=== PATIENT | female | born 1955 | race Asian ===

== ENCOUNTER → 2017-11-14 07:43 | Outpatient (CLI) | payer OTHER, SELFPAY ==
--- NOTE | 2017-11-14 08:15 | RAD_ITS ---
STUDY: X-RAY CHEST REASON FOR EXAM: Female, 62 years old. Chest pain TECHNIQUE: PA and lateral views of the chest. COMPARISON: Prior study of 10/14/2016 FINDINGS: There is minimal linear fibrosis or atelectasis of the right costophrenic angle. There is hemidiaphragmatic flattening with increased retrosternal airspace which may be associated with COPD. Normal size heart. Normal mediastinum and daiana. Normal visualized pulmonary arteries. There are calcified plaques of the aortic arch. There is demineralization of the osseous structures. Normal visualized ribs, clavicles, and shoulders. There is no demonstrated abnormality of the visualized soft tissue structures of the upper abdomen. RAD/Chest PA and Lateral IMPRESSION: Findings suggestive of COPD. Calcified plaques of the aortic arch. The bones are osteopenic. There is minimal linear fibrosis or atelectasis of the right costophrenic angle. This represents a new interval finding. Electronically Signed: Paras Ramirez MD at 17:59 EST , Service support ,
[2017-11-14 10:47] LABS: Anion Gap 7 (5-15); BUN 25 mg/dL (7-18); BUN/Creat Ratio 45.3 RATIO (10-20); Calcium,Total 8.3 mg/dL (8.5-10.1); Chloride 109 mmol/L (98-107); Cholesterol 186 mg/dL (200); Creatinine, Serum 0.55 mg/dL (0.55-1.02); EST Glomerular Filtration Rate 118 mL/min (>60); Est Glom Filt Rate - Afr Amer 142 mL/min (>60); Glucose 78 mg/dL (74-106); High Density Lipoprotein 62 mg/dL; Potassium 3.6 mmol/L (3.5-5.1); Sodium Level 143 mmol/L (136-145); T4 Free Direct 1.13 ng/dL (0.76-1.46); Thyroid Stim Hormone (TSH) 0.89 uIU/mL (0.358-3.74); Triglycerides 90 mg/dL; Very Low Density Lipoprotein 18 mg/dL (5-40)
== END ==
PROVIDERS: Family Provider Internal Medicine; PCP Internal Medicine; Visit Provider Internal Medicine
DX: R07.9 Chest pain, unspecified (principal); E03.9 Hypothyroidism, unspecified; I10 Essential (primary) hypertension; E87.6 Hypokalemia
CPT/HCPCS: 36415; 71046; 80048; 80061; 84439; 84443

== ENCOUNTER → 2017-11-22 06:52 | Outpatient (CLI) | payer OTHER, SELFPAY ==
--- NOTE | 2017-11-22 06:53 | CT_ITS ---
STUDY: CT CHEST WITHOUT CONTRAST REASON FOR EXAM: Female, 62 years old. Chest pain. Possible pulmonary scarring. RADIATION DOSAGE (If Supplied By Facility): CTDIvol = ( 9.21 ) mGy, DLP = ( 306.01 ) mGycm TECHNIQUE: Transaxial imaging was performed without the administration of intravenous contrast material. Multiplanar coronal and sagittal images were reformatted. Individualized dose optimization techniques were used for this CT. COMPARISON: Comparison is made with prior chest radiograph dated November 14, 2017. FINDINGS: Focal calcifications are seen in the left lobe of the thyroid. Single calcific density in the medial aspect of the isthmus. There is enlargement of the right lobe of the thyroid. There is evidence of groundglass appearance in both lung bases this may represent changes secondary to interstitial thickening and scarring. Small subpleural blebs are seen. Other differential diagnosis should include early bibasilar infiltrates a follow-up CT scan in 4 months is recommended for further evaluation. There is no demonstrated pleural abnormality. There are calcifications of the coronary arteries. Normal mediastinum. Normal hilar regions. Normal unenhanced pulmonary arteries. There is atherosclerotic calcification of the aortic arch. There is demineralization of the thoracic spine. There is no demonstrated abnormality of the visualized upper abdomen. CT/Chest without Contrast IMPRESSION: Groundglass appearance with subpleural blebs at the lung bases suggestive of bibasilar scarring. Follow-up CT scan in 4 months is recommended for further evaluation. Electronically Signed: Jey Harding MD at 8:47 EST Tel [phone], Service support ,
== END ==
PROVIDERS: Family Provider Internal Medicine; PCP Internal Medicine; Visit Provider Internal Medicine
DX: R07.9 Chest pain, unspecified (principal)
CPT/HCPCS: 71250

== ENCOUNTER → 2018-04-08 20:14 | Outpatient (CLI) | payer MEDICARE, SELFPAY | PROVIDERS: Family Provider Internal Medicine; PCP Internal Medicine; Visit Provider Psychiatry & Neurology Neurology | DX: G47.33 Obstructive sleep apnea (adult) (pediatric) (principal) | CPT/HCPCS: 95811 ==

== ENCOUNTER → 2018-08-15 14:24 | Outpatient (CLI) | payer MEDICARE, SELFPAY | PROVIDERS: Family Provider Internal Medicine; PCP Internal Medicine; Visit Provider Clinical Nurse Specialist Acute Care | DX: G47.33 Obstructive sleep apnea (adult) (pediatric) (principal) | CPT/HCPCS: 98960; G0463 ==

== ENCOUNTER → 2018-08-19 07:55 | Outpatient (CLI) | payer MEDICARE, OTHER, SELFPAY ==
--- NOTE | 2018-08-19 08:00 | CT_ITS ---
STUDY: CT CHEST WITHOUT CONTRAST REASON FOR EXAM: Female, 63 years old. Follow-up lung nodule RADIATION DOSAGE (If Supplied By Facility): CTDIvol = ( 9.01 ) mGy, DLP = ( 290.31 ) mGycm TECHNIQUE: Transaxial imaging was performed without the administration of intravenous contrast material. Multiplanar coronal and sagittal images were reformatted. Individualized dose optimization techniques were used for this CT. COMPARISON: November 22, 2017 CT chest FINDINGS: There is no visualized focal consolidation pleural effusion pulmonary edema pneumothorax are visualized suspicious nodule. There is trace bilateral lower lobe atelectasis. The groundglass opacity seen on prior study has nearly resolved. There is no demonstrated pleural abnormality. There is borderline cardiac enlargement. There is trace calcification of the coronary arteries. There are one or 2 nonspecific subcentimeter lymph nodes. Normal hilar regions. Normal unenhanced pulmonary arteries. There is atherosclerotic calcification of the aortic arch with tortuosity and elongation of the aortic arch and descending thoracic aorta. Normal osseous structures. There is a small hiatal hernia. There is an asymmetric appearance of the thyroid tissue. The left thyroid appears to been removed. There are surgical material demonstrated. Stable since prior study the right thyroid measures 3.8 x 1.6 cm in transverse view. There is a stable focus of low attenuation within the thyroid measuring 1.[address]/Chest without Contrast IMPRESSION: Minimal groundglass opacity in the lung bases compatible with atelectasis. No evidence of pulmonary nodule. Enlarged right thyroid lobe with lobulation and small focal cystic area status post left-sided thyroidectomy recommend follow-up ultrasound when appropriate. Electronically Signed: Birdie Wahl MD at 16:20 EST Tel , Service support ,
--- NOTE | 2018-08-19 08:14 | US_ITS ---
STUDY: THYROID ULTRASOUND REASON FOR EXAM: Female, 63 years old. Thyroid goiter TECHNIQUE: Ultrasound evaluation of the thyroid was performed with real-time and static nina-scale imaging. COMPARISON: None. FINDINGS: RIGHT LOBE: The right lobe of the thyroid gland measures 5.9 x 2.9 x 2.6 cm. There is a heterogeneous echotexture. There are 5 discrete nodules in the mid and lower pole of the RIGHT thyroid measuring 1.6 x 1.7 x 1.4 cm, 1.5 x 1.8 x 1.5 cm, 1.5 x 1 x 0.6 cm, 1.4 x 1.2 x 0.8 cm, and 0.8 x 1.0 x 0.9 cm. LEFT LOBE: There has been a LEFT thyroidectomy. There is a remnant of thyroid tissue measuring 2 x 0.7 x 0.8 centimeters. There are 2 small calcifications measuring 1 and 2 mm. ISTHMUS: The isthmus measures 2 mm . The regional lymph nodes are normal. US/Thyroid IMPRESSION: Status post LEFT thyroidectomy. There are multiple nodules in the RIGHT thyroid suggesting multinodular goiter. Electronically Signed: Bryon Mckeon MD at 7:14 EST , Service support ,
== END ==
PROVIDERS: Family Provider Internal Medicine; PCP Internal Medicine; Referring Provider Internal Medicine; Visit Provider Internal Medicine
DX: E04.9 Nontoxic goiter, unspecified (principal); R93.89 Abnormal findings on diagnostic imaging of other specified body structures; R91.8 Other nonspecific abnormal finding of lung field
CPT/HCPCS: 71250; 76536

== ENCOUNTER → 2018-09-06 11:49 | Outpatient (CLI) | payer MEDICARE, OTHER, SELFPAY ==
--- NOTE | 2018-09-06 | ASPS_PTH ---
PATIENT: SONAL WILKES LOC: [facility] U#:[id number] AGE/SX: 70/F ROOM: RE09/06/[address]: Dr. Sergio Colmenares MD : 1955 BED: DIS: SPEC #: [id number] RECD: 09/06/18 13:29 STATUS: MAGGIE CONCETTA #: [id number] XENA: 09/06/18 00:[address]: Sergio Colmenares DEPT: CYTOLOGY RECD BY: Samir Carpenter Tissues: Thyroid gland, NOS Procedures: Pap Stain (control) Special Stain Group II Cytology Other HEADER OPERATION: Ultrasound-guided fine needle aspiration right thyroid PRE-OP DIAGNOSIS: Multinodular goiter E04.2 TISSUE SUBMITTED: Fine needle aspiration right thyroid (12 slides) DIAGNOSIS CYTOLOGY Fine needle aspiration, right thyroid nodule (smears): Adequate for evaluation. Negative, consistent with colloid nodule. AM:kel 09/09/18 CYTOLOGY STUDY Slides are reviewed. CYTOLOGY GROSS Received are 12 smears labeled with the patient's name and designated per the requisition as right thyroid. Submitted for staining. 09/06/18 TC:5 CPT: 75754
[2018-09-06 08:19] VITALS: BMI 25.8
== END ==
PROVIDERS: Referring Provider Surgery; Visit Provider Surgery
DX: E04.2 Nontoxic multinodular goiter (principal)
CPT/HCPCS: 88161; 88313

== ENCOUNTER → 2018-10-15 11:00 | Outpatient (CLI) | payer MEDICARE, SELFPAY ==
[2018-09-13 09:29] VITALS: BMI 25.8
== END ==
PROVIDERS: PCP Internal Medicine; Referring Provider Internal Medicine; Visit Provider Internal Medicine
DX: T85.638A Leakage of other specified internal prosthetic devices, implants and grafts, initial encounter (principal)

== ENCOUNTER → 2018-10-28 16:02 | Outpatient (CLI) | payer MEDICARE, SELFPAY ==
[2018-10-09 10:07] VITALS: BMI 25.8
--- NOTE | 2018-10-28 16:27 | BI_ITS ---
MAMMOGRAPHY - BILATERAL SCREENING REASON FOR EXAM: Female, 63 years old. Routine annual screening examination. PERTINENT HISTORY: Non-contributory. TECHNIQUE: Digital bilateral breast ko (3D mammographic acquisition) in the CC and MLO projections. 2-D mediolateral oblique (MLO) and craniocaudad (CC) views of both breasts were obtained. CAD: Full Field Digital Mammography with Computer Added Detection was performed. COMPARISON: Comparison is made with prior study dated September 17, 2017. FINDINGS: Breast Composition: The breasts are almost entirely fatty. There are no dominant masses or suspicious calcifications. Stable small benign-appearing bilateral axillary lymph nodes. No other significant abnormalities are identified. There has been no significant change since the prior study. BI/SCREENING MAMM (CAD), BILAT IMPRESSION: Stable bilateral screening mammogram. Yearly follow-up mammogram recommended. (A) ASSESSMENT CATEGORY: BIRADS Category 2: Benign. A letter regarding these results will be sent to the patient by the facility within 30 days. Approximately 10% of breast cancers are not detected by mammography. A normal mammogram should not delay biopsy of a clinically suspicious abnormality. [id number] Electronically Signed: Jey Harding MD at 12:45 EST , Service support ,
== END ==
PROVIDERS: Family Provider Internal Medicine; PCP Internal Medicine; Referring Provider Internal Medicine; Visit Provider Internal Medicine
DX: Z12.31 Encounter for screening mammogram for malignant neoplasm of breast (principal)
CPT/HCPCS: 77063; 77067

== ENCOUNTER → 2018-12-30 11:15 | Outpatient (CLI) | payer MEDICARE, SELFPAY ==
[2018-12-30 10:44] VITALS: BMI 25.8
[2018-12-30 12:50] LABS: Anion Gap 6 (5-15); BUN 14 mg/dL (7-18); BUN/Creat Ratio 25.4 RATIO (10-20); Calcium,Total 8.7 mg/dL (8.5-10.1); Chloride 108 mmol/L (98-107); Creatinine, Serum 0.55 mg/dL (0.55-1.02); EST Glomerular Filtration Rate 117 mL/min (>60); Est Glom Filt Rate - Afr Amer 142 mL/min (>60); Glucose 87 mg/dL (74-106); Sodium Level 143 mmol/L (136-145)
[2018-12-30 14:07] LABS: Bacteria 0 SEEN /hpf (None Seen); Mucous, Urine 0 SEEN /hpf (<or=2+); Red Blood Cells-Urine 0 SEEN /hpf (0-5); Squamous Epithelial Cells - UA 0 SEEN /hpf (5-10); White Blood Cells 0 SEEN /hpf (0-5)
[2018-12-30 14:34] LABS: Color, Urine Yellow (Yellow); Glucose, Dipstick Normal (Normal); Ketone-Dipstick Negative (Negative); Leukocyte Esterase-Dipstick Negative /ul (Negative); Nitrite-Dipstick Negative (Negative); Occult Blood-Urine Negative /ul (Negative); Protein-Dipstick Negative (Negative); Urine Bilirubin Dipstick Negative (Negative); Urine Clarity Clear (Clear); Urine Urobilinogen Normal (Normal); Urine pH 6.5 (5.0 - 8.0)
== END ==
PROVIDERS: Family Provider Internal Medicine; PCP Internal Medicine; Referring Provider Internal Medicine; Visit Provider Internal Medicine
DX: N39.0 Urinary tract infection, site not specified (principal)
CPT/HCPCS: 36415; 80048; 81001; 87086; 87088

== ENCOUNTER → 2019-07-08 11:22 | Outpatient (CLI) | payer MEDICARE, OTHER, SELFPAY ==
[2019-07-08 10:36] VITALS: BMI 25.8
[2019-07-08 14:07] LABS: Absolute Lymphocyte Count 2.03 X10^3/uL (0.83-4.51); Absolute Neutrophil Count 3.7 X10^3/uL (2.0-7.7); Basophil# 0.06 X10^3/uL; Basophil% 0.9 % (0-1); Eosinophil# 0.16 X10^3/uL; Eosinophils% 2.5 % (0-5); Hemoglobin 12.8 g/dL (12.0-15.0); Lymphocyte # 2.03 X10^3/ul (4.0); Mean Corpuscular Hgb 30.6 pg (27.0-32.0); Mean Corpuscular Volume 95.7 fL (81-99); Mean Platelet Vol. 10.5 fl (6.2-12.0); Monocyte# 0.42 X10^3/uL; Monocyte% 6.6 % (0-10); NRBC Flagged by Analyzer 0 % (0-5); Neutrophil # 3.65 X10^3/uL (2.7-7.7); Neutrophil % 57.7 % (47-70); Platelet Count 252 K/mm3 (150-450); RBC Distribution Width CV 12.7 % (11.6-14.6); RBC Distribution Width SD 44.8 fl (35.1-43.9); Red Blood Count 4.18 M/mm3 (4.2-5.4); White Blood Count 6.3 K/mm3 (4.4-11.0)
[2019-07-08 14:40] LABS: ALB/GLOB Ratio 1.1 RATIO (0.9-2.4); AST(SGOT) 24 U/L (15-37); Alanine Aminotransfer ALT/SGPT 35 U/L (13-56); Albumin, Serum 3.8 g/dL (3.2-5.0); Alkaline Phosphatase 65 U/L (45-117); Anion Gap 7 (5-15); BUN 16 mg/dL (7-18); BUN/Creat Ratio 26.8 RATIO (10-20); Calcium,Total 8.7 mg/dL (8.5-10.1); Chloride 107 mmol/L (98-107); Cholesterol 202 mg/dL (200); EST Glomerular Filtration Rate 107 mL/min (>60); Est Glom Filt Rate - Afr Amer 129 mL/min (>60); Globulin 3.6 g/dL (2.2-4.2); Glucose 72 mg/dL (74-106); High Density Lipoprotein 65 mg/dL; Potassium 4.2 mmol/L (3.5-5.1); Protein, Total 7.4 g/dL (6.4-8.2); Sodium Level 143 mmol/L (136-145); Thyroid Stim Hormone (TSH) 0.63 uIU/mL (0.358-3.74); Triglycerides 118 mg/dL; Very Low Density Lipoprotein 24 mg/dL (5-40)
== END ==
PROVIDERS: Family Provider Internal Medicine; PCP Internal Medicine; Visit Provider Internal Medicine
DX: I10 Essential (primary) hypertension (principal); E03.9 Hypothyroidism, unspecified
CPT/HCPCS: 36415; 80053; 80061; 84443; 85025

== ENCOUNTER → 2019-07-10 10:31 | Outpatient (CLI) | payer MEDICARE, OTHER, SELFPAY ==
[2019-07-08 10:36] VITALS: BMI 25.8
--- NOTE | 2019-07-10 10:34 | EKG12_ITS ---
Test Reason : PRE OP Blood Pressure : / mmHG Vent. Rate : 077 BPM Atrial Rate : 077 BPM P-R Int : 120 ms QRS Dur : 070 ms QT Int : 354 ms P-R-T Axes : 045 044 -44 degrees QTc Int : 400 ms Normal sinus rhythm T wave abnormality, consider anterior ischemia Abnormal ECG Confirmed by DUANE MC, ENDER ([id number]), map editor KOLBY GAY ([id number]) on 07/16/2019 9:25:24 A M Referred By: Kranthi Kramer Confirmed By:RAI ZEPEDA MD
== END ==
PROVIDERS: Family Provider Internal Medicine; PCP Internal Medicine; Referring Provider Internal Medicine; Visit Provider Internal Medicine
DX: I10 Essential (primary) hypertension (principal)
CPT/HCPCS: 93005

== ENCOUNTER → 2019-08-01 06:19 | Outpatient (CLI) | payer MEDICARE, OTHER, SELFPAY ==
[2019-07-08 10:36] VITALS: BMI 25.8
[2019-07-24 11:26] VITALS: BMI 25.8
--- NOTE | 2019-08-01 11:45 | STRESSREP ---
Stress Test Report Date: 08-01-19 Procedure: Exercise tolerance test/imaging study Indications: Chest pain; abnormal ECG; atrial fibrillation status post EPS/RFA Consent: Per the patient Procedure: The patient exercised on a Joey protocol for 3 minutes completing Stage I achieving a peak heart rate of 206 bpm (133% predicted maximal heart rate) with a peak blood pressure of 146/72 mmHg and a peak met capacity of approximately 4 MET's. The baseline ECG demonstrated normal sinus rhythm; nonspecific T wave abnormality. The peak exercise ECG demonstrated somatic/motion artifact with nonspecific ST/T wave abnormality. There were occasional PACs and PVCs during exercise; there were brief episodes of an irregular narrow complex tachycardia appearing compatible with PAF during exercise; there was relatively regular narrow complex tachycardia appearing compatible with PSVT during recovery lasting 3 to 4 minutes with subsequent spontaneous resolution to sinus rhythm followed by occasional PACs and PVCs; During the episode appearing compatible PSVT there was associated nonspecific ST/T wave abnormality. The functional capacity was considered decreased. There was no complaint of chest discomfort during exercise or recovery. The examination was discontinued secondary to leg discomfort. Impression: 1. Technically adequate (percent predicted maximal heart rate greater than 85%) exercise tolerance test 2. Peak exercise ECG with somatic/motion artifact with nonspecific ST/T wave abnormality 3. There were occasional PACs and PVCs during exercise; there were brief episodes of an irregular narrow complex tachycardia appearing compatible PAF during exercise; there was relatively regular narrow complex tachycardia appearing compatible with PSVT during recovery lasting 3 to 4 minutes with subsequent spontaneous resolution to sinus rhythm followed by occasional PACs and PVCs; during the episode appearing compatible PSVT there was associated nonspecific ST/T wave abnormality 4. Nuclear images pending Myocardial perfusion imaging study: Technique: The patient was injected with 12.0 mCi of technetium 99m Cardiolite and subsequently rest SPECT Cardiolite nuclear imaging was obtained in the horizontal long, vertical long, and short axis views. The patient exercised on a Joey protocol for 3 minutes completing Stage I achieving a peak heart rate of 206 bpm (133% predicted maximal heart rate) with a peak blood pressure of 146/72 mmHg and a peak met capacity of approximately 4 MET's. The patient was injected with 36.0 mCi of technetium 99m Cardiolite and subsequently stress SPECT Cardiolite nuclear imaging was obtained in the horizontal long, vertical long, and short axis views. A gated Cardiolite study at peak stress was obtained. Interpretation: Rest and stress SPECT Cardiolite nuclear imaging status post realignment, normalization, and attenuation correction, demonstrates the appearance of relative uniform tracer uptake and myocardial perfusion appearing within normal limits. There is end systolic thickening and brightening. The gated Cardiolite study demonstrates myocardial thickening and inward wall motion. The reported LVEF is 87 %. Impression: 1. Rest and stress SPECT Cardiolite nuclear imaging demonstrate relative uniform tracer uptake and myocardial perfusion appearing within normal limits. 2. The gated Cardiolite study reports an LVEF of 87 %. Comment: The patient noted she had not taken her beta-mika prior to her exercise tolerance test. Status post completion of the patient's exercise tolerance test she reported being back to her baseline status with no ongoing symptoms and appeared to be hemodynamically stable. The patient was advised to continue her medical management with her beta-mika and continue outpatient follow-up with her primary care physician for further recommendations. This note was generated with [employer] software. It may contain incorrect words, spelling, and punctuation that were not noted in checking the note before signing.
== END ==
PROVIDERS: Family Provider Internal Medicine; PCP Internal Medicine; Referring Provider Internal Medicine; Visit Provider Internal Medicine
DX: R94.31 Abnormal electrocardiogram [ECG] [EKG] (principal); I10 Essential (primary) hypertension; I50.9 Heart failure, unspecified
CPT/HCPCS: 78452; 93017; A9500; A4216

== ENCOUNTER → 2019-10-22 12:59 | Outpatient (CLI) | payer MEDICARE, OTHER, SELFPAY ==
[2019-10-13 09:42] VITALS: BMI 25.8
--- NOTE | 2019-10-22 13:02 | US_ITS ---
STUDY: THYROID ULTRASOUND REASON FOR EXAM: Female, 64 years old. Nodules -- LT THYROID REMOVED TECHNIQUE: Ultrasound evaluation of the thyroid was performed with real-time and static nina-scale imaging. COMPARISON: Comparison is made with prior examination dated August 19, 2018. FINDINGS: RIGHT LOBE: The right lobe of the thyroid gland is enlarged and measures 5.8 cm x 2.4 cm x 2.0 cm. There is a heterogeneous echotexture. Once again, there are 5 discrete nodules in the mid and lower pole of the right thyroid. The largest measures 1.8 cm x 1.7 cm x 1.5 cm. This is in the lower pole. This is solid and cystic in nature. This is unchanged. LEFT LOBE: The left lobe of the thyroid gland has been surgically removed. ISTHMUS: The isthmus measures 2.2 mm. The regional lymph nodes are normal. US/Thyroid IMPRESSION: Multiple nodules are seen in the right lobe of the thyroid. This is unchanged. The patient is status post left thyroidectomy. Electronically Signed: Jey Harding, at 14:06 EST , Service support ,
--- NOTE | 2019-10-22 13:02 | BI_ITS ---
MAMMOGRAPHY - BILATERAL SCREENING REASON FOR EXAM: Female, 64 years old. Routine annual screening examination. PERTINENT HISTORY: Non-contributory. TECHNIQUE: Digital bilateral breast claudia (3D mammographic acquisition) in the CC and MLO projections. 2-D mediolateral oblique (MLO) and craniocaudad (CC) views of both breasts were obtained. CAD: Full Field Digital Mammography with Computer Added Detection was performed. COMPARISON: Comparison is made with prior study dated October 28, 2018 and September 17, 2017. FINDINGS: Breast Composition: There are scattered areas of fibroglandular density. There are no dominant masses or suspicious calcifications. Stable small bilateral axillary lymph nodes. No other significant abnormalities are identified. There has been no significant change since the prior study. BI/SCREEN MAMM (CAD) W/CLAUDIA BILAT IMPRESSION: Stable bilateral screening mammogram. Yearly follow-up mammogram recommended. (A) ASSESSMENT CATEGORY: BIRADS Category 2: Benign. A letter regarding these results will be sent to the patient by the facility within 30 days. Approximately 10% of breast cancers are not detected by mammography. A normal mammogram should not delay biopsy of a clinically suspicious abnormality. [id number] Electronically Signed: Jey Harding, at 15:15 EST , Service support ,
== END ==
PROVIDERS: Family Provider Internal Medicine; PCP Internal Medicine; Referring Provider Internal Medicine; Visit Provider Internal Medicine
DX: Z12.31 Encounter for screening mammogram for malignant neoplasm of breast (principal); E04.1 Nontoxic single thyroid nodule
CPT/HCPCS: 76536; 77063; 77067

== ENCOUNTER → 2020-06-23 10:47 | Outpatient (CLI) | payer MEDICARE, OTHER, SELFPAY ==
[2020-06-23 10:15] VITALS: BMI 25.8
[2020-06-23 12:43] LABS: Absolute Lymphocyte Count 1.97 X10^3/uL (0.83-4.51); Absolute Neutrophil Count 3.7 X10^3/uL (2.0-7.7); Basophil# 0.04 X10^3/uL; Basophil% 0.6 % (0-1); Eosinophil# 0.16 X10^3/uL; Eosinophils% 2.5 % (0-5); Hematocrit 38.8 % (37-47); Hemoglobin 12.6 g/dL (12.0-15.0); Lymphocyte # 1.97 X10^3/ul (4.0); Lymphocyte % 31.2 % (19-41); Mean Corp Hgb Conc 32.5 g/dL (32-36); Mean Corpuscular Hgb 30.7 pg (27.0-32.0); Mean Corpuscular Volume 94.6 fL (81-99); Mean Platelet Vol. 10.5 fl (6.2-12.0); Monocyte# 0.42 X10^3/uL; Monocyte% 6.7 % (0-10); NRBC Flagged by Analyzer 0 % (0-5); Neutrophil # 3.69 X10^3/uL (2.7-7.7); Neutrophil % 58.5 % (47-70); Platelet Count 251 K/mm3 (150-450); RBC Distribution Width CV 12.7 % (11.6-14.6); RBC Distribution Width SD 43.8 fl (35.1-43.9); White Blood Count 6.3 K/mm3 (4.4-11.0)
[2020-06-23 13:17] LABS: AST(SGOT) 18 U/L (15-37); Alanine Aminotransfer ALT/SGPT 30 U/L (13-56); Albumin, Serum 3.7 g/dL (3.2-5.0); Alkaline Phosphatase 65 U/L (45-117); Anion Gap 4 (5-15); BUN 20 mg/dL (7-18); Chloride 110 mmol/L (98-107); Cholesterol 194 mg/dL (200); Creatinine, Serum 0.61 mg/dL (0.55-1.02); EST Glomerular Filtration Rate 105 mL/min (>60); Est Glom Filt Rate - Afr Amer 127 mL/min (>60); Globulin 3.6 g/dL (2.2-4.2); Glucose 90 mg/dL (74-106); High Density Lipoprotein 65 mg/dL; Potassium 3.6 mmol/L (3.5-5.1); Protein, Total 7.3 g/dL (6.4-8.2); Sodium Level 142 mmol/L (136-145); Triglycerides 160 mg/dL; Very Low Density Lipoprotein 32 mg/dL (5-40)
== END ==
PROVIDERS: PCP Internal Medicine; Visit Provider Internal Medicine
DX: I10 Essential (primary) hypertension (principal)
CPT/HCPCS: 36415; 80053; 80061; 85025

== ENCOUNTER → 2020-08-31 11:00 | Outpatient (CLI) | payer MEDICARE, OTHER, SELFPAY ==
[2020-08-19 10:22] VITALS: BMI 26.4
== END ==
PROVIDERS: PCP Internal Medicine; Referring Provider Nurse Practitioner Acute Care; Visit Provider Nurse Practitioner Acute Care
DX: G47.33 Obstructive sleep apnea (adult) (pediatric) (principal)
CPT/HCPCS: 98960; G0463

== ENCOUNTER → 2020-10-28 15:00 | Outpatient (CLI) | payer MEDICARE, SELFPAY ==
[2020-10-08 10:16] VITALS: BMI 26.0
--- NOTE | 2020-10-28 15:03 | BI_ITS ---
MAMMOGRAPHY - BILATERAL SCREENING REASON FOR EXAM: Female, 65 years old. Routine annual screening examination. PERTINENT HISTORY: Non-contributory. TECHNIQUE: Digital bilateral breast claudia (3D mammographic acquisition) in the CC and MLO projections. 2-D mediolateral oblique (MLO) and craniocaudad (CC) views of both breasts were obtained. CAD: Full Field Digital Mammography with Computer Added Detection was performed. COMPARISON: Comparison is made with prior study dated 10/22/2019 and 10/28/2018. FINDINGS: Breast Composition: There are scattered areas of fibroglandular density. There are no dominant masses or suspicious calcifications. No other significant abnormalities are identified. There has been no significant change since the prior study. BI/SCRN MAMM (CAD)W/CLAUDIA BILAT IMPRESSION: Stable bilateral screening mammogram. Yearly follow-up mammogram recommended. (A) ASSESSMENT CATEGORY: BIRADS Category 1: Negative. A letter regarding these results will be sent to the patient by the facility within 30 days. Approximately 10% of breast cancers are not detected by mammography. A normal mammogram should not delay biopsy of a clinically suspicious abnormality. [id number] Electronically Signed: Jey Harding MD at 8:20 EST , Service support ,
== END ==
PROVIDERS: PCP Internal Medicine; Referring Provider Internal Medicine; Visit Provider Internal Medicine
DX: Z12.31 Encounter for screening mammogram for malignant neoplasm of breast (principal)
CPT/HCPCS: 77063; 77067

== ENCOUNTER → 2020-12-13 20:05 | Outpatient (CLI) | payer MEDICARE, SELFPAY ==
[2020-11-30 10:59] VITALS: BMI 25.8
== END ==
PROVIDERS: PCP Internal Medicine; Referring Provider Internal Medicine Critical Care Medicine; Visit Provider Internal Medicine Critical Care Medicine
DX: G47.33 Obstructive sleep apnea (adult) (pediatric) (principal)
CPT/HCPCS: 95811

== ENCOUNTER → 2021-07-08 10:49 | Outpatient (CLI) | payer MEDICARE, SELFPAY ==
[2021-07-08 12:18] LABS: Absolute Lymphocyte Count 1.85 X10^3/uL (0.83-4.51); Absolute Neutrophil Count 3.5 X10^3/uL (2.0-7.7); Basophil# 0.05 X10^3/uL; Basophil% 0.9 % (0-1); Eosinophil# 0.11 X10^3/uL; Eosinophils% 1.9 % (0-5); Hematocrit 39.7 % (37-47); Hemoglobin 13.2 g/dL (12.0-15.0); Lymphocyte # 1.85 X10^3/ul (0.83-4.51); Lymphocyte % 31.7 % (19-41); Mean Corp Hgb Conc 33.2 g/dL (32-36); Mean Corpuscular Hgb 31.4 pg (27.0-32.0); Mean Corpuscular Volume 94.3 fL (81-99); Monocyte# 0.31 X10^3/uL; Monocyte% 5.3 % (0-10); NRBC Flagged by Analyzer 0 % (0-5); Neutrophil # 3.49 X10^3/uL (2.7-7.7); Neutrophil % 59.9 % (47-70); Platelet Count 261 K/mm3 (150-450); RBC Distribution Width CV 13.1 % (11.6-14.6); RBC Distribution Width SD 44.4 fl (35.1-43.9); Red Blood Count 4.21 M/mm3 (4.2-5.4); White Blood Count 5.8 K/mm3 (4.4-11.0)
[2021-07-08 12:57] LABS: AST(SGOT) 17 U/L (15-37); Alanine Aminotransfer ALT/SGPT 25 U/L (13-56); Albumin, Serum 3.8 g/dL (3.2-5.0); Alkaline Phosphatase 56 U/L (45-117); Anion Gap 5 (5-15); BUN 21 mg/dL (7-18); BUN/Creat Ratio 33.4 RATIO (10-20); Chloride 108 mmol/L (98-107); Cholesterol 211 mg/dL (200); Creatinine, Serum 0.63 mg/dL (0.55-1.02); EST Glomerular Filtration Rate 100 mL/min (>60); Est Glom Filt Rate - Afr Amer 121 mL/min (>60); Globulin 3.9 g/dL (2.2-4.2); Glucose 73 mg/dL (74-106); High Density Lipoprotein 65 mg/dL; Potassium 4.1 mmol/L (3.5-5.1); Protein, Total 7.7 g/dL (6.4-8.2); Sodium Level 141 mmol/L (136-145); Thyroid Stim Hormone (TSH) 0.27 uIU/mL (0.358-3.74); Triglycerides 123 mg/dL; Very Low Density Lipoprotein 25 mg/dL (5-40)
== END ==
PROVIDERS: PCP Internal Medicine; Referring Provider Internal Medicine; Visit Provider Internal Medicine
DX: I10 Essential (primary) hypertension (principal)
CPT/HCPCS: 36415; 80053; 80061; 84443; 85025

== ENCOUNTER 2021-10-14 10:20 | Outpatient (CLI) | payer MEDICARE, SELFPAY ==
[2021-10-14 11:33] LABS: T4 Free Direct 0.99 ng/dL (0.76-1.46); Thyroid Stim Hormone (TSH) 0.36 uIU/mL (0.358-3.74)
== END 2021-10-14 23:59 | disposition short-term general hospital (02) ==
LOC: BIMLAB 10:20
PROVIDERS: PCP Internal Medicine; Referring Provider Internal Medicine; Visit Provider Internal Medicine
DX: R94.6 Abnormal results of thyroid function studies (principal)
CPT/HCPCS: 36415; 84439; 84443

== ENCOUNTER 2021-11-10 20:08 | Outpatient (CLI) | payer MEDICARE, SELFPAY | END 2021-11-10 23:59 | disposition home or self-care (01) | PROVIDERS: PCP Internal Medicine; Referring Provider Nurse Practitioner Acute Care; Visit Provider Nurse Practitioner Acute Care | DX: G47.33 Obstructive sleep apnea (adult) (pediatric) (principal) | CPT/HCPCS: 95811 ==

== ENCOUNTER 2021-11-29 13:11 | Outpatient (CLI) | payer MEDICARE, SELFPAY ==
--- NOTE | 2021-11-29 13:13 | BI_ITS ---
MAMMOGRAPHY - BILATERAL SCREENING REASON FOR EXAM: Female, 66 years old. Routine annual screening examination. PERTINENT HISTORY: Non-contributory. TECHNIQUE: Digital bilateral breast claudia (3D mammographic acquisition) in the CC and MLO projections. 2-D mediolateral oblique (MLO) and craniocaudad (CC) views of both breasts were obtained. CAD: Full Field Digital Mammography with Computer Added Detection was performed. COMPARISON: Comparison is made with prior study dated 10/28/2020 and 04/21/2020. FINDINGS: Breast Composition: There are scattered areas of fibroglandular density. There are no dominant masses or suspicious calcifications. Stable small benign-appearing bilateral No other significant abnormalities are identified. There has been no significant change since the prior study. BI/SCRN MAMM (CAD)W/CLAUDIA BILAT IMPRESSION: Stable bilateral screening mammogram. Yearly follow-up mammogram recommended. (A) ASSESSMENT CATEGORY: BIRADS Category 2: Benign. A letter regarding these results will be sent to the patient by the facility within 30 days. Approximately 10% of breast cancers are not detected by mammography. A normal mammogram should not delay biopsy of a clinically suspicious abnormality. [id number] Electronically Signed: Jey Harding MD at 14:21 EST ,
== END 2021-11-29 23:59 | disposition home or self-care (01) ==
LOC: OPBI 13:12
PROVIDERS: PCP Internal Medicine; Referring Provider Nurse Practitioner Family; Visit Provider Nurse Practitioner Family
DX: Z12.31 Encounter for screening mammogram for malignant neoplasm of breast (principal)
CPT/HCPCS: 77063; 77067

== ENCOUNTER 2022-01-03 09:00 | Outpatient (CLI) | payer MEDICARE, SELFPAY | END 2022-01-03 23:59 | disposition home or self-care (01) | LOC: SL 09:56 | PROVIDERS: PCP Internal Medicine; Referring Provider Nurse Practitioner Acute Care; Visit Provider Nurse Practitioner Acute Care | DX: Z46.89 Encounter for fitting and adjustment of other specified devices (principal) ==

== ENCOUNTER → 2022-05-09 | Outpatient (CLI) | payer MEDICARE, SELFPAY | END | disposition home or self-care (01) | LOC: SL 11:20 | PROVIDERS: PCP Internal Medicine; Visit Provider Nurse Practitioner Acute Care | DX: G47.33 Obstructive sleep apnea (adult) (pediatric) (principal) | CPT/HCPCS: 98960; G0463 ==

== ENCOUNTER → 2022-07-27 | Outpatient (CLI) | payer MEDICARE, SELFPAY ==
[2022-07-27 16:37] LABS: Absolute Lymphocyte Count 2.18 X10^3/uL (0.83-4.51); Basophil# 0.06 X10^3/uL; Basophil% 0.9 % (0-1); Eosinophil# 0.21 X10^3/uL; Hematocrit 40.6 % (37-47); Hemoglobin 13.6 g/dL (12.0-15.0); Lymphocyte # 2.18 X10^3/ul (0.83-4.51); Lymphocyte % 31.1 % (19-41); Mean Corp Hgb Conc 33.5 g/dL (32-36); Mean Corpuscular Volume 92.5 fL (81-99); Mean Platelet Vol. 10.3 fl (6.2-12.0); Monocyte# 0.51 X10^3/uL; Monocyte% 7.3 % (0-10); NRBC Flagged by Analyzer 0 % (0-5); Neutrophil # 4.03 X10^3/uL (2.7-7.7); Neutrophil % 57.4 % (47-70); Platelet Count 271 K/mm3 (150-450); RBC Distribution Width CV 12.2 % (11.6-14.6); RBC Distribution Width SD 41.6 fl (35.1-43.9); Red Blood Count 4.39 M/mm3 (4.2-5.4)
[2022-07-27 16:51] LABS: ALB/GLOB Ratio 1.1 RATIO (0.9-2.4); AST(SGOT) 27 U/L (15-37); Alanine Aminotransfer ALT/SGPT 48 U/L (13-56); Albumin, Serum 3.7 g/dL (3.2-5.0); Alkaline Phosphatase 67 U/L (45-117); Anion Gap 4 (5-15); BUN 19 mg/dL (7-18); BUN/Creat Ratio 17.4 RATIO (10-20); Calcium,Total 8.6 mg/dL (8.5-10.1); Chloride 110 mmol/L (98-107); Cholesterol 214 mg/dL (200); Creatinine, Serum 1.09 mg/dL (0.55-1.02); EST Glomerular Filtration Rate 53 mL/min (>60); Est Glom Filt Rate - Afr Amer 64 mL/min (>60); Globulin 3.4 g/dL (2.2-4.2); Glucose 96 mg/dL (74-106); High Density Lipoprotein 58 mg/dL; Potassium 3.6 mmol/L (3.5-5.1); Protein, Total 7.1 g/dL (6.4-8.2); Sodium Level 142 mmol/L (136-145); Triglycerides 152 mg/dL; Very Low Density Lipoprotein 30 mg/dL (5-40)
== END | disposition home or self-care (01) ==
LOC: BIMLAB 14:38
PROVIDERS: PCP Internal Medicine; Referring Provider Internal Medicine; Visit Provider Internal Medicine
DX: I10 Essential (primary) hypertension (principal)
CPT/HCPCS: 36415; 80053; 80061; 85025

== ENCOUNTER 2022-09-07 13:30 | Outpatient (RCR) | payer MEDICARE, SELFPAY ==
--- NOTE | 2022-08-03 09:00 | HP.PTEVAL ---
Patient's Visit Information SONAL WILKES is a 67 year old F referred to Physical Therapy by Dr. Kranthi Kramer MD with a diagnosis of PAIN IN R HIP. Date of Evaluation: 08/03/22 Physical Therapist: Merlene Dangelo PT, Cert MDT - Visit Plan Frequency: 2-3x /Week Duration: 4-6 Weeks Plan: *CHECK AUTH: RECORD # OF VISITS APPROVED AND EXPIRATION DATE. CHECK CODES APPROVED WITH POC*. POSTURE CORRECTION/STRENGTHENING, INSTRUCTION IN APPROPRIATE BODY MECHANICS AND ACTIVITY MODIFICATIONS. DLS STARTING WITH A NEUTRAL SPINE PROGRESSING ROM TOLERATED. RANULFO LE ROM, STRETCHING AND STRENGTHENING. HEP INSTRUCTION. 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 WORKING 2 DAYS A WEEK. WORK INVOLVES STANDING AND WALKING. Present symptoms: RIGHT LOW BACK, RIGHT HIP AND RIGHT THIGH PAIN TO THE KNEE. RIGHT THIGH NUMBNESS. Present since: COUPLE YEARS. Pain Scale: WORST 8/10, LEAST 3/10. Currently: 3/10. Is it getting better, worse or staying the same: UNCHANGING. Commenced as a result of: NO APPARENT REASON. Symptoms at onset: SAME. Worse: STANDING AND WALKING. Better: SITTING. Disturbed sleep: NO. Previous history/Previous treatment: PAIN MEDICINE. NO BACK OR HIP SURGERY. NO BACK OR HIP INJECTIONS. NO CHIROPRACTIC. NO PHYSICAL THERAPY FOR BACK OR HIP. Coughing/sneezing/straining: NO. Gait: PATIENT REPORTS IT HURTS TO STAND AND WALK ON IT. SHE REPORTS SHE LIMPS. NOT CURRENTLY USING ANY ASSISTIVE DEVICES. Bowel or Bladder Dysfunction: NO. Accidents: NO. Unexplained weight loss: NO. Imaging: STUDY: X-RAY - PELVIS AND RIGHT HIP. REASON FOR EXAM: Female, 67 years old. Right Hip Pain. TECHNIQUE: 3 views of the pelvis and hip. COMPARISON: None. . FINDINGS: There is a non-specific bowel gas pattern. Normal visualized soft tissue. structures. Osteopenia. Mild arthrosis of both sacroiliac joints. Normal bilateral superior and. inferior pubic rami. Mild arthrosis of the symphysis pubis. Normal. bilateral ischial tuberosities. Mild arthrosis of both hips. . RAD/HIP, UNI W/ Pelvis 2-3 Views. IMPRESSION: Osteopenia with mild arthrosis of the sacroiliac joints, symphysis pubis. and both hips. . No acute abnormality, evidence of erosive changes or fusion. . Electronically Signed: Cameron Donovan,. at 12:09 EDT. PMH/Recent major surgery: HEART ABLATION IN THE - Objective Sitting/Standing Posture: POOR. NO RELEVENT LUMBAR LATERAL SHIFT. DECREASED LORDOSIS. Active Correction of posture: NE. Other Observations: THIS PATIENT AMBULATES INDEP'LY INTO PT WITH DECREASED CADANCE LIMPING ON RIGHT LE. NO AD OR LOB. PATIENT IS ABLE TO TRANSFER INDEP'LY FROM SIT TO STAND WITHOUT UE ASSIST. Sensory deficit: DECREASED RIGHT ANTERIOR AND LATERAL R THIGH LIGHT TOUCH SENSATION COMPARED TO LEFT. ROM deficit: MILD RANULFO HS AND GASTROC SOLEUS COMPLEX TIGHTNESS. FULL PAINFREE RANULFO HIP FLEXION. RANULFO HIP ROTATION, ABD AND EXTENSION ROM WFL AND SYMMETRICAL. PATIENT DENIES INCREASED RIGHT BACK AND HIP PAIN WITH RANULFO LE ROM TESTING. Motor deficit: RANULFO LE STRENGTH GROSSLY 5/5 WITH MMT'ING AND PATIENT DENIES INCREASED PAIN WITH MMT'ING. Dural Signs: results unclear. Lumbar mvmt loss: flex - MOD. ext - JOSE. R SG - MOD. L SG - MIN. PATIENT C/O. Core strength: POOR. Palpation: NO ACUTE LUMBAR OR RIGHT HIP TENDERNESS WITH PALPATION. - Balance/Special Test Scores Oswestry Low Back Score: 11 - Goals Goal 1:: DECREASE C/O LOW BACK AND RIGHT LE SX'S Goal Time Frame: 4-6 Weeks Goal 2:: IMPROVE LIFTING, WORK/HOMEMAKING STANDING AND WALKING FUNCTION Goal Time Frame: 4-6 Weeks Goal 3:: INSTRUCT IN PROPHYLAXIS Goal Time Frame: 4-6 Weeks - Anticipated Interventions Patient/Client Instruction: Educate patient on: Condition, Plan of Care, Risk Factors For the Purpose of:: To improve self management Therapeutic Exercise to Include: Strength training, Body mechanics, Postural training, Flexibilty training, Gait and locomotor training, Neuromotor development, In an aquatic setting, Dynamic Lumbar Stabilization For the Purpose of:: To decrease pain, To increase ROM, To improve muscle performance and motor function, To increase tolerance to activity/condition/position, To improve ability of physical actions for home/community/work/leisure, To improve gait and locomotor functions Thermo therapy (hot pack): Yes Ultrasound (thermal/non thermal): Yes For the Purpose of:: To decrease pain, To improve nutrient delivery to tissue Thank you for the opportunity to evaluate your patient. For Medicare and Medicare HMO plans, please review the plan of care and approve it. It will need to be FAXED BACK to us at [phone] for Medicare purposes. For Medicare only, by signing this I certify the plan of care. Please let me know if there are questions or concerns regarding this plan of care. Physician Signature: Date:
--- NOTE | 2022-09-07 13:43 | HP.PTDCSUM_ITS ---
It has been my pleasure to treat SONAL WILKES referred by Dr. Kranthi Kramer MD, with the diagnosis of PAIN IN R HIP for a total of 7 visit(s). Discharge Date: 09/07/22 Please see the following information for a summary of their discharge status. Subjective: PATIENT REPORTS THE WATER IS HELPING AND SHE IS GLAD WE SUGGESTED IT. PATIENT REPORTS SHE IS HAVING LESS PAIN. STATES SHE HAS BEEN TRYING TO DO HER HEP AT LEAST ONCE A DAY TOO. PATIENT REPORTS SHE IS GOING TO LOOK INTO GETTING A [employer] MEMBERSHIP TO CONTINUE THE WATER EX'S ON HER OWN. % Improvement: 80 Objective/Function: PATIENT WAS SEEN TODAY FOR RE-ASSESSMENT OF PROGRESS TOWARD THE SET PT GOALS AND THE NEED FOR FURTHER PHYSICAL THERAPY VS READINESS FOR DISCHARGE. ALL GOALS MET. PATIENT IS INDEP WITH A HEP AND HAS ALSO LEARNED WATER EX'S THAT SHE HAS BENEFITED FROM. SHE AMBULATES INDEP'LY INTO PT TODAY WITH GOOD CADANCE AND WITHOUT A LIMP. RANULFO LE STRENGTH AND ROM WFL. Lumbar mvmt loss today: flex - MIN. ext - MOD. R SG - MOD. L SG - MIN. PATIENT DENIES PAIN WITH LUMBAR ROM TESTING. SHE IS APPROPRIATE FOR AND AGREEABLE TO DISCHARGE. PATIENT PLANS TO USE HER [employer] MEMBERSHIP. Goal 1:: DECREASE C/O LOW BACK AND RIGHT LE SX'S Goal Progress: Goal Met Goal 2:: IMPROVE LIFTING, WORK/HOMEMAKING STANDING AND WALKING FUNCTION Goal Progress: Goal Met Goal 3:: INSTRUCT IN PROPHYLAXIS Goal Progress: Goal Met Plan: D/C TO INDEP EX. If there are questions or concerns regarding this patient's physical therapy, please feel free to call me at [phone]. Thank you for the referral of this patient. Sincerely, Merlene Dangelo, PT, Cert MDT Balance/Gait/Functional tests - Balance/Special Test Scores Oswestry Low Back Score: 5
== END 2022-09-07 13:53 | disposition home or self-care (01) ==
LOC: PT 13:30
PROVIDERS: PCP Internal Medicine; Referring Provider Internal Medicine; Visit Provider Internal Medicine
DX: M25.551 Pain in right hip (principal); M79.651 Pain in right thigh
CPT/HCPCS: 97113; 97162; 97164

== ENCOUNTER → 2022-10-30 | Outpatient (CLI) | payer MEDICARE, SELFPAY ==
[2022-10-30 12:06] LABS: Absolute Lymphocyte Count 1.99 X10^3/uL (0.83-4.51); Absolute Neutrophil Count 3.7 X10^3/uL (2.0-7.7); Basophil# 0.07 X10^3/uL; Basophil% 1.1 % (0-1); Eosinophil# 0.22 X10^3/uL; Eosinophils% 3.5 % (0-5); Hematocrit 41.9 % (37-47); Hemoglobin 13.3 g/dL (12.0-15.0); Lymphocyte # 1.99 X10^3/ul (0.83-4.51); Lymphocyte % 31.4 % (19-41); Mean Corp Hgb Conc 31.7 g/dL (32-36); Mean Corpuscular Volume 94.4 fL (81-99); Mean Platelet Vol. 10.4 fl (6.2-12.0); Monocyte# 0.39 X10^3/uL; Monocyte% 6.2 % (0-10); NRBC Flagged by Analyzer 0 % (0-5); Neutrophil # 3.65 X10^3/uL (2.7-7.7); Neutrophil % 57.5 % (47-70); Platelet Count 269 K/mm3 (150-450); RBC Distribution Width CV 12.7 % (11.6-14.6); RBC Distribution Width SD 43.7 fl (35.1-43.9); Red Blood Count 4.44 M/mm3 (4.2-5.4); White Blood Count 6.3 K/mm3 (4.4-11.0)
[2022-10-31 10:30] LABS: Anion Gap 7 (5-15); BUN 24 mg/dL (7-18); BUN/Creat Ratio 33.4 RATIO (10-20); Chloride 107 mmol/L (98-107); Creatinine, Serum 0.72 mg/dL (0.55-1.02); EST Glomerular Filtration Rate 85 mL/min (>60); Est Glom Filt Rate - Afr Amer 103 mL/min (>60); Glucose 84 mg/dL (74-106); Potassium 4.1 mmol/L (3.5-5.1); Sodium Level 143 mmol/L (136-145)
== END | disposition home or self-care (01) ==
LOC: BIMLAB 10:33
PROVIDERS: PCP Internal Medicine; Visit Provider Internal Medicine
DX: I10 Essential (primary) hypertension (principal)
CPT/HCPCS: 36415; 80048; 85025

== ENCOUNTER → 2022-12-20 | Outpatient (CLI) | payer MEDICARE, SELFPAY ==
--- NOTE | 2022-12-20 09:58 | BI_ITS ---
MAMMOGRAPHY - BILATERAL SCREENING REASON FOR EXAM: Female, 67 years old. Routine annual screening examination. PERTINENT HISTORY: Non-contributory. TECHNIQUE: Digital bilateral breast claudia (3D mammographic acquisition) in the CC and MLO projections. 2-D mediolateral oblique (MLO) and craniocaudad (CC) views of both breasts were obtained. CAD: Full Field Digital Mammography with Computer Added Detection was performed. COMPARISON: Comparison is made with prior study of November 29, 2021 and October 28, 2020. FINDINGS: Breast Composition: There are scattered areas of fibroglandular density. There are no dominant masses or suspicious calcifications. Stable small benign-appearing bilateral axillary lymph nodes. No other significant abnormalities are identified. There has been no significant change since the prior study. BI/SCRN MAMM (CAD)W/CLAUDIA BILAT IMPRESSION: Stable bilateral screening mammogram. Yearly follow-up mammogram recommended. (A) ASSESSMENT CATEGORY: BIRADS Category 2: Benign. A letter regarding these results will be sent to the patient by the facility within 30 days. Approximately 10% of breast cancers are not detected by mammography. A normal mammogram should not delay biopsy of a clinically suspicious abnormality. [id number] Electronically Signed: Jey Harding MD at 11:04 EDT ,
--- NOTE | 2022-12-20 10:26 | BD_ITS ---
STUDY: DUAL ENERGY X-RAY ABSORPTIOMETRY / DXA REASON FOR EXAM: Female, 67 years old. Post menopausal TECHNIQUE: Bone Mineral Density (BMD) measurements of lumbar spine and bilateral hips were obtained. COMPARISON: None. FINDINGS: Lumbar Spine (L1-L4): g/cm2 (0.789) / T-score (-2.3) / Z-score (-0.2) Findings are suggestive of osteopenia with a high fracture risk. Left Femur Total: g/cm2 (0.721) / T-score (-1.8) / Z-score (-0.3) Left Femoral Neck: g/cm2 (0.543) / T-score (-2.8) / Z-score (-1.0) Right Femur Total: g/cm2 (0.774) / T-score (-1.4) / Z-score (0.1) Right Femoral Neck: g/cm2 (0.576) / T-score (-2.5) / Z-score (-0.7) BD/Dexa Bone Density Study IMPRESSION: The patient is considered osteoporotic as outlined below according to World [employer] Organization (WHO) criteria with a high fracture risk. Reference Information: The T-score is the number of standard deviations above or below the standard which is normal for young adults at their peak bone mineral density. The World Health Organization (WHO) interprets the T-scores as follows: Above -1 Normal bone density Between -1 and -2.5 Osteopenia Equal to / or below -2.5 Osteoporosis As a practical clinical guideline, osteopenia may be graded as follows: Mild -1 through -1.5 Moderate -1.6 through -2.0 Severe -2.1 through -2.4 The Z-score is the number of standard deviations above or below age-matched controls. A Z-score of less than -1.5 would be considered abnormal. References: 1. NIH Osteoporosis and Related Bone Diseases www osteo.org 2. International Society for Clinical Densitometry www iscd.org 3. National Osteoporosis Foundation www nof.org Electronically Signed: Jey Harding MD at 14:56 EDT ,
== END | disposition home or self-care (01) ==
LOC: OPBD 09:54
PROVIDERS: PCP Internal Medicine; Visit Provider Internal Medicine
DX: Z78.0 Asymptomatic menopausal state (principal); Z12.31 Encounter for screening mammogram for malignant neoplasm of breast
CPT/HCPCS: 77063; 77067; 77080

== ENCOUNTER → 2023-06-11 | Outpatient (CLI) | payer MEDICARE, SELFPAY ==
[2023-06-11 12:46] LABS: Vitamin D,25 Hydroxy 56.7 ng/mL
[2023-06-11 13:08] LABS: AST(SGOT) 28 U/L (15-37); Alanine Aminotransfer ALT/SGPT 37 U/L (13-56); Albumin, Serum 3.7 g/dL (3.2-5.0); Alkaline Phosphatase 67 U/L (45-117); Anion Gap 7 (5-15); BUN 22 mg/dL (7-18); Chloride 108 mmol/L (98-107); Cholesterol 232 mg/dL (200); Creatinine, Serum 0.67 mg/dL (0.55-1.02); EST Glomerular Filtration Rate 93 mL/min (>60); Est Glom Filt Rate - Afr Amer 112 mL/min (>60); Globulin 3.7 g/dL (2.2-4.2); Glucose 70 mg/dL (74-106); High Density Lipoprotein 59 mg/dL; Potassium 3.9 mmol/L (3.5-5.1); Protein, Total 7.4 g/dL (6.4-8.2); Sodium Level 142 mmol/L (136-145); Triglycerides 113 mg/dL; Very Low Density Lipoprotein 23 mg/dL (5-40)
== END | disposition home or self-care (01) ==
LOC: BIMLAB 10:20
PROVIDERS: PCP Internal Medicine; Referring Provider Internal Medicine; Visit Provider Internal Medicine
DX: M81.0 Age-related osteoporosis without current pathological fracture (principal); I10 Essential (primary) hypertension
CPT/HCPCS: 36415; 80053; 80061; 82306

== ENCOUNTER → 2023-09-03 | Outpatient (CLI) | payer MEDICARE, SELFPAY ==
[2023-09-03 13:09] LABS: Cholesterol 213 mg/dL (200); High Density Lipoprotein 60 mg/dL; Triglycerides 100 mg/dL; Very Low Density Lipoprotein 20 mg/dL (5-40)
== END | disposition home or self-care (01) ==
LOC: BIMLAB 10:31
PROVIDERS: PCP Internal Medicine; Referring Provider Internal Medicine; Visit Provider Internal Medicine
DX: E78.5 Hyperlipidemia, unspecified (principal)
CPT/HCPCS: 36415; 80061

== ENCOUNTER 2023-09-27 13:36 | Outpatient (CLI) | payer MEDICARE, SELFPAY ==
[2023-09-27 13:48] VITALS: BP 137/78; PULSE 74; RESP 16; TEMP 36.2; O2SAT 98; BMI 27.1
[2023-09-27] MEDS: Zoledronic Acid 5 MG 100 ML 300 MG IV (14:00)
[2023-09-27] MEDS: 0.9% NaCl Peripheral Flush Adult/Peds IV (14:00)
--- OUTSIDE RECORDS SUMMARY | 2023-09-27 14:01 | XMS RPT_ITS | CCD ---
Author Name Unknown Address [address] [place] [address] Organization [facility] Care Team Providers Care Lead Sustainability Specialist Name Role Phone MARY MOCK Unavailable Unavailable MARY MOCK Unavailable Unavailable BROOKE GARAY (METAL BUGGY OPERATOR) Unavailable Unavailable ELMER VELAZQUEZ Unavailable Unavailable ELMER VELAZQUEZ Unavailable Unavailable Allergies Allergy Classification Reported Allergen(s) Allergy Type Date of Onset Reaction(s) Facility (1 source) Penicillins; Translations: [PENICILLINS] Propensity to adverse reactions to drug (disorder) 4 [facility] Repository (1 source) sertraline; Translations: [SERTRALINE HCL] Drug Allergy 7 [facility] Repository (1 source) traMADol; Translations: [TRAMADOL] Drug Allergy 7 [facility] Repository (1 source) traZODone; Translations: [TRAZODONE] Drug Allergy 8 [facility] Repository Problems Problem Classification Problem Date Documented Da te Episodic/Chronic External Injury - Fall (1 source) Unspecified fall, initial encounter; Translations: [Unspecified fall, initial encounter] Onset: 05-17-2017 Results Test Name Value Interpretation Reference Range Facil ity Encounters Encounter Date Encounter Type Care Provider Facility Start: 06-19-2017 End: 07-09-2017 Ambulatory ELMER VELAZQUEZ [facility] Start: 05-31-2017 End: 06-06-2017 Ambulatory BROOKE (METAL BUGGY OPERATOR) JARROD [facility] Start: 05-17-2017 End: 05-23-2017 Ambulatory MARY MOCK [facility] Summary Purpose Family History No Family History Records Found Advance Directives No Advanced Directives Records Found Additional Source Comments INFORMATION SOURCE (unrecogn ized section and content) FOR RECORDS PERTAINING TO PATIENTS WHO ARE OR HAVE BEEN ENROLLED IN A CHEMICAL DEPENDENCY/SUBSTANCEABUSE PROGRAM, SOME INFORMATION MAY BE OMITTED. This clinical summary was aggregated from multiple sources. Caution should be exercised in using it in the provision of clinical care. This summary normalizes information from multiple sources, and as a consequence, information in this document may materially change the coding, format and clinical context of patient data. In addition, data may be omitted in some cases. CLINICAL DECISIONS SHOULD BE BASED ON THE PRIMARY CLINICAL RECORDS. [facility] provides no warranty or guarantee of the accuracy or completeness of information in this document.
[2023-09-27 14:26] VITALS: BP 130/76; PULSE 65; RESP 16; TEMP 36.1; O2SAT 97
== END 2023-09-27 13:37 | disposition home or self-care (01) ==
LOC: MEDOUTP 13:37
PROVIDERS: PCP Internal Medicine; Referring Provider Internal Medicine; Visit Provider Internal Medicine
DX: M81.0 Age-related osteoporosis without current pathological fracture (principal)
CPT/HCPCS: 96365; A4216; J3489

== ENCOUNTER → 2023-12-27 | Outpatient (CLI) | payer MEDICARE, SELFPAY ==
--- NOTE | 2023-12-27 09:57 | BI_ITS ---
MAMMOGRAPHY - BILATERAL SCREENING REASON FOR EXAM: Female, 68 years old. Routine annual screening examination. PERTINENT HISTORY: Non-contributory. TECHNIQUE: Digital bilateral breast claudia (3D mammographic acquisition) in the CC and MLO projections. 2-D mediolateral oblique (MLO) and craniocaudad (CC) views of both breasts were obtained. CAD: Full Field Digital Mammography with Computer Added Detection was performed. COMPARISON: Comparison is made with prior study December 20, 2022 and November 29, 2021. FINDINGS: Breast Composition: The breasts are almost entirely fatty. There are no dominant masses or suspicious calcifications. Stable small benign-appearing bilateral axillary lymph nodes. No other significant abnormalities are identified. There has been no significant change since the prior study. BI/SCRN MAMM (CAD)W/CLAUDIA BILAT IMPRESSION: Stable bilateral screening mammogram. Yearly follow-up mammogram recommended. (A) ASSESSMENT CATEGORY: BIRADS Category 2: Benign. A letter regarding these results will be sent to the patient by the facility within 30 days. Approximately 10% of breast cancers are not detected by mammography. A normal mammogram should not delay biopsy of a clinically suspicious abnormality. [id number] Electronically Signed: Jey Harding MD at 12:11 EDT ,
== END | disposition home or self-care (01) ==
LOC: OPBI 09:57
PROVIDERS: PCP Internal Medicine; Referring Provider Internal Medicine; Visit Provider Internal Medicine
DX: Z12.31 Encounter for screening mammogram for malignant neoplasm of breast (principal)
CPT/HCPCS: 77063; 77067

== ENCOUNTER → 2024-02-27 | Outpatient (CLI) | payer MEDICARE, SELFPAY ==
[2024-02-27 10:26] LABS: Bacteria 0 SEEN /hpf (None Seen); Mucous, Urine 0 SEEN /hpf (<or=2+); Red Blood Cells-Urine 0 SEEN /hpf (0-5); Squamous Epithelial Cells - UA 0 SEEN /hpf (5-10); White Blood Cells 0 SEEN /hpf (0-5)
[2024-02-27 12:04] LABS: Color, Urine Yellow (Yellow); Glucose, Dipstick Normal (Normal); Ketone-Dipstick 5 mg/dl (Negative); Leukocyte Esterase-Dipstick Negative /ul (Negative); Nitrite-Dipstick Negative (Negative); Occult Blood-Urine Negative /ul (Negative); Protein-Dipstick Negative (Negative); Specific Gravity, Urine 1.015 (1.002-1.030); Urine Bilirubin Dipstick Negative (Negative); Urine Clarity Clear (Clear); Urine Urobilinogen Normal (Normal); Urine pH 6.5 (5.0 - 8.0)
[2024-02-27 12:41] LABS: Absolute Lymphocyte Count 1.91 X10^3/uL (0.83-4.51); Basophil# 0.05 X10^3/uL; Basophil% 0.8 % (0-1); Eosinophil# 0.13 X10^3/uL; Hematocrit 43.9 % (37-47); Hemoglobin 14.4 g/dL (12.0-15.0); Lymphocyte # 1.91 X10^3/ul (0.83-4.51); Lymphocyte % 29.8 % (19-41); Mean Corp Hgb Conc 32.8 g/dL (32-36); Mean Corpuscular Hgb 30.5 pg (27.0-32.0); Mean Platelet Vol. 10.5 fl (6.2-12.0); Monocyte# 0.31 X10^3/uL; Monocyte% 4.8 % (0-10); NRBC Flagged by Analyzer 0 % (0-5); Neutrophil # 3.98 X10^3/uL (2.7-7.7); Neutrophil % 62.1 % (47-70); Platelet Count 284 K/mm3 (150-450); RBC Distribution Width CV 12.5 % (11.6-14.6); RBC Distribution Width SD 42.8 fl (35.1-43.9); Red Blood Count 4.72 M/mm3 (4.2-5.4); White Blood Count 6.4 K/mm3 (4.4-11.0)
[2024-02-27 12:52] LABS: ALB/GLOB Ratio 1.1 RATIO (0.9-2.4); AST(SGOT) 25 U/L (15-37); Alanine Aminotransfer ALT/SGPT 39 U/L (13-56); Alkaline Phosphatase 44 U/L (45-117); Anion Gap 8 (5-15); BUN 19 mg/dL (7-18); BUN/Creat Ratio 26.4 RATIO (10-20); Calcium,Total 9.2 mg/dL (8.5-10.1); Chloride 105 mmol/L (98-107); Cholesterol 253 mg/dL (200); Creatinine, Serum 0.72 mg/dL (0.55-1.02); EST Glomerular Filtration Rate 85 mL/min (>60); Est Glom Filt Rate - Afr Amer 103 mL/min (>60); Globulin 3.7 g/dL (2.2-4.2); Glucose 95 mg/dL (74-106); High Density Lipoprotein 64 mg/dL; Potassium 3.8 mmol/L (3.5-5.1); Protein, Total 7.7 g/dL (6.4-8.2); Sodium Level 140 mmol/L (136-145); Triglycerides 124 mg/dL; Very Low Density Lipoprotein 25 mg/dL (5-40)
== END | disposition home or self-care (01) ==
LOC: BIMLAB 10:15
PROVIDERS: PCP Internal Medicine; Visit Provider Internal Medicine
DX: I10 Essential (primary) hypertension (principal); N39.0 Urinary tract infection, site not specified
CPT/HCPCS: 36415; 80053; 80061; 81001; 85025

== ENCOUNTER → 2024-04-10 | Outpatient (CLI) | payer MEDICARE, SELFPAY ==
[2024-04-10 13:03] LABS: AST(SGOT) 27 U/L (15-37); Alanine Aminotransfer ALT/SGPT 40 U/L (13-56); Albumin, Serum 3.8 g/dL (3.2-5.0); Alkaline Phosphatase 51 U/L (45-117); Anion Gap 7 (5-15); BUN 18 mg/dL (7-18); BUN/Creat Ratio 27.2 RATIO (10-20); Calcium,Total 8.5 mg/dL (8.5-10.1); Chloride 111 mmol/L (98-107); Cholesterol 153 mg/dL (200); Creatinine, Serum 0.66 mg/dL (0.55-1.02); EST Glomerular Filtration Rate 94 mL/min (>60); Est Glom Filt Rate - Afr Amer 113 mL/min (>60); Globulin 3.7 g/dL (2.2-4.2); Glucose 91 mg/dL (74-106); High Density Lipoprotein 64 mg/dL; Potassium 3.7 mmol/L (3.5-5.1); Protein, Total 7.5 g/dL (6.4-8.2); Sodium Level 142 mmol/L (136-145); Triglycerides 81 mg/dL; Very Low Density Lipoprotein 16 mg/dL (5-40)
== END | disposition home or self-care (01) ==
LOC: BIMLAB 08:51
PROVIDERS: PCP Internal Medicine; Referring Provider Internal Medicine; Visit Provider Internal Medicine
DX: E78.5 Hyperlipidemia, unspecified (principal)
CPT/HCPCS: 36415; 80053; 80061

== ENCOUNTER → 2024-09-29 | Outpatient (CLI) | payer MEDICARE, SELFPAY ==
[2024-09-29 13:12] LABS: ALB/GLOB Ratio 1.1 RATIO (0.9-2.4); AST(SGOT) 23 U/L (15-37); Alanine Aminotransfer ALT/SGPT 45 U/L (13-56); Albumin, Serum 3.7 g/dL (3.2-5.0); Alkaline Phosphatase 58 U/L (45-117); Anion Gap 3 (5-15); BUN 21 mg/dL (7-18); BUN/Creat Ratio 28.5 RATIO (10-20); Calcium,Total 8.8 mg/dL (8.5-10.1); Chloride 112 mmol/L (98-107); Cholesterol 172 mg/dL (200); Creatinine, Serum 0.74 mg/dL (0.55-1.02); EST Glomerular Filtration Rate 83 mL/min (>60); Est Glom Filt Rate - Afr Amer 100 mL/min (>60); Globulin 3.5 g/dL (2.2-4.2); Glucose 77 mg/dL (74-106); High Density Lipoprotein 66 mg/dL; Potassium 3.9 mmol/L (3.5-5.1); Protein, Total 7.2 g/dL (6.4-8.2); Sodium Level 142 mmol/L (136-145); Triglycerides 93 mg/dL; Very Low Density Lipoprotein 19 mg/dL (5-40)
== END | disposition home or self-care (01) ==
LOC: BIMLAB 11:11
PROVIDERS: PCP Internal Medicine; Referring Provider Internal Medicine; Visit Provider Internal Medicine
DX: E78.5 Hyperlipidemia, unspecified (principal)
CPT/HCPCS: 36415; 80053; 80061

== ENCOUNTER → 2024-11-13 | Outpatient (CLI) | payer MEDICARE, SELFPAY ==
--- NOTE | 2024-11-13 16:00 | RAD_ITS ---
PROCEDURE: CERV SPINE 2 OR 3 VIEWS REASON FOR EXAM: Neck pain. TECHNIQUE: 3 views of the cervical spine. COMPARISON: None. FINDINGS: Cervical vertebral bodies are seen to the upper thoracic level on the sagittal view. Cervical vertebral bodies maintain a normal height. There is mild levocurvature of the cervical spine. There is minimal disc space narrowing from C4-C7. No acute fracture or subluxation is identified. Atlantodental interval is intact. Odontoid process is intact. Lateral masses align. Prevertebral soft tissues are unremarkable. RAD/Cerv Spine 2 or 3 Views IMPRESSION: 1. No acute osseous abnormality. 2. Mild degenerative changes. Reading Location: [facility]
== END | disposition home or self-care (01) ==
LOC: MTRAD 15:59
PROVIDERS: PCP Internal Medicine; Referring Provider Physician Assistant; Visit Provider Physician Assistant
DX: M54.2 Cervicalgia (principal)
CPT/HCPCS: 72040

== ENCOUNTER → 2024-12-24 | Outpatient (CLI) | payer MEDICARE, SELFPAY ==
[2024-12-24 13:14] LABS: Anion Gap 12 (5-15); BUN 17 mg/dL (4-19); Calcium,Total 9.5 mg/dL (7.6-11.0); Carbon Dioxide 25.2 mmol/L (21.0-32.0); Chloride 105 mmol/L (98-108); Cholesterol 187 mg/dL (<=200); Creatinine, Serum 0.74 mg/dL (0.70-1.20); EST Glomerular Filtration Rate 87 (>60); Glucose 78 mg/dL (70-99); High Density Lipoprotein 63 mg/dL; Low Density Lipoprotein Calc. 91 mg/dL; Potassium 4.2 mmol/L (3.3-5.1); Sodium Level 142 mmol/L (133-145); Triglycerides 165 mg/dL; Very Low Density Lipoprotein 33 mg/dL (5-40); cholesterol:hdl ratio screen 2.97
== END | disposition home or self-care (01) ==
LOC: BIMLAB 11:02
PROVIDERS: PCP Internal Medicine; Referring Provider Internal Medicine; Visit Provider Internal Medicine
DX: I10 Essential (primary) hypertension (principal); E78.5 Hyperlipidemia, unspecified
CPT/HCPCS: 36415; 80048; 80061

== ENCOUNTER → 2025-01-29 | Outpatient (CLI) | payer MEDICARE, SELFPAY ==
--- NOTE | 2025-01-29 10:12 | BI_ITS ---
EXAM: SCRN MAMM (CAD)W/CLAUDIA BILAT DATE: 01/29/2025 CLINICAL HISTORY: F, Age 69 y/o , BREAST CANCER SCREENING BREAST CANCER RISK ASSESSMENT: Has not been calculated. TECHNIQUE: Bilateral screening digital breast tomosynthesis with 2D and 3D images. Computer aided detection. COMPARISON: Prior exam(s) dated 12/27/2023 and 12/20/2022. FINDINGS: TISSUE DENSITY: The breast tissue is almost entirely fatty. Bilateral Breast Mammographic Findings: There are no suspicious masses, suspicious clustered microcalcifications, architectural distortion or secondary signs of malignancy identified in either breast. Benign-appearing round microcalcifications are seen in both breast. BI/SCRN MAMM (CAD)W/CLAUDIA BILAT IMPRESSION: OVERALL FINAL ASSESSMENT: BIRADS 2 BENIGN FINDING RECOMMENDATION: Routine annual follow-up in 1 Year A letter with findings and recommendations will be mailed to the patient. Reading Location: [id number]
== END | disposition home or self-care (01) ==
PROVIDERS: PCP Internal Medicine; Referring Provider Internal Medicine; Visit Provider Internal Medicine
DX: Z12.31 Encounter for screening mammogram for malignant neoplasm of breast (principal)
CPT/HCPCS: 77063; 77067

== ENCOUNTER 2025-03-09 12:30 | Outpatient (RCR) | payer MEDICARE, SELFPAY ==
--- NOTE | 2025-01-05 10:45 | HP.PTEVAL ---
Patient's Visit Information Visit Information Visit Information: SONAL WILKES is a 69 year old F referred to Physical Therapy by Dr. Kranthi Kramer MD with a diagnosis of vertigo. Date of Evaluation: 01/05/25 Physical Therapist: Geoff Perez, ADIELT, OCS, CSCS Visit Plan Frequency: 2x /Week Duration: 4-6 Weeks Plan: 2x/week for 3-6 weeks for... 1. STM, MH and manual therapy for PROM cervical and teach home stretches/strengthening of neck and posture to I. 2. progress Adaptation ex as HEP, [place] ex. IE HEP: VOR 60 sec 6x/day seated. Care with balance and effects of stress and fatigue on dizzyness and need to manage. Subjective Subjective: Started getting dizzy about a month correlating with neck stiffness. Dizzy is described as having to sit when she wakes in am and gets up, has to hold tran. Unsteady until she sits. No spinning. Holding on she is OK. This was no problem. No problem Sitting is always OK. m lying down or rolling. Doctor gave her meds which she is not sure if it helps. Neck hurts also and is 8/10 intermittently and worse and not sure why. X ray was OK. No arm symptoms Sleep is OK but worse lately due to stress from being sick and pnumonia and in hopsital. Retired. Spends day cleaning house and taking care of house. Can do this . Has TM and she walks in the am. Basic ADLS are all I. Steps at home and has to be careful with knee OA. Pain neck: Pain Intensity (Out of 10): 6 Pain Intensity Range: 0 and 8 Objective Objective: Walks slowly but I back to PT, flat affect and seemingly stressed. Transfers I. steps with railing reciprocally. cervical aROM 45 ext adn 45 B rotations feeling stiff and sore. Tender to palpation throughout pericervical soft tissue. - c/s compression. UE AROM WFL and reflexes bi and tri 2/3, sensation WNL to gross light touch in UE. - B hallpike matt - roll test. Oculomotor: no nystagmus with gaze or head shake No positions exceot up from HD make her dizzy - skew eye deviation(hard time following these instructions.) - ocular tilt. - had thrust. normal purusuit and saccades without symptoms. VOR gives slight symptoms 30 sec H 3/10 for a few seconds. Balance/Special Test Scores Functional Gait Assessment Score: 23 % Disability: 23.3400 CATSIB Score (Max score 120 seconds): 105 Dizziness Score: 50 Goals Goal 1:: abolish dizzy feeling in am Goal Time Frame: 4-6 Weeks Goal 2:: FGA 26/30 Goal Time Frame: 4-6 Weeks Goal 3:: Neck pain 50% better and 3/10 at worst and manageable Goal Time Frame: 4-6 Weeks Goal 4:: DHI score 20 or better Goal Time Frame: 4-6 Weeks Goal 5:: I appropriate management of condition Goal Time Frame: 4-6 Weeks Rehabilitation Potential Physical Therapy Diagnosis: imbalance, neck pain and dizzy feeling. Rehabilitation Potential: Fair Anticipated Interventions Patient/Client Instruction: Educate patient on: Condition and Plan of Care For the Purpose of:: To decrease pain, To increase ROM, To improve muscle performance and motor function, To increase tolerance to activity/condition/position, To improve ability of physical actions for home/community/work/leisure and To improve gait and locomotor functions Therapeutic Exercise to Include: Strength training, Flexibilty training, Passive ROM and Active ROM Comment: adaptation progression. For the Purpose of:: To decrease pain, To increase ROM, To improve nutrient delivery to tissue, To improve muscle performance and motor function and To increase tolerance to activity/condition/position Manual Therapy Techniques to Include: Mobilization, Passive ROM and Soft tissue mobilization For the Purpose of:: To decrease pain, To increase ROM, To improve nutrient delivery to tissue, To increase tolerance to activity/condition/position and To improve ability of physical actions for home/community/work/leisure Thermo therapy (hot pack): Yes For the Purpose of:: To increase ROM and To improve nutrient delivery to tissue Text: Thank you for the opportunity to evaluate your patient. For Medicare and Medicare HMO plans, please review the plan of care and approve it. It will need to be FAXED BACK to us at [phone] for Medicare purposes. For Medicare only, by signing this I certify the plan of care. Please let me know if there are questions or concerns regarding this plan of care. Physician Signature: Date:
--- NOTE | 2025-02-18 11:24 | HP.PTREVAL ---
Re-Evaluation Intro: Dr. Kranthi Kramer MD, It has been my pleasure to treat SONAL WILKES over the last 10 visits for vertigo. Please see the progress note below for an update on the physical therapy plan of care! Subjective Subjective: Dizzyness is gone, none in a while. Neck still hurts if she moves funny. Balance is Ok too. neck pain continues when she lies on L side. During day normally it is pretty good. HEP : good for neck, stopped dizzy. To doctor in end of March. Dizzyneess 100%, neck 50% Objective Objective/Function: L rot 55 with pain and R is 65 without pain, extension is 50 without pain. FGA much b shawn and no dizzyneess with position changes today. Dizzyneess much better and abolished, balance back to normal, Neck improving but still weeak and limited in L rotation. Limited visits have effected this and is appropriate to finish original POC over the next 2-3 week as her is doing better now. Same goals adding full L rotation without pain to turn head in car without wincing. fair prognosis. Plan Plan Plan: 2x/week x 5 more visits. Please do L rotation mobs, PROM and upper cervical mobs Please do upper hald postural cervical strngth and progress to home band exercises (I started this today) Balance/Gait/Functional tests Balance/Special Test Scores Functional Gait Assessment Score: 29 % Disability: 3.3400 CATSIB Score (Max score 120 seconds): 105 Dizziness Score: 10 Goals Goals Goal 1:: abolish dizzy feeling in am Goal Time Frame: 4-6 Weeks Goal Progress: Goal Met Goal 2:: FGA / Goal Time Frame: 4-6 Weeks Goal Progress: Goal Met Goal 3:: Neck pain 50% better and 3/10 at worst and manageable Goal Time Frame: 4-6 Weeks Goal Progress: Goal Met Goal 4:: DHI score 20 or better Goal Time Frame: 4-6 Weeks Goal Progress: Goal Met Goal 5:: I appropriate management of condition Goal Time Frame: 4-6 Weeks Goal Progress: needs strength Goal 6:: rotate head L without pain to turn head in car without wincing. Goal Time Frame: 2-4 Weeks Goal Progress: NEW GOAL Anticipated Interventions Anticipated Interventions Patient/Client Instruction: Educate patient on: Condition and Plan of Care For the Purpose of:: To decrease pain, To increase ROM, To improve muscle performance and motor function, To increase tolerance to activity/condition/position, To improve ability of physical actions for home/community/work/leisure and To improve gait and locomotor functions Therapeutic Exercise to Include: Strength training, Flexibilty training, Passive ROM and Active ROM Comment: adaptation progression. For the Purpose of:: To decrease pain, To increase ROM, To improve nutrient delivery to tissue, To improve muscle performance and motor function and To increase tolerance to activity/condition/position Manual Therapy Techniques to Include: Mobilization, Passive ROM and Soft tissue mobilization For the Purpose of:: To decrease pain, To increase ROM, To improve nutrient delivery to tissue, To increase tolerance to activity/condition/position and To improve ability of physical actions for home/community/work/leisure Thermo therapy (hot pack): Yes For the Purpose of:: To increase ROM and To improve nutrient delivery to tissue Re-Evaluation Ending Re-evaluation ending: Please do not hesitate to contact me at [phone] by phone or if you have questions or concerns regarding this new plan of care! Sincerely, Geoff Perez, DPT, OCS, CSCS
--- NOTE | 2025-03-09 13:10 | HP.PTDCSUM ---
Discharge Summary D/C summary: It has been my pleasure to treat SONAL WILKES referred by Dr. Kranthi Kramer MD, with the diagnosis of vertigo for a total of 15 visit(s). Discharge Date: 03/09/25 Please see the following information for a summary of their discharge status. Subjective Subjective: L rotation still feels limited but not painful. Turning better in the car. Pain is not bad , up to 3/10 with rotating L only. Sleep is OK. No spinning lately. Activities are pretty normal. To Dr. Kramer next month. Pain neck: Pain Intensity (Out of 10): 3 Overall Improvement % Improvement: 90 Objective Objective/Function: 65 R rotation, 62 L rotation, 65 ext, n pain. No wincing. - c/s comrpession. No spinning or pain today. Goals Goal 1:: abolish dizzy feeling in am Goal Progress: Goal Met Goal 2:: FGA Goal Progress: Goal Met Goal 3:: Neck pain 50% better and 3/10 at worst and manageable Goal Progress: Goal Met Goal 4:: DHI score 20 or better Goal Progress: Goal Met Goal 5:: I appropriate management of condition Goal Progress: Goal Met Goal 6:: rotate head L without pain to turn head in car without wincing. Goal Progress: Goal Met Plan Plan: d/c to HEP D/C Information d/c sentence: If there are questions or concerns regarding this patient's physical therapy, please feel free to call me at [phone]. Thank you for the referral of this patient. Sincerely, Geoff Perez, DPT, OCS, CSCS Balance/Gait/Functional tests Balance/Special Test Scores Functional Gait Assessment Score: 29 % Disability: 3.3400 CATSIB Score (Max score 120 seconds): 105 Dizziness Score: 0 Improvement % Improvement: 90
== END 2025-03-09 14:11 | disposition home or self-care (01) ==
LOC: PT 12:30
PROVIDERS: PCP Internal Medicine; Referring Provider Internal Medicine; Visit Provider Internal Medicine
DX: R42 Dizziness and giddiness (principal)
CPT/HCPCS: 97110; 97140; 97163; 97530

== ENCOUNTER → 2025-06-04 | Outpatient (CLI) | payer MEDICARE, SELFPAY ==
--- NOTE | 2025-06-04 15:53 | RAD_ITS ---
PROCEDURE: SHOULDER MIN 2 VIEWS 06/04/2025 REASON FOR EXAM: LEFT SHOULDER PAIN TECHNIQUE: Procedure Code: RADSH Modality: DX Procedure: SHOULDER MIN 2 VIEWS Laterality: Left COMPARISON: None FINDINGS: Mild acromioclavicular and glenohumeral joint space narrowing. No acute fracture or dislocation. Adjacent ribs and lung are unremarkable. RAD/Shoulder min 2 Views IMPRESSION: Mild degenerative change without acute bony abnormality. Reading [facility]
[2025-06-04 16:58] LABS: AST(SGOT) 30 U/L (<=31); Alanine Aminotransfer ALT/SGPT 36 U/L (<=34); Albumin, Serum 4.2 g/dL (3.4-4.8); Alkaline Phosphatase 54 U/L (35-104); Anion Gap 12 (5-15); BUN 19 mg/dL (4-19); BUN/Creat Ratio 22.8 RATIO (10-20); Calcium,Total 9.4 mg/dL (7.6-11.0); Carbon Dioxide 24.5 mmol/L (21.0-32.0); Chloride 106 mmol/L (98-108); Globulin 2.8 g/dL (2.2-4.2); Glucose 84 mg/dL (70-99); Potassium 4.1 mmol/L (3.3-5.1)
[2025-06-04 17:09] LABS: Hematocrit 40.1 % (37-47); Hemoglobin 13.2 g/dL (12.0-15.0); Immature Granulocytes Count 0.020 X10^3/uL (0.0-0.0); Mean Corp Hgb Conc 32.9 g/dL (32-36); Mean Corpuscular Volume 92.8 fL (81-99); Mean Platelet Vol. 10.6 fl (6.2-12.0); NRBC Flagged by Analyzer 0 % (0-5); Platelet Count 241 K/mm3 (150-450); RBC Distribution Width CV 12.7 % (11.6-14.6); RBC Distribution Width SD 43.6 fl (35.1-43.9); Red Blood Count 4.32 M/mm3 (4.2-5.4); White Blood Count 6.9 K/mm3 (4.4-11.0)
--- OUTSIDE RECORDS SUMMARY | 2025-06-04 21:30 | XMS RPT_ITS | CCD ---
Author Organization [facility] Care Team Providers Care Director Of Digital Technology Name Role Phone MARY MOCK Unavailable Unavailable MARY MOCK Unavailable Unavailable BROOKE GOLDSTEIN (REGULATORY ATTORNEY) Unavailable Unavailable GANTA, ELMER Unavailable Unavailable GANTA, ELMER Unavailable Unavailable Dr. Kranthi Kramer Primary Care Provider [phone] Dr. Kranthi Kramer Referring Provider [phone] Seth MASH FILTER OPERATOR, MASH FILTER OPERATOR-C Mariela Attending Provider Dr. Kranthi Kramer Attending Provider [phone] Dr. Kranthi Kramer Primary Care Provider [phone] Dr. Kranthi Kramer Referring Provider [phone] Dr. Aly House Attending Provider Dr. Kranthi Kramer Attending Provider [phone] Seth MASH FILTER OPERATOR, MASH FILTER OPERATOR-C Mariela Attending Provider [phone] Dr. Kranthi Kramer Primary Care Provider [phone]) Dr. Kranthi Kramer Referring Provider [phone] Dr. Aly House Attending Provider Dr. Kranthi Kramer Attending Provider [phone] Dr. Luis Benitez Attending Provider [phone] Kranthi Kramer Primary Care Provider [phone] Dr. Kranthi Kramer Referring Provider [phone] Dr. Aly House Attending Provider Dr. Kranthi Kramer Attending Provider [phone] Dr. Luis Benitez Attending Provider [phone] Dr. Kranthi Kramer Primary Care Provider [phone] Williams, Dr. Crisostomo Attending Provider [phone] Williams, Dr. Crisostomo Referring Provider [phone] Dr. Luis Benitez Attending Provider [phone] Dr. Abran Bearden Attending Provider [phone] Williams, Dr. Crisostomo Primary Care Provider [phone] 0) Williams, Dr. Crisostomo Attending Provider [phone] Williams, Dr. Crisostomo Referring Provider [phone] Williams, Dr. Crisostomo Primary Care Provider [phone] 0) Williams, Dr. Crisostomo Attending Provider [phone])2 Williams, Dr. Crisostomo Referring Provider [phone] Seth MASH FILTER OPERATOR, MASH FILTER OPERATOR-C Mariela Attending Provider Dr. Kranthi Kramer Primary Care Provider [phone] [phone]) Dr. Kranthi Kramer Attending Provider [phone] Williams, Dr. Crisostomo Referring Provider [phone] Dr. Kranthi Kramer MD Primary Care Provider [facility], Dr. Crisostomo Attending Provider [phone] [phone]) [facility], Dr. Crisostomo Referring Provider [phone] 0) Robe Nichols Attending Provider [phone] Robe Nichols Referring Provider [phone] Williams [facility], Dr. Crisostomo Primary Care Provider [facility], Dr. Crisostomo Referring Provider [phone] 0) [facility], Dr. Crisostomo Attending Provider [phone] [facility], Dr. Crisostomo Primary Care Provider [facility], Dr. Crisostomo Referring Provider [phone] Oleghe, Efewongbe Referring Unavailable Oleghe, Efewongbe Primary Care Unavailable Robe Nichols Attending Unavailable Oleghe, Efewongbe Attending Unavailable Oleghe, Efewongbe Primary Care Unavailable Oleghe, Efewongbe Referring Unavailable Oleghe, Efewongbe Primary Care Unavailable Wayt PA, Robe Referring Unavailable Wayjayce PARobe Attending Unavailable Oleghe, Efewongbe Attending Unavailable Oleghe, Efewongbe Referring Unavailable Oleghe, Efewongbe Primary Care Unavailable Oleghe, Efewongbe Attending Unavailable Oleghe, Efewongbe Primary Care Unavailable Oleghe, Efewongbe Referring Unavailable Oleghe, Efewongbe Attending Unavailable Oleghe, Efewongbe Primary Care Unavailable Oleghe, Efewongbe Referring Unavailable Oleghe, Efewongbe Attending Unavailable Oleghe, Efewongbe Primary Care Unavailable Oleghe, Efewongbe Referring Unavailable Oleghe, Efewongbe Primary Care Unavailable Oleghe, Efewongbe Referring Unavailable Mariela Ann NP Attending Unavailable Oleghe, Efewongbe Attending Unavailable Oleghe, Efewongbe Primary Care Unavailable Oleghe, Efewongbe Referring Unavailable Oleghe, Efewongbe Referring Unavailable Oleghe, Efewongbe Attending Unavailable Oleghe, Efewongbe Primary Care Unavailable Oleghe, Efewongbe Attending Unavailable Oleghe, Efewongbe Referring Unavailable Oleghe, Efewongbe Primary Care Unavailable Oleghe, Efewongbe Attending Unavailable Oleghe, Efewongbe Primary Care Unavailable Oleghe, Efewongbe Referring Unavailable Oleghe, Efewongbe Attending Unavailable Oleghe, Efewongbe Referring Unavailable Oleghe, Efewongbe Primary Care Unavailable [facility], Dr. Crisostomo Primary Care Provider [facility], Dr. Crisostomo Attending Provider [phone] Dr. Kranthi Kramer MD Referring Provider Allergies Allergy Classification Reported Allergen(s) Allergy Type Date of Onset Reaction(s) Facility (18 sources) Penicillins; Translations: [PENICILLINS] Propensity to adverse reactions to drug (disorder) 4 [facility] Repository (1 source) sertraline; Translations: [SERTRALINE HCL] Drug Allergy 7 [facility] Repository (1 source) traMADol; Translations: [TRAMADOL] Drug Allergy 7 [facility] Repository (1 source) traZODone; Translations: [TRAZODONE] Drug Allergy 8 [facility] Repository (16 sources) Acetaminophen Drug Allergy 2 [facility] (17 sources) HYDROcodone; Translations: [hydrocodone bitartrate] Drug Allergy 2 [facility] (16 sources) rOPINIRole Drug Allergy 2 [facility] (1 source) Acetaminophen Drug Allergy 5 [facility] Repository (1 source) rOPINIRole Drug Allergy 5 [facility] Repository Medications Current Medications Medication Drug Class(es) Dates Sig (Normalized) Sig (Original) Arm Brace (Elbow Compression Sleeve) misc (11 sources) Start: 11-23-2022 Arm Brace (Elbow Compression Sleeve) misc Active 0 .Route 1 November 23, 2022 1:00am As directed Start: 11-23-2022 Arm Brace (Elb ow Compression Sleeve) misc Active 0 .Route November 23, 2022 12:00am As directed Start: 11-23-2022 Arm Brace (Elb ow Compression Sleeve) misc Active 0 .Route November 23, 2022 1:00am As directed atorvastatin 10 mg oral tablet (20 sources) HMG-CoA Reductase Inhibitor Start: 12-24-2024 take 1 tablet by mouth once daily Atorvastatin 10 mg tablet Active 10 mg PO DAILY December 24, 2024 10:09pm Start: 09-29-2024 End: 12-24-2024 take 10 mg by mouth once daily Atorvastatin 20 mg tabl et Discontinued 10 mg PO DAILY September 29, 2024 12:04pm December 24, 2024 10:10pm Start: 09-29-2024 End: 09-29-2024 take 5 mg by mouth once daily Atorvastatin 10 mg table t Discontinued 5 mg PO DAILY September 29, 2024 11:43am September 29, 2024 12:05pm Start: 08-18-2024 End: 09-29-2024 take 1 tablet by mouth once daily Atorvastatin 10 mg tablet Discontinued 10 mg PO DAILY August 18, 2024 5:52pm September 29, 2024 11:43am Start: 08-18-2024 End: 08-18-2024 take 2 tablets by mouth once daily Atorvastatin 10 mg tablet Discontinued 20 mg PO DAILY August 18, 2024 5:52pm August 18, 2024 5:53pm Start: 02-28-2024 End: 08-18-2024 take 1 tablet by mouth once daily Atorvastatin 20 mg tablet Discontinued 20 mg PO DAILY June 19, 2024 8:31am August 18, 2024 5:52pm cetirizine hydrochloride 10 mg oral tablet (20 sources) Histamine-1 Receptor Antagonist Start: 06-23-2020 End: 02-15-2021 Cetirizine (24hour Allergy) 10 mg tablet Active 5 mg PO DAILY as needed for allergy symptoms 28 12February 15, 2021 11:42am Mervat.Stocking,Thigh,R eg,Med (10 sources) Start: 09-07-2020 Mervat.Stocki ng,Thi gh,Reg,Med Active 0 .ROUTE .MEDSUPPLY September 07, 2020 9:40am As directed Start: 09-07-2020 Mervat.Stocki ng,Thigh,Reg,Med Active 0 .ROUTE .MEDSUPPLY September 07, 2020 12:00am As directed Start: 09-07-2020 Mervat.Stocki ng,Thigh,Reg,Med Active 0 .ROUTE .MEDSUPPLY September 07, 2020 1:00am As directed Mervat.Stocking,Thigh,Reg,M ed misc (6 sources) Start: 09-07-2020 Mervat.Stocking,Thigh,Reg,M ed misc Active 0 .ROUTE .MEDSUPPLY 2 September 07, 2020 1:00am Varicose veins of bilateral lower extremities with pain As directed Start: 09-07-2020 Mervat.Stocki ng,Thigh,Reg,Med misc Active 0 .ROUTE .MEDSUPPLY 2 September 07, 2020 1:00am As directed furosemide 20 mg oral tablet (2 sources) Loop Diuretic Start: 04-02-2025 take 1 tablet by mouth every other day as needed for edema Furosemide (Lasix) 20 mg tablet Active 20 mg PO every other day as needed for edema 10 0 April 02, 2025 12:00am glusana (16 sources) Start: 10-13-2019 glusana Active PO October 13, 2019 10:40am Start: 10-13-2019 End: 01-31-2023 glusana Discontinued PO 0 Ja nuary 2019 1:00am January 31, 2023 9:48am Start: 10-13-2019 End: 01-31-2023 glusana Discontinued PO Dionicio belkis 2019 12:00am January 31, 2023 8:48am Start: 10-13-2019 End: 01-31-2023 glusana Discontinued PO Dionicio belkis 2019 1:00am January 31, 2023 9:48am Start: 10-13-2019 glusana Active PO October 13, 2019 12:00am Start: 10-13-2019 glusana Active PO October 13, 2019 1:00am Handicap Placard (20 sources) Start: 12-09-[address] Active 0 .ROUTE .MEDSUPPLY 1 0 December 09, 2024 5:50pm Other reduced mobility As directed, length of time 3 years Start: 12-09-[address] Active 0 .ROUTE .MEDSUPPLY 1 December 09, 2024 5:50pm As directed, length of time 3 years Start: 01-25-2022 End: 12-09-2024 Handicap Placard Discontinue d 0 .ROUTE .MEDSUPPLY 1 0 January 25, 2022 12:00am December 09, 2024 5:50pm Other reduced mobility As directed, length of time 3 years Start: 01-25-2022 End: 12-09-2024 Handicap Placard Discontinue d 0 .ROUTE .MEDSUPPLY 1 January 25, 2022 12:00am December 09, 2024 5:50pm As directed, length of time 3 years Start: 01-25-[address] Active 0 .ROUTE .MEDSUPPLY January 24, 2022 11:00pm As directed, length of time 3 years Start: 01-25-[address] Active 0 .ROUTE .MEDSUPPLY January 25, 2022 12:00am As directed, length of time 3 years hydrocortisone 25 mg/ml topical cream (2 sources) Corticosteroid Start: 04-02-2025 End: 06-04-2025 Hydrocortisone 2.5 % cream Active 1 NMA TOPICAL TWICE A DAY as needed for itching 453.6 June 04, 2025 2:49pm meclizine hydrochloride 25 mg oral tablet (6 sources) Antiemetic Start: 12-24-2024 take 1 tablet by mouth twice daily as needed for dizziness Meclizine 25 mg tablet Active 25 mg PO TWICE A DAY as needed for dizziness 30 December 24, 2024 12:00am 24 hr metoprolol succinate 50 mg extended release oral tablet (20 sources) beta-Adrenergic Valorie Start: 12-25-2017 End: 04-08-2025 take 1 tablet by mouth once daily Metoprolol Succinate 50 mg tablet extended release 24 hr Active 50 mg PO daily 90 April 08, 2025 8:12am Start: 01-26-2014 End: 12-25-2017 take 1 tablet by mouth once daily Metoprolol Tartrate 50 MG tablet Discontinued 50 mg PO DAILY January 26, 2014 12:00am December 25, 2017 2:01pm Mm-Qw-Jdua-Fa-Ca Carb-Vit K (Women's Multivitamin) 18 mg-400 mcg- 500 mg-50 mcg tablet (6 sources) Start: 11-13-2024 Pj-Fg-Fqyb-Fa- Ca Carb-Vit K (Women's Multivitamin) 18 mg-400 mcg- 500 mg-50 mcg tablet Active {tbl} PO November 13, 2024 1:00am 100 ml zoledronic acid 0.05 mg/ml injection (8 sources) Bisphosphonate Start: 09-10-2023 Zoledronic Btma-Fbfvtbfs-Rfhyd 5 mg/100 mL piggyback Active 1 NMA .Route .yearly 100 1 September 10, 2023 1:00am 5 mg Yearly Completed/Discontinued Medications Medication Drug Class(es) Dates Sig (Normalized) Sig (Original) antioxidant (16 sources) Start: 11-13-2017 End: 07-24-2019 antioxidant Discontinued PO November 13, 2017 11:13am July 24, 2019 11:24am Start: 11-13-2017 End: 07-24-2019 antioxidant Discontinued PO 0 November 13, 2017 1:00am July 24, 2019 11:24am Start: 11-13-2017 End: 07-24-2019 antioxidant Discontinued PO November 13, 2017 12:00am July 24, 2019 10:24am Start: 11-13-2017 End: 07-24-2019 antioxidant Discontinued PO November 13, 2017 1:00am July 24, 2019 11:24am ascorbic acid 500 mg oral capsule (16 sources) Vitamin C Start: 10-13-2019 End: 11-13-2024 take 1 capsule by mouth once daily Ascorbic Acid (Vitamin C) 500 mg capsule Discontinued 500 mg PO DAILY October 13, 2019 1:00am November 13, 2024 3:46pm Start: 10-13-2019 Ascorbic Acid (Vitamin C) Active MG PO October 13, 2019 12:00am aspirin 81 mg delayed release oral tablet (20 sources) Platelet Aggregation Inhibitor, Nonsteroidal Anti-inflammatory Drug Start: 10-13-2019 End: 01-31-2023 take 1 tablet by mouth once daily Aspirin 81 mg tablet,delayed release (DR/EC) Discontinued 81 mg PO DAILY October 13, 2019 1:00am January 31, 2023 10:07am Start: 01-26-2014 End: 07-24-2019 take 1 tablet by mouth once daily Aspirin 81 MG tablet,chewable Discontinued 81 mg PO DAILY@0800 January 26, 2014 12:00am July 24, 2019 11:24am baclofen 10 mg oral tablet (20 sources) gamma-Aminobutyric Acid-ergic Agonist Start: 01-07-2021 End: 01-25-2022 take 1 tablet by mouth at bedtime as needed for pain Baclofen 10 mg tablet Discontinued 10 mg PO AT BEDTIME as needed for muscle pain 60 July 08, 2021 11:21am January 25, 2022 9:12am benzonatate 100 mg oral capsule (16 sources) Non-narcotic Antitussive Start: 02-15-2021 End: 04-08-2021 take 1 capsule by mouth twice daily as needed for cough Benzonatate (Tessalon Perles) 100 mg capsule Discontinued 100 mg PO TWICE A DAY as needed for cough 14 February 15, 2021 12:00am April 08, 2021 11:01am Ca Carb-D3-Mag Rt-Hzi-Ovir-Zn (Caltrate + D3 Plus Minerals) 300 mg-800 unit -25 mg-0.5 mg tablet (12 sources) Start: 11-26-2017 End: 07-24-2019 take 1 tablet by mouth twice daily Ca Carb-D3-Mag Pc-Crh-Crgm-Zn (Caltrate + D3 Plus Minerals) 300 mg-800 unit -25 mg-0.5 mg tablet Discontinued 1 TABLET PO TWICE A DAY November 26, 2017 9:02am July 24, 2019 10:24am Start: 11-26-2017 End: 07-24-2019 take 1 tablet by mouth twice daily Ca Carb-D3-Mag Iw-Kje-Cmcw-Zn (Caltrate + D3 Plus Minerals) 300 mg-800 unit -25 mg-0.5 mg tablet Discontinued 1 TABLET PO TWICE A DAY November 26, 2017 10:02am July 24, 2019 11:24am Start: 11-13-2017 End: 11-26-2017 take 1 tablet by mouth once Ca Carb-D3-Mag Ox-Log Yard Derrick Operator-Ashu -Zn (Caltrate + D3 Plus Minerals) 300 mg-800 unit -25 mg-0.5 mg tablet Discontinued 1 TABLET PO ONCE November 13, 2017 11:14am November 26, 2017 10:02am Start: 11-13-2017 End: 11-26-2017 take 1 tablet by mouth once Ca Carb-D3-Mag Ox-Log Yard Derrick Operator-Ashu -Zn (Caltrate + D3 Plus Minerals) 300 mg-800 unit -25 mg-0.5 mg tablet Discontinued 1 TABLET PO ONCE November 13, 2017 12:00am November 26, 2017 9:02am Start: 11-13-2017 End: 11-26-2017 take 1 tablet by mouth once Ca Carb-D3-Mag Ox-Log Yard Derrick Operator-Ashu -Zn (Caltrate + D3 Plus Minerals) 300 mg-800 unit -25 mg-0.5 mg tablet Discontinued 1 TABLET PO ONCE November 13, 2017 1:00am November 26, 2017 10:02am Ca Carb-D3-Mag Hh-Lmt-Ouex-Zn (Caltrate-D3 Plus Minerals) 300 mg-800 unit -25 mg-0.5 mg tablet (20 sources) Start: 11-26-2017 End: 07-24-2019 take 1 tablet by mouth twice daily Ca Carb-D3-Mag Ew-Kii-Wxek-Zn (Caltrate-D3 Plus Minerals) 300 mg-800 unit -25 mg-0.5 mg tablet Discontinued 1 {tbl} PO TWICE A DAY November 26, 2017 10:02am July 24, 2019 11:24am Start: 11-26-2017 End: 07-24-2019 take 1 tablet by mouth twice daily Ca Carb-D3-Mag Gn-Yiw-Ejhy-Zn (Caltrate-D3 Plus Minerals) 300 mg-800 unit -25 mg-0.5 mg tablet Discontinued 1 TABLET PO TWICE A DAY November 26, 2017 9:02am July 24, 2019 10:24am Start: 11-26-2017 End: 07-24-2019 take 1 tablet by mouth twice daily Ca Carb-D3-Mag Tl-Tfq-Buiy-Zn (Caltrate-D3 Plus Minerals) 300 mg-800 unit -25 mg-0.5 mg tablet Discontinued 1 TABLET PO TWICE A DAY November 26, 2017 10:02am July 24, 2019 11:24am Start: 11-13-2017 End: 11-26-2017 take 1 tablet by mouth once Ca Carb-D3-Mag Ox-Log Yard Derrick Operator-Ashu -Zn (Caltrate-D3 Plus Minerals) 300 mg-800 unit -25 mg-0.5 mg tablet Discontinued 1 {tbl} PO ONCE November 13, 2017 1:00am November 26, 2017 10:02am Start: 11-13-2017 End: 11-26-2017 take 1 tablet by mouth once Ca Carb-D3-Mag Ox-Log Yard Derrick Operator-Ashu -Zn (Caltrate-D3 Plus Minerals) 300 mg-800 unit -25 mg-0.5 mg tablet Discontinued 1 TABLET PO ONCE November 13, 2017 12:00am November 26, 2017 9:02am Start: 11-13-2017 End: 11-26-2017 take 1 tablet by mouth once Ca Carb-D3-Mag Ox-Log Yard Derrick Operator-Ashu -Zn (Caltrate-D3 Plus Minerals) 300 mg-800 unit -25 mg-0.5 mg tablet Discontinued 1 TABLET PO ONCE November 13, 2017 1:00am November 26, 2017 10:02am cholecalciferol 0.05 mg oral tablet (16 sources) Vitamin D Start: 10-13-2019 End: 11-13-2024 take 1 tablet by mouth once daily Cholecalciferol (Vitamin D3) 2,000 unit tablet Discontinued 2000 U PO DAILY October 13, 2019 1:00am November 13, 2024 3:47pm ciprofloxacin 250 mg oral tablet (16 sources) Quinolone Antimicrobial Start: 12-30-2018 End: 07-08-2019 take 1 tablet by mouth every twelve hours Ciprofloxacin Hcl 250 mg tablet Discontinued 250 mg PO Q12H 14 0 December 30, 2018 12:00am July 08, 2019 10:28am core minerals (16 sources) Start: 11-13-2017 End: 07-24-2019 core minerals Discontinued PO November 13, 2017 11:13am July 24, 2019 11:24am Start: 11-13-2017 End: 07-24-2019 core minerals Discontinued P O 0 November 13, 2017 1:00am July 24, 2019 11:24am Start: 11-13-2017 End: 07-24-2019 core minerals Discontinued P O November 13, 2017 12:00am July 24, 2019 10:24am Start: 11-13-2017 End: 07-24-2019 core minerals Discontinued P O November 13, 2017 1:00am July 24, 2019 11:24am cyclobenzaprine hydrochloride 10 mg oral tablet (16 sources) Muscle Relaxant Start: 12-30-2018 End: 07-08-2019 take 1 tablet by mouth three times daily as needed for muscle spasms Cyclobenzaprine 10 mg tablet Discontinued 10 mg PO THREE TIMES A DAY as needed for muscle spasm 30 0 December 30, 2018 12:00am July 08, 2019 10:29am 1 ml denosumab 60 mg/ml prefilled syringe (10 sources) RANK Ligand Inhibitor Start: 01-08-2023 End: 07-24-2023 Denosumab (Prolia) 60 mg/mL syringe Discontinued 60 mg SC every 6 months 1 0 January 08, 2023 12:00am July 24, 2023 9:04am doxycycline monohydrate 100 mg oral capsule (16 sources) Tetracycline-class Drug Start: 07-24-2019 End: 07-31-2019 take 1 capsule by mouth twice daily Doxycycline Monohydrate 100 mg capsule Discontinued 100 mg PO TWICE A DAY 14 7 0 July 24, 2019 12:00am July 30, 2019 12:00am July 31, 2019 12:08am erythromycin 500 mg oral tablet (16 sources) Macrolide, Macrolide Antimicrobial Start: 11-13-2017 End: 08-06-2018 take 1 tablet by mouth every twelve hours Erythromycin 500 mg tablet Discontinued 500 mg PO Q12H 10 0 November 13, 2017 1:00am August 06, 2018 3:02pm Fluad Quad [id number](65yr up)(PF) 60 mcg (15 mcg x 4)/0.5mL IM syringe (flu vac (1 source) Start: 07-08-2021 End: 07-08-2021 Fluad Quad (65yr up)(PF) 60 mcg (15 mcg x 4)/0.5mL IM syringe (flu vac Discontinued 60 MCG IM ONCE 0.5 July 08, 2021 10:00am July 08, 2021 11:21am fluticasone propionate 0.05 mg/actuat metered dose nasal spray (16 sources) Corticosteroid Start: 02-15-2021 End: 01-31-2023 Fluticasone Propionate 50 mcg/actuation spray,suspension Discontinued 1 NMA INTRANASAL TWICE A DAY 14 12February 15, 2021 12:00am January 31, 2023 9:48am allergies administer into each nostril Start: 02-15-2021 End: 01-31-2023 take 1 spray(s) nasal route twice daily Fluticasone Propionate Discontinued 1 SPRAY INTRANASAL TWICE A DAY February 15, 2021 12:00am January 31, 2023 9:48am administer into each nostril ibuprofen 800 mg oral tablet (16 sources) Nonsteroidal Anti-inflammatory Drug Start: 10-14-2016 End: 07-24-2019 take 1 tablet by mouth three times daily as needed for fever Ibuprofen 800 MG tablet Discontinued 800 mg PO 3 TIMES DAILY NEEDED as needed for Fever 20 0 October 14, 2016 9:29am July 24, 2019 11:24am Lactobacillus Combo No.11 (Probiotic) 15 billion cell capsule, sprinkle (6 sources) Start: 02-27-2024 End: 05-29-2024 Lactobacillus Combo No.11 (Probiotic) 15 billion cell capsule, sprinkle Discontinued 1 NMA PO DAILY February 27, 2024 12:00am May 29, 2024 3:25pm do not crush/chew/cut; swallow whole OR may open and sprinkle in cold drink/food meloxicam 7.5 mg oral tablet (20 sources) Nonsteroidal Anti-inflammatory Drug Start: 11-13-2024 End: 06-04-2025 take 1 tablet by mouth twice daily Meloxicam 7.5 mg tablet Discontinued 7.5 mg PO TWICE A DAY 20 0 April 02, 2025 3:11pm June 04, 2025 2:08pm Start: 09-07-2020 End: 01-25-2022 take 1 tablet by mouth once daily as needed Meloxicam 15 mg tablet Discontinued 15 mg PO DAILY as needed October 08, 2020 11:22am January 25, 2022 9:11am omeprazole 40 mg delayed release oral capsule (20 sources) Proton Pump Inhibitor Start: 07-08-2021 End: 02-27-2024 take 1 capsule by mouth once daily Omeprazole 40 mg capsule,delayed release(DR/EC) Discontinued 40 mg PO DAILY 90 3 November 01, 2023 1:45pm February 27, 2024 10:07am Start: 10-13-2019 End: 07-08-2021 take 10 mg by mouth once daily Omeprazole Magnesium (P rilosec) 10 mg susp,delayed release for recon Discontinued 10 mg PO DAILY October 13, 2019 1:00am July 08, 2021 10:31am Start: 05-22-2018 End: 07-08-2019 take 1 capsule by mouth once daily Omeprazole 40 mg capsule,delayed release(DR/EC) Discontinued 40 mg PO DAILY 90 3 May 22, 2018 1:11pm July 08, 2019 10:28am Start: 10-10-2017 End: 05-22-2018 take 2 capsules by mouth once daily Omeprazole 20 MG capsule Discontinued 40 mg PO DAILY 60 11 October 10, 2017 12:20pm May 22, 2018 1:00pm Start: 10-10-2017 End: 05-22-2018 take 40 mg by mouth once daily Omeprazole Discontinued 40 MG PO DAILY 60 October 10, 2017 12:20pm May 22, 2018 1:00pm Start: 05-08-2017 End: 10-10-2017 take 1 capsule by mouth once daily Omeprazole 20 MG capsule Discontinued 20 mg PO DAILY May 08, 2017 12:00am October 10, 2017 12:20pm oxygen-air delivery systems device (10 sources) Start: 11-13-2017 End: 07-08-2019 oxygen-air delivery systems device Discontinued 0 .ROUTE .MEDSUPPLY 1 November 13, 2017 11:13am July 08, 2019 10:28am As directed Start: 11-13-2017 End: 07-08-2019 oxygen-air delivery systems device Discontinued 0 .ROUTE .MEDSUPPLY 1 November 13, 2017 12:00am July 08, 2019 9:28am As directed Start: 11-13-2017 End: 07-08-2019 oxygen-air delivery systems device Discontinued 0 .ROUTE .MEDSUPPLY 1 November 13, 2017 1:00am July 08, 2019 10:28am As directed Oxygen-Air Delivery Systems device (6 sources) Start: 11-13-2017 End: 07-08-2019 Oxygen-Air Delivery Systems device Discontinued 0 .ROUTE .MEDSUPPLY 1 0 November 13, 2017 1:00am July 08, 2019 10:28am As directed Start: 11-13-2017 End: 07-08-2019 Oxygen-Air Delivery Systems device Discontinued 0 .ROUTE .MEDSUPPLY 1 November 13, 2017 1:00am July 08, 2019 10:28am As directed pantoprazole 40 mg delayed release oral tablet (20 sources) Proton Pump Inhibitor Start: 02-27-2024 End: 02-13-2025 take 1 tablet by mouth once daily Pantoprazole 40 mg tablet,delayed release (DR/EC) Discontinued 40 mg PO DAILY August 18, 2024 5:52pm February 13, 2025 8:56pm Start: 07-08-2019 End: 07-24-2019 take 1 tablet by mouth once daily Pantoprazole 40 mg tablet,delayed release (DR/EC) Discontinued 40 mg PO DAILY July 08, 2019 12:00am July 24, 2019 11:24am predniSONE 20 mg oral tablet (16 sources) Start: 10-10-2018 End: 12-30-2018 take 1 tablet by mouth twice daily Prednisone 20 mg tablet Discontinued 20 mg PO TWICE A DAY October 10, 2018 1:00am December 30, 2018 10:42am rOPINIRole 0.25 mg oral tablet (16 sources) Nonergot Dopamine Agonist Start: 08-06-2018 End: 07-08-2019 take 1 tablet by mouth twice daily Ropinirole 0.25 mg tablet Discontinued 0.25 mg PO TWICE A DAY August 06, 2018 1:00am July 08, 2019 10:27am tiZANidine 2 mg oral tablet (20 sources) Central alpha-2 Adrenergic Agonist Start: 11-13-2024 End: 12-24-2024 take 1 tablet by mouth three times daily as needed Tizanidine 2 mg tablet Discontinued 2 mg PO THREE TIMES A DAY as needed for muscle spasticity 30 0 November 13, 2024 1:00am December 24, 2024 10:18am Start: 10-10-2018 End: 12-30-2018 take 1 tablet by mouth twice daily as needed Tizanidine 2 mg tablet Discontinued 2 mg PO TWICE A DAY as needed October 10, 2018 1:00am December 30, 2018 10:42am Problems Active Problems Problem Classification Problem Date Documented Da te Episodic/Chronic Abdominal pain (16 sources) Right flank pain; Translations: [Unspecified abdominal pain] 12-30-2018 Episodic Allergic reactions (2 sources) Inflammatory dermatosis; Translations: [Dermatitis, unspecified] 04-02-2025 Episodic Conditions associated with dizziness or vertigo (17 sources) Vertigo; Translations: [Dizziness and giddiness] Onset: 5 Episodic Conditions associated with dizziness or vertigo (6 sources) Conditions associated with dizziness or vertigo Disorders of lipid metabolism (17 sources) Hyperlipidemia; Translations: [Hyperlipidemia, unspecified] Onset: 5 06-11-2023 Chronic Esophageal disorders (20 sources) Gastroesophageal reflux disease; Translations: [Gastro-esophageal reflux disease without esophagitis] Onset: 5 Chronic Essential hypertension (20 sources) Hypertensive disorder; Translations: [Essential (primary) hypertension] Onset: 5 Chronic External Injury - Fall (1 source) Unspecified fall, initial encounter; Translations: [Unspecified fall, initial encounter] Onset: Immunizations and screening for infectious disease (19 sources) Needs influenza immunization; Translations: [Encounter for immunization] Episodic Nonspecific chest pain (16 sources) Chest pain; Translations: [Chest pain, unspecified] 11-13-2017 Episodic Osteoarthritis (16 sources) Osteoarthritis; Translations: [Unspecified osteoarthritis, unspecified site] 11-13-2017 Chronic Osteoporosis (16 sources) Osteoporosis; Translations: [Age-related osteoporosis without current pathological fracture] 12-25-2022 Chronic Other connective tissue disease (14 sources) Thigh pain; Translations: [Pain in right thigh] 07-27-2022 Episodic Other connective tissue disease (3 sources) Pain in right thigh; Translations: [Pain in limb] Episodic Other connective tissue disease (2 sources) Pain in buttock; Translations: [Myalgia, other site] 04-02-2025 Episodic Other gastrointestinal disorders (16 sources) Irritable bowel syndrome; Translations: [Irritable bowel syndrome without diarrhea] 10-14-2021 Chronic Other gastrointestinal disorders (2 sources) Irritable bowel syndrome without diarrhea; Translations: [Irritable bowel syndrome] Chronic Other hereditary and degenerative nervous system conditions (16 sources) Restless legs; Translations: [Restless legs syndrome] 08-06-2018 Chronic Other lower respiratory disease (16 sources) Imaging of lung abnormal ; Translations: [Other nonspecific abnormal finding of lung field] 08-06-2018 Episodic Other non-traumatic joint disorders (14 sources) Hip pain; Translations: [Pain in right hip] 07-27-2022 Episodic Other non-traumatic joint disorders (5 sources) Pain in right hip; Translations: [Pain in joint, pelvic region and thigh] Episodic Other non-traumatic joint disorders (11 sources) Pain in elbow; Translations: [Pain in right elbow] 11-23-2022 Episodic Other non-traumatic joint disorders (2 sources) Pain in right elbow; Translations: [Pain in joint, upper arm] 11-23-2022 Episodic Other non-traumatic joint disorders (1 source) Pain in left shoulder; Translations: [Left shoulder pain] 06-04-2025 Episodic Other screening for suspected conditions (not mental disorders or infectious disease) (20 sources) Patient encounter status; Translations: [Encounter for screening for malignant neoplasm of colon] Onset: Episodic Comment on above: Last Colonoscopy in 2022. Repeat in 7 years. Other upper respiratory infections (10 sources) Upper respiratory infection; Translations: [Acute upper respiratory infection, unspecified] 09-10-2023 Episodic Otitis media and related conditions (16 sources) Otitis media; Translations: [Otitis media, unspecified, unspecified ear] 11-13-2017 Episodic Residual codes; unclassified (17 sources) Obstructive sleep apnea syndrome; Translations: [Obstructive sleep apnea (adult) (pediatric)] 11-13-2017 Chronic Residual codes; unclassified (10 sources) Obstructive sleep apnea (adult) (pediatric); Translations: [Obstructive sleep apnea (adult)(pediatric)] Chronic Residual codes; unclassified (13 sources) Bilateral lower limb edema; Translations: [Localized edema] 06-11-2023 Episodic Residual codes; unclassified (3 sources) Localized edema; Translations: [Edema] 06-11-2023 Episodic Residual codes; unclassified (6 sources) Chill; Translations: [Chills (without fever)] 02-27-2024 Episodic Spondylosis; intervertebral disc disorders; other back problems (20 sources) Sciatica; Translations: [Sciatica, unspecified side] Onset: 11-13-2017 Episodic Thyroid disorders (20 sources) Goiter; Translations: [Nontoxic goiter, unspecified] 08-06-2018 Chronic Urinary tract infections (16 sources) Urinary tract infectious disease; Translations: [Urinary tract infection, site not specified] 12-30-2018 Episodic Varicose veins of lower extremity (16 sources) Varicose veins of lower extremity; Translations: [Varicose veins of bilateral lower extremities with pain] 10-08-2020 Episodic Viral infection (16 sources) Postherpetic neuralgia; Translations: [Other postherpetic nervous system involvement] 07-08-2021 Episodic Past or Other Problems Problem Classification Problem Date Documented Date Episodic/Chronic Other nervous system disorders (1 source) Tremor, unspecified; Translations: [Tremor, unspecified] Onset: 12-24-2024 Episodic Unclassified (15 sources) history left thyroidectomy 04-19-2022 Unclassified (15 sources) removal of bone fragments in right elbow. 04-19-2022 Results Test Name Value Interpretation Reference Range Facility Internal Medicine Office Vis geovanna 04-02-2025 Internal Medicine Office Visit [facility] [place] [address] OFFICE VISIT Date of Service: 04/02/25 MR#: [id number] Acct: [id number] Name: SONAL CONROY Rep #: [id number] : 1955 Provider: Dr. Kranthi nelson MD Age/Sex: 70/F Location: [facility] Status: Signed Intake Vital Signs 12/24/24 10:21 03/18/25 17:50 04/02/25 14:32 Height 5 ft 3 in 5 ft 3 in 5 ft 3 in Weight: 167 lb BMI 29.5 BP 122/82 H Blood Pressure Location Lt brachial Position Sitting Respiration 18 Pulse 62 Pulse Source Monitor Temp 97.3 F L Temp Source Temporal Pulse Oximetry (%) 97 Oxygen Delivery Method room air Intake Visit Reasons: 3 M FU Chief Complaint: Follow-up chronic conditions. Oral Communication Instructor Required: No Accompanied by: Is patient in pain?: Yes (R lumbar) Pain scale (1-10): 8 Allergies ropinirole Allergy (Intermediate, Verified 04/02/25 14:15) rash acetaminophen (From Vicodin) Allergy (Verified 04/02/25 14:15) Other hydrocodone bitartrate (From Vicodin) Allergy (Verified 04/02/25 14:15) Other Penicillins Allergy (Verified 04/02/25 14:15) Rash Medications ???Medication ???Instructions ???Recorded ???Confirmed ???Type mervat.stocking,thigh,reg,med #2 ea 09/07/20 04/02/25 Rx cetirizine 10 mg tablet (24Hour 5 mg (1/2 x 10 mg) PO DAILY PRN 04/02/25 Rx Allergy) allergy symptoms #30 tabs arm brace (Elbow Compression #1 ea 11/23/22 04/02/25 Rx Sleeve) zoledronic acid 5 mg/100 mL in 1 ea .Route .yearly #100 mL 04/02/25 Rx mannitol 5 %-water intravenous piggybck metoprolol succinate 50 mg 50 mg PO QDAY #90 tabs 10/13/24 Rx tablet,extended release 24 hr cuvxiurn-dvj-vjwe 18 mg-FA 400 tab PO 11/13/24 04/02/25 History mcg-calcium 500 mg-vit K 50 mcg tablet (Women's Multivitamin) Handicap Placard #1 ea 12/09/24 04/02/25 Rx atorvastatin 10 mg tablet 10 mg PO DAILY #90 tabs 12/24/24 0 04/02/25 Rx meclizine 25 mg tablet 25 mg PO BID PRN dizziness #30 tab s 12/24/24 04/02/25 Rx pantoprazole 40 mg tablet,delayed 40 mg PO DAILY #90 tabs 02/13/25 04/02/25 Rx release furosemide 20 mg tablet (Lasix) 20 mg PO Q OTHER DAY PRN edema #10 04/02/25 04/02/25 Rx tabs hydrocortisone 2.5 % topical cream 1 applic topical BID PRN itching 04/02/25 04/02/25 Rx #30 grams meloxicam 7.5 mg tablet 7.5 mg PO BID #20 tabs 04/02/25 Rx Have you fallen in the past year?: No PFSH Medical History (Updated 04/02/25 @ 19:[address] Kranthi Kramer MD) Right buttock pain Dermatitis Vertigo Chills URI (upper respiratory infection) Hyperlipidemia Bilateral lower extremity edema Osteoporosis Right elbow pain Health care maintenance Right thigh pain Right hip pain Abnormal thyroid function test Flu vaccine need Post herpetic neuralgia Colon cancer screening Thyroid disease Knee pain Chest pain Nontoxic multinodular goiter History of goiter History of left heart catheterization Osteoarthritis GERD (gastroesophageal reflux disease) Hypothyroidism SABINA (obstructive sleep apnea) Hypertension Dyskinesia of esophagus Chronic back pain Sciatica Surgical History history left thyroidectomy History of tubal ligation removal of bone fragments in right elbow. History of esophagogastroduodenoscopy (EGD) History of colonoscopy Family History Mother Hypertension Father CVA (cerebral vascular accident) Son Hypertension SABINA (obstructive sleep apnea) Social History Smoking Status: Never smoker alcohol intake: never substance use type: does not use what type of physical activity do you participate in: yoga frequency: daily HPI HPI Chief Complaint: Follow-up chronic conditions. Details: SONAL CONROY, is a 70-year-old female presenting with leg swelling and pruritus. Seen a few weeks ago for lower extremity swelling, the leg swelling has been persistent, and the patient reports significant itching associated with the use of compression stockings. The patient has tried wearing compression stockings, which resulted in increased itching so discontinued use. Only wore the compression for 2 days. Swelling persists. The patient also reports right buttock pain that began approximately one week ago. thinks it is from prolonged sitting on a hard surface which she does a lot. No numbness or tingling down extremities. Pain is in her lower back/buttock area and worse in certain positions. No change in bowel or bladder habit. Other chronic medical conditions are stable. Attestation: Documentation on this patient encounte (more content not included)... Normal [facility] Internal Medicine Office Vis geovanna 03-18-2025 Internal Medicine Office Visit [facility] [place], [place] [address] OFFICE VISIT Date of Service: 03/18/25 MR#: [id number] Acct: [id number] Name: SONAL CONROY Rep #: [id number] : 1955 Provider: Dr. Kranthi nelson MD Age/Sex: 70/F Location: [facility] Status: Signed Intake Vital Signs 12/24/24 10:21 03/18/25 17:50 Height 5 ft 3 in 5 ft 3 in Weight: 171 lb 6 oz BMI 30.3 BP 124/62 H Blood Pressure Location Lt brachial Position Sitting Respiration 16 Pulse 73 Pulse Source Monitor Temp 97.4 F L Temp Source Temporal Pulse Oximetry (%) 92 Oxygen Delivery Method room air Intake Visit Reasons: SWELLING IN BOTH FEET Chief Complaint: Bilateral lower extremity swelling Oral Communication Instructor Required: No Accompanied by: Self Is patient in pain?: No Allergies ropinirole Allergy (Intermediate, Verified 03/18/25 17:45) rash acetaminophen (From Vicodin) Allergy (Verified 03/18/25 17:45) Other hydrocodone bitartrate (From Vicodin) Allergy (Verified 03/18/25 17:45) Other Penicillins Allergy (Verified 03/18/25 17:45) Rash Medications ???Medication ???Instructions ???Recorded ???Confirmed ???Type mervat.stocking,thigh,reg,med #2 ea 09/07/20 03/18/25 Rx cetirizine 10 mg tablet (24Hour 5 mg (1/2 x 10 mg) PO DAILY PRN 03/18/25 Rx Allergy) allergy symptoms #30 tabs arm brace (Elbow Compression #1 ea 11/23/22 03/18/25 Rx Sleeve) zoledronic acid 5 mg/100 mL in 1 ea .Route .yearly #100 mL 03/18/25 Rx mannitol 5 %-water intravenous piggybck metoprolol succinate 50 mg 50 mg PO QDAY #90 tabs 10/13/24 Rx tablet,extended release 24 hr meloxicam 7.5 mg tablet 7.5 mg PO BID #20 tabs 11/13/24 Rx yotvrmow-xgh-xjuc 18 mg-FA 400 tab PO 11/13/24 03/18/25 History mcg-calcium 500 mg-vit K 50 mcg tablet (Women's Multivitamin) Handicap Placard #1 ea 12/09/24 03/18/25 Rx atorvastatin 10 mg tablet 10 mg PO DAILY #90 tabs 12/24/24 0 03/18/25 Rx meclizine 25 mg tablet 25 mg PO BID PRN dizziness #30 tab s 12/24/24 03/18/25 Rx pantoprazole 40 mg tablet,delayed 40 mg PO DAILY #90 tabs 02/13/25 03/18/25 Rx release Have you fallen in the past year?: No PFSH Medical History Vertigo Chills URI (upper respiratory infection) Hyperlipidemia Bilateral lower extremity edema Osteoporosis Right elbow pain Health care maintenance Right thigh pain Right hip pain Abnormal thyroid function test Flu vaccine need Post herpetic neuralgia Colon cancer screening Thyroid disease Knee pain Chest pain Nontoxic multinodular goiter History of goiter History of left heart catheterization Osteoarthritis GERD (gastroesophageal reflux disease) Hypothyroidism SABINA (obstructive sleep apnea) Hypertension Dyskinesia of esophagus Chronic back pain Sciatica Surgical History history left thyroidectomy History of tubal ligation removal of bone fragments in right elbow. History of esophagogastroduodenoscopy (EGD) History of colonoscopy Family History Mother Hypertension Father CVA (cerebral vascular accident) Son Hypertension SABINA (obstructive sleep apnea) Social History Smoking Status: Never smoker alcohol intake: never substance use type: does not use what type of physical activity do you participate in: yoga frequency: daily HPI HPI Chief Complaint: Bilateral lower extremity swelling Details: SONAL CONROY is a 70-year-old female presenting with swelling of the feet. The swelling has been present for approximately one week and is associated with prolonged sitting and walking. The patient denies any shortness of breath and reports that the swelling is less pronounced in the morning but returns with activity. The patient has attempted interventions such as ice application. She reports that the swelling extends up to the knees and is not accompanied by redness or pain, ruling out gout. She has not started any new medications recently and reports no significant changes in her health status. Attestation: Documentation on this patient encounter was supported using ambient scribe technology/ voice AI technology. The patient consented to recording for the purpose of documenting the encounter. Provider reviewed content of the generated note prior to signature. ROS Const Constitutional: No body ache, excessive sweating, fatigue, fever(s), frequent falls, headache(s), snoring, weakness, weight change, sleep problems or change in appetite Eyes Eyes: No blurry vision, change in vision, vision loss, dry eyes, eye pain or Light sen (more content not included)... Normal [facility] PT D/C Summary (1)on 025 PT D/C Summary (1) [facility] Physical [facility] [address] [place] [address] / REHABILITATION SERVICES DISCHARGE SUMMARY MR#: [id number] Acct: [id number] Name: SONAL CONROY Rep #: [id number] : 1955 70 From: Geoff Perez DPT, OCS, CSCS Referring Dr.: Dr. Kranthi Kramer MD Status: REG RCR Insurance: [employer]URANCE Discharge Summary D/C summary: It has been my pleasure to treat SONAL CONROY referred by Dr. Kranthi Kramer MD, with the diagnosis of vertigo for a total of 15 visit(s). Discharge Date: 03/09/25 Please see the following information for a summary of their discharge status. Subjective Subjective: L rotation still feels limited but not painful. Turning better in the car. Pain is not bad , up to 3/10 with rotating L only. Sleep is OK. No spinning lately. Activities are pretty normal. To Dr. Kramer next month. Pain neck: Pain Intensity (Out of 10): 3 Overall Improvement % Improvement: 90 Objective Objective/Function: 65 R rotation, 62 L rotation, 65 ext, n pain. No wincing. - c/s comrpession. No spinning or pain today. Goals Goal 1:: abolish dizzy feeling in am Goal Progress: Goal Met Goal 2:: FGA Goal Progress: Goal Met Goal 3:: Neck pain 50% better and 3/10 at worst and manageable Goal Progress: Goal Met Goal 4:: DHI score 20 or better Goal Progress: Goal Met Goal 5:: I appropriate management of condition Goal Progress: Goal Met Goal 6:: rotate head L without pain to turn head in car without wincing. Goal Progress: Goal Met Plan Plan: d/c to HEP D/C Information d/c sentence: If there are questions or concerns regarding this patient's physical therapy, please feel free to call me at [phone]. Thank you for the referral of this patient. Sincerely, Geoff Perez, DPT, OCS, CSCS Balance/Gait/Functional tests Balance/Special Test Scores Functional Gait Assessment Score: 29 % Disability: 3.3400 CATSIB Score (Max score 120 seconds): 105 Dizziness Score: 0 Improvement % Improvement: 90 03/09/25 1310 CC: Dr. Kranthi Kramer MD EBG Signed Normal [facility] Re-Evaluation - PT (1)on Re-Evaluation - PT (1) [facility] Physical Therapy [address] [place] [address] / REEVALUATION / MEDICARE RECERTIFICATION PHYSICAL THERAPY MR#: [id number] Acct: [id number] Name: SONAL CONROY Rep #: [id number] : 1955 69 From: Geoff Perez DPT, OCS, CSCS Referring Dr.: Dr. Kranthi Kramer MD Status:REG RC R Insurance: [employer] INSURANCE Re-Evaluation Intro: Dr. Kranthi Kramer MD, It has been my pleasure to treat SONAL CONROY over the last 10 visits for vertigo. Please see the progress note below for an update on the physical therapy plan of care! Subjective Subjective: Dizzyness is gone, none in a while. Neck still hurts if she moves funny. Balance is Ok too. neck pain continues when she lies on L side. During day normally it is pretty good. HEP : good for neck, stopped dizzy. To doctor in end of March. Dizzyneess 100%, neck 50% Objective Objective/Function: L rot 55 with pain and R is 65 without pain, extension is 50 without pain. FGA much b shawn and no dizzyneess with position changes today. Dizzyneess much better and abolished, balance back to normal, Neck improving but still weeak and limited in L rotation. Limited visits have effected this and is appropriate to finish original POC over the next 2-3 week as her is doing better now. Same goals adding full L rotation without pain to turn head in car without wincing. fair prognosis. Plan Plan Plan: 2x/week x 5 more visits. Please do L rotation mobs, PROM and upper cervical mobs Please do upper hald postural cervical strngth and progress to home band exercises (I started this today) Balance/Gait/Functional tests Balance/Special Test Scores Functional Gait Assessment Score: 29 % Disability: 3.3400 CATSIB Score (Max score 120 seconds): 105 Dizziness Score: 10 Goals Goals Goal 1:: abolish dizzy feeling in am Goal Time Frame: 4-6 Weeks Goal Progress: Goal Met Goal 2:: FGA Goal Time Frame: 4-6 Weeks Goal Progress: Goal Met Goal 3:: Neck pain 50% better and 3/10 at worst and manageable Goal Time Frame: 4-6 Weeks Goal Progress: Goal Met Goal 4:: DHI score 20 or better Goal Time Frame: 4-6 Weeks Goal Progress: Goal Met Goal 5:: I appropriate management of condition Goal Time Frame: 4-6 Weeks Goal Progress: needs strength Goal 6:: rotate head L without pain to turn head in car without wincing. Goal Time Frame: 2-4 Weeks Goal Progress: NEW GOAL Anticipated Interventions Anticipated Interventions Patient/Client Instruction: Educate patient on: Condition and Plan of Care For the Purpose of:: To decrease pain, To increase ROM, To improve muscle performance and motor function, To increase tolerance to activity/condition/position, To improve ability of physical actions for home/community/work/leisure and To improve gait and locomotor functions Therapeutic Exercise to Include: Strength training, Flexibilty training, Passive ROM and Active ROM Comment: adaptation progression. For the Purpose of:: To decrease pain, To increase ROM, To improve nutrient delivery to tissue, To improve muscle performance and motor function and To increase tolerance to activity/condit ion/position Manual Therapy Techniques to Include: Mobilization, Passive ROM and Soft tissue mobilization For the Purpose of:: To decrease pain, To increase ROM, To improve nutrient delivery to tissue, To increase tolerance to activity/condition/position and To improve ability of physical actions for home/community/work/leisure Thermo therapy (hot pack): Yes For the Purpose of:: To increase ROM and To improve nutrient delivery to tissue Re-Evaluation Ending Re-evaluation ending: Please do not hesitate to contact me at [phone] by phone or if you have questions or concerns regarding this new plan of care! Sincerely, ADIEL GardnerT, OCS, CSCS 02/18/25 1124 CC: Dr. Kranthi Kramer MD EBKorina Signed For Medicare only, by signing this I certify the plan of care. Physicians Signature Date Normal [facility] Breast imaging reportOrdered By: Jenn Madrigal on 02-02-2025 Study report [facility] Imaging Services [address] [place] [address] SCRN MAMM (CAD)W/CLAUDIA BILAT MR#: [id number] Acct: [id number] Name: SONAL CONROY Rep #: [id number] : 1955 F 69 From: Riki Madrigal DO PCP: Dr. Kranthi Kramer MD Status: R EG CLI Study:SCRN MAMM (CAD)W/CLAUDIA BILAT Date of Exa m: 01/29/25 Exam# [id number] Ordering Dr: Maritza Kramer MD EXAM: SCRN MAMM (CAD)W/CLAUDIA BILAT DATE: 01/29/2025 CLINICAL HISTORY: F, Age 69 y/o , BREAST CANCER SCREENING BREAST CANCER RISK ASSESSMENT: Has not been calculated. TECHNIQUE: Bilateral screening digital breast tomosynthesis with 2D and 3D images. Computeraided detection. COMPARISON: Prior exam(s) dated 12/27/2023 and 12/20/2022. FINDINGS: TISSUE DENSITY: The breast tissue is almost entirely fatty. Bilateral Breast Mammographic Findings: There are no suspicious masses, suspicious clustered microcalcifications, architectural distortion or secondary signs of malignancy identified in either breast. Benign-appearing round microcalcifications are seen in both breast. BI/SCRN MAMM (CAD)W/CLAUDIA BILAT IMPRESSION: OVERALL FINAL ASSESSMENT: BIRADS 2 BENIGN FINDING RECOMMENDATION: Routine annual follow-up in 1 Year A letter with findings and recommendations will be mailed to the patient. Reading Location: [id number] CC: Dr. Kranthi Kramer MD ~ Wood Mechanist: Signed [facility] SCRN MAMM (CAD)W/CLAUDIA BILATo n 01-29-2025 SCRN MAMM (CAD)W/CLAUDIA BILAT [facility] Imaging Services [address] [place], [place] [address] SCRN MAMM (CAD)W/CLAUDIA BILAT MR#: [id number] Acct: [id number] Name: SONAL CONROY Rep #: [id number] : 1955 F 69 From: Jenn Beaulieu PCP: Dr. Kranthi Kramer MD Status: REG CLI Study: SCRN MAMM (CAD)W/CLAUDIA BILAT Date of Exam: 10/25 Exam# [id number] Ordering Dr: Kranthi Kramer MD EXAM: SCRN MAMM (CAD)W/CLAUDIA BILAT DATE: 01/29/2025 CLINICAL HISTORY: F, Age 69 y/o , BREAST CANCER SCREENING BREAST CANCER RISK ASSESSMENT: Has not been calculated. TECHNIQUE: Bilateral screening digital breast tomosynthesis with 2D and 3D images. Computer aided detection. COMPARISON: Prior exam(s) dated 12/27/2023 and 12/20/2022. FINDINGS: TISSUE DENSITY: The breast tissue is almost entirely fatty. Bilateral Breast Mammographic Findings: There are no suspicious masses, suspicious clustered microcalcifications, architectural distortion or secondary signs of malignancy identified in either breast. Benign-appearing round microcalcifications are seen in both breast. BI/SCRN MAMM (CAD)W/CLAUDIA BILAT IMPRESSION: OVERALL FINAL ASSESSMENT: BIRADS 2 BENIGN FINDING RECOMMENDATION: Routine annual follow-up in 1 Year A letter with findings and recommendations will be mailed to the patient. Reading Location: [id number] CC: Dr. Kranthi Kramer MD Wood Mechanist: Signed Normal [facility] Inital Evaluation (1) - PTon 01-05-2025 Inital Evaluation (1) - PT [facility] Physical Therapy [facility] [address] [place] [address]. [address] [place] [address] / REHABILITATION SERVICES INITIAL EVALUATION MR#: [id number] Acct: [id number] Name: SONAL CONROY Rep #: [id number] : 1955 69 From: Geoff Perez DPT, OCS, CSCS Referring Dr.: Dr. Kranthi Kramer MD Status: REG RCR Insurance: [employer] INSURANCE Patient's Visit Information Visit Information Visit Information: SONAL CORNOY is a 69 year old F referred to Physical Therapy by Dr. Kranthi Kramer MD with a diagnosis of vertigo. Date of Evaluation: 01/05/25 Physical Therapist: Geoff Perez, DPT, OCS, CSCS Visit Plan Frequency: 2x /Week Duration: 4-6 Weeks Plan: 2x/week for 3-6 weeks for... 1. STM, MH and manual therapy for PROM cervical and teach home stretches/strengthening of neck and posture to I. 2. progress Adaptation ex as HEP, [place] ex. IE HEP: VOR 60 sec 6x/day seated. Care with balance and effects of stress and fatigue on dizzyness and need to manage. Subjective Subjective: Started getting dizzy about a month correlating with neck stiffness. Dizzy is described as having to sit when she wakes in am and gets up, has to hold tran. Unsteady until she sits. No spinning. Holding on she is OK. This was no problem. No problem Sitting is always OK. m lying down or rolling. Doctor gave her meds which she is not sure if it helps. Neck hurts also and is 8/10 intermittently and worse and not sure why. X ray was OK. No arm symptoms Sleep is OK but worse lately due to stress from being sick and [place]num[place] and in hopsital. Retired. Spends day cleaning house and taking care of house. Can do this . Has TM and she walks in the am. Basic ADLS are all I. Steps at home and has to be careful with knee OA. Pain neck: Pain Intensity (Out of 10): 6 Pain Intensity Range: 0 and 8 Objective Objective: Walks slowly but I back to PT, flat affect and seemingly stressed. Transfers I. steps with railing reciprocally. cervical aROM 45 ext adn 45 B rotations feeling stiff and sore. Tender to palpation throughout pericervical soft tissue. - c/s compression. UE AROM WFL and reflexes bi and tri 2/3, sensation WNL to gross light touch in UE. - B hallpike matt - roll test. Oculomotor: no nystagmus with gaze or head shake No positions exceot up from HD make her dizzy - skew eye deviation(hard time following these instructions.) - ocular tilt. - had thrust. normal purusuit and saccades without symptoms. VOR gives slight symptoms 30 sec H 3/10 for a few seconds. Balance/Special Test Scores Functional Gait Assessment Score: 23 % Disability: 23.3400 CATSIB Score (Max score 120 seconds): 105 Dizziness Score: 50 Goals Goal 1:: abolish dizzy feeling in am Goal Time Frame: 4-6 Weeks Goal 2:: FGA 2630 Goal Time Frame: 4-6 Weeks Goal 3:: Neck pain 50% better and 3/10 at worst and manageable Goal Time Frame: 4-6 Weeks Goal 4:: DHI score 20 or better Goal Time Frame: 4-6 Weeks Goal 5:: I appropriate management of condition Goal Time Frame: 4-6 Weeks Rehabilitation Potential Physical Therapy Diagnosis: imbalance, neck pain and dizzy feeling. Rehabilitation Potential: Fair Anticipated Interventions Patient/Client Instruction: Educate patient on: Condition and Plan of Care For the Purpose of:: To decrease pain, To increase ROM, To improve muscle performance and motor function, To increase tolerance to activity/condition/position, To improve ability of physical actions for home/community/work/leisure and To improve gait and locomotor functions Therapeutic Exercise to Include: Strength training, Flexibilty training, Passive ROM and Active ROM Comment: adaptation progression. For the Purpose of:: To decrease pain, To increase ROM, To improve nutrient delivery to tissue, To improve muscle performance and motor function and To increase tolerance to a ctivity/condition/position Manual Therapy Techniques to Include: Mobilization, Passive ROM and Soft tissue mobilization For the Purpose of:: To decrease pain, To increase ROM, To improve nutrient delivery to tissue, To increase tolerance to activity/condition/position and To improve ability of physical actions for home/community/work/leisure Thermo therapy (hot pack): Yes For the Purpose of:: To increase ROM and To improve nutrient delivery to tissue Text: Thank you for the opportunity to evaluate your patient. For Medicare and Medicare HMO plans, please review the plan of care and approve it. It will need to be FAXED BACK to us at [phone] for Medicare purposes. For Medicare only, by signing this I certify the plan of care. Please let me know if there are questions or concerns regarding this plan of care. Physician Signature: (more content not included)... Normal [facility] Anion gap in Serum or Plasma Ordered By: Kranthi Kramer on 12-24-2024 Anion gap [Moles/Vol] 12 mmol/L 5-15 [facility] BUN/creatinine ratioOrdered By: Kranthi Kramer on 12-24-2024 Urea nitrogen/Creatinine [Mass ratio] 23.0 mg/mg High - [facility] Basic Metabolic Profile (BMP )on 12-24-2024 BUN/CRE 23.0 RATIO High 07-20 [facility] Comment on above: Performed By: #### L 500.4100, L500.4050 #### [facility] [address] [place], [address] Calcium [Mass/Vol] 9.5 mg/dL Normal 7.6-11.0 [facility] Comment on above: Performed By: #### L 500.4100, L500.4050 #### [facility] [address] [place], [address] Chloride [Moles/Vol] 105 mmol/L Normal 98-108 [facility] Comment on above: Performed By: #### L 500.4100, L500.4050 #### [facility] [address] [place], [address] CO2 [Moles/Vol] 25.2 mmol/L Normal 21.0-32.0 [facility] Comment on above: Performed By: #### L 500.4100, L500.4050 #### [facility] [address] [place], [address] Creatinine [Mass/Vol] 0.74 mg/dL Normal 0.70-1.20 [facility] Comment on above: Performed By: #### L 500.4100, L500.4050 #### [facility] [address] [place], [address] GAP 12 Normal 5-15 [facility] Comment on above: Performed By: #### L 500.4100, L500.4050 #### [facility] [address] [place], [address] GFR/1.73 sq M.predicted among non-blacks MDRD (S/P/Bld) [Vol rate/Area] 87 mL/min/{1.73_m2} Normal >60 [facility] Comment on above: Result Comment: mL/m in/1.73m2 CKD-EPI Creatinine Equation (2020) Performed By: #### L 500.4100, L500.4050 #### [facility] [address] [place], [address] Glucose [Mass/Vol] 78 mg/dL Normal 70-99 [facility] Comment on above: Performed By: #### L 500.4100, L500.4050 #### [facility] [address] [place], [address] Potassium [Moles/Vol] 4.2 mmol/L Normal 3.3-5.1 [facility] Comment on above: Performed By: #### L 500.4100, L500.4050 #### [facility] [address] [place], [address] Sodium [Moles/Vol] 142 mmol/L Normal 133-145 [facility] Comment on above: Performed By: #### L 500.4100, L500.4050 #### [facility] [address] [place], [address] Urea nitrogen [Mass/Vol] 17 mg/dL Normal 4-19 [facility] Comment on above: Performed By: #### L 500.4100, L500.4050 #### [facility] [address] [place], [address] Calculated very low density lipoprotein (VLDL) cholesterol measurementOrdered By: Kranthi Kramer on 12-24-2024 Calculated very low density lipoprotein (VLDL) cholesterol measurement 33 mg/dL 5-40 [facility] VLDL Cholesterol 33 mg/dL 5-40 [facility] Carbon dioxide, total [Moles /volume] in Central venous bloodOrdered By: Kranthi Kramer on 12-24-2024 CO2 [Moles/Vol] 25.2 mmol/L 21.0-32.0 [facility] Chloride assayOrdered By: Juvencio Kramer on 12-24-2024 Chloride [Moles/Vol] 105 mmol/L 98-108 [facility] GFR/1.73 sq M.predicted jemma g non-blacks MDRD (S/P/Bld) [Vol rate/Area]Ordered By: Kranthi Kramer on 12-24-2024 Estimated GFR (MDRD) Non-Af Amer 87 >60 [facility] Comment on above: mL/min/1.73m2 CKD-EP I Creatinine Equation (2020) Glomerular filtration rate ( GFR) estimation/1.73 sq m using serum, plasma, or whole bOrdered By: Kranthi Kramer on 12-24-2024 GFR/1.73 sq M.predicted among non-blacks MDRD (S/P/Bld) [Vol rate/Area] 87 mL/min/{1.73_m2} >60 [facility] Comment on above: mL/min/1.73m2 CKD-EP I Creatinine Equation (2020) Internal Medicine Office Vis itopauline 12-24-2024 Internal Medicine Office Visit [facility] [place] [address] [place] [address] OFFICE VISIT Date of Service: 12/24/24 MR#: [id number] Acct: [id number] Name: SONAL CONROY Rep #: [id number] : 1955 Provider: Dr. Kranthi nelson MD Age/Sex: 69/F Location: [facility] Status: Signed Intake Vital Signs 11/13/24 14:48 12/24/24 10:21 Height 5 ft 3 in 5 ft 3 in Weight: 166 lb BMI 29.4 BP 122/82 H Blood Pressure Location Lt brachial Position Sitting Respiration 16 Pulse 71 Pulse Source Monitor Temp 97.5 F L Temp Source Temporal Pulse Oximetry (%) 95 Oxygen Delivery Method room air Intake Visit Reasons: Dizziness (cardiology) Chief Complaint: Dizziness Oral Communication Instructor Required: No Is patient in pain?: No Allergies ropinirole Allergy (Intermediate, Verified 12/24/24 10:10) rash acetaminophen (From Vicodin) Allergy (Verified 12/24/24 10:10) Other hydrocodone bitartrate (From Vicodin) Allergy (Verified 12/24/24 10:10) Other Penicillins Allergy (Verified 12/24/24 10:10) Rash Medications ???Medication ???Instructions ???Recorded ???Confirmed ???Type mervat.stocking,thigh,reg,med #2 ea 09/07/20 12/24/24 Rx cetirizine 10 mg tablet (24Hour 5 mg (1/2 x 10 mg) PO DAILY PRN 12/24/24 Rx Allergy) allergy symptoms #30 tabs arm brace (Elbow Compression #1 ea 11/23/22 12/24/24 Rx Sleeve) zoledronic acid 5 mg/100 mL in 1 ea .Route .yearly #100 mL 12/24/24 Rx mannitol 5 %-water intravenous piggybck pantoprazole 40 mg tablet,delayed 40 mg PO DAILY #90 tabs 08/18/24 12/24/24 Rx release atorvastatin 20 mg tablet 10 mg (1/2 x 20 mg) PO DAILY #90 1 12/24/24 Rx tabs metoprolol succinate 50 mg 50 mg PO QDAY #90 tabs 10/13/24 Rx tablet,extended release 24 hr meloxicam 7.5 mg tablet 7.5 mg PO BID #20 tabs 11/13/24 Rx hspbntmo-vsa-ylng 18 mg-FA 400 tab PO 11/13/24 12/24/24 History mcg-calcium 500 mg-vit K 50 mcg tablet (Women's Multivitamin) Handicap Placard #1 ea 12/09/24 12/24/24 Rx meclizine 25 mg tablet 25 mg PO BID PRN dizziness #30 tab s 12/24/24 12/24/24 Rx Have you fallen in the past year?: No PFSH Medical History (Updated 12/24/24 @ 10:[address] Kranthi Kramer MD) Vertigo Chills URI (upper respiratory infection) Hyperlipidemia Bilateral lower extremity edema Osteoporosis Right elbow pain Health care maintenance Right thigh pain Right hip pain Abnormal thyroid function test Flu vaccine need Post herpetic neuralgia Colon cancer screening Thyroid disease Knee pain Chest pain Nontoxic multinodular goiter History of goiter History of left heart catheterization Osteoarthritis GERD (gastroesophageal reflux disease) Hypothyroidism SABINA (obstructive sleep apnea) Hypertension Dyskinesia of esophagus Chronic back pain Sciatica Surgical History history left thyroidectomy History of tubal ligation removal of bone fragments in right elbow. History of esophagogastroduodenoscopy (EGD) History of colonoscopy Family History Mother Hypertension Father CVA (cerebral vascular accident) Son Hypertension SABINA (obstructive sleep apnea) Social History Smoking Status: Never smoker alcohol intake: never substance use type: does not use what type of physical activity do you participate in: yoga frequency: daily HPI HPI Chief Complaint: Dizziness Details: SONAL CONROY, is a 69 F who presents to the office today with some concerns. Over the last 2 weeks, she states that she has felt unsteady. This typically happens with changing position and on laying down and she states that when she is having a shower, it feels like the room is spinning. Symptoms are slowly improving but still present. No blurring of her vision, headache or otherwise feeling of unwell. History of hyperlipidemia on atorvastatin. She states that she has been taking half of her current tablet and questions if this is sufficient. Stable lipid profile at last check improved from where it had been a few months prior. She is not sure of when she started taking half tablet. Other chronic medical conditions are stable. ROS Const Constitutional: No body ache, chills, excessive sweating, fatigue, fever(s), frequent falls, headache(s), snoring, weakness, sleep problems or change in appetite Eyes Eyes: No blurry vision, change in vision, bulging eyes, floaters, visual disturbances, eye pain or Light sensitivity ENT ENT: Positive for dizziness/vertigo; No abnormal hearing, ear or mastoid pain, tinnitus, balance problems, nosebleed/epistaxis, nasal c (more content not included)... Normal [facility] LDL calc ser/plasOrdered By: Kranthi Kramer on 12-24-2024 Cholesterol in LDL [Mass/Vol] 91 mg/dL [facility] Comment on above: Dyghfflodr=189-827 m g/dL & Higher Qwpo=486 mg/dL or greater LDL Cholesterol, Calculated 91 mg/dL [facility] Comment on above: Enlsuufsgz=857-912 m g/dL & Higher Wymh=768 mg/dL or greater Laboratory - Chemistry and C hemistry - challengeOrdered By: Kranthi Kramer on 12-24-2024 Glucose [Mass/Vol] 90 mg/dL 70-110 [facility] Lipid Profileon 12-24-2024 CHOL:HDL 2.97 Normal [facility] Comment on above: Performed By: #### L 500.4100, L500.4050 #### [facility] [address] [place], [place], [id number] (140) Cholesterol [Mass/Vol] 187 mg/dL Normal <=200 [facility] Comment on above: Result Comment: Chol esterol level, Desirable <200 mg/dL Borderline high cholesterol 200-239 mg/dL High cholesterol >=240 mg/dL Recommendations of the NCEP Adult Treatment Panel for the following risk-cutoff thresholds for the [place] Citizen [place] population. Performed By: #### L 500.4100, L500.4050 #### [facility] [address] [place], [place], [id number] Cholesterol in HDL [Mass/Vol] 63 mg/dL Normal [facility] Comment on above: Result Comment: Melanie onal Cholesterol Education Program (NCEP) guidelines: <40 mg/dL: Low HDL-cholesterol (major risk factor for CHD) >= 60 mg/dL: High HDL-cholesterol (negative risk factor for CHD) HDL-cholesterol is affected by a number of factors, e.g. smoking, exercise, hormones, sex and age. Performed By: #### L 500.4100, L500.4050 #### [facility] [address] [place], [address] Cholesterol in LDL [Mass/Vol] 91 mg/dL Normal [facility] Comment on above: Result Comment: Bord sqwrhg=409-315 mg/dL Higher Mdfi=901 mg/dL or greater Performed By: #### L 500.4100, L500.4050 #### [facility] [address] [place], [address] Cholesterol in VLDL [Mass/Vol] 33 mg/dL Normal 5-40 [facility] Comment on above: Performed By: #### L 500.4100, L500.4050 #### [facility] [address] [place], [address] Triglyceride [Mass/Vol] 165 mg/dL Normal [facility] Comment on above: Result Comment: The drugs N-Acetylcysteine and Metamizole may falsely depress this assay. Normal range: <150 mg/dL Borderline High: 150-199 mg/dL High: 200-499 mg/dL Very High: >500 mg/dL Performed By: #### L 500.4100, L500.4050 #### [facility] [address] [place], [address] Potassium (Unsp spec) [Mass/ Vol]Ordered By: Kranthi Kramer on 12-24-2024 Potassium [Moles/Vol] 4.2 mmol/L 3.3-5.1 [facility] Potassium measurement (mass/ volume)Ordered By: Kranthi Kramer on 12-24-2024 Potassium (Unsp spec) [Mass/Vol] 4.2 mmol/L 3.3-5.1 [facility] Screening total cholesterol/ high density lipoprotein (HDL) cholesterol ratioOrdered By: Kranthi Kramer on 12-24-2024 Cholesterol.total/C holesterol in HDL [Mass ratio] 2.97 {ratio} [facility] Serum creatinine measurement (mass/volume)Ordered By: Kranthi Kramer on 12-24-2024 Creatinine [Mass/Vol] 0.74 mg/dL 0.70-1.20 [facility] Serum glucose measurement (m ass/volume)Ordered By: Kranthi Kramer on 12-24-2024 Glucose [Mass/Vol] 78 mg/dL 70-99 [facility] Serum or plasma calcium vipul urement (mass/volume)Ordered By: Kranthi Kramer on 12-24-2024 Calcium [Mass/Vol] 9.5 mg/dL 7.6-11.0 [facility] Serum or plasma cholesterol in HDL measurement (mass/volume)Ordered By: Kranthi Kramer on 12-24-2024 Cholesterol in HDL [Mass/Vol] 63 mg/dL >40 [facility] Comment on above: National Cholesterol Education Program (NCEP) guidelines:<40 mg/dL: Low HDL-cholesterol (major risk factor for CHD)>= 60 mg/dL: High HDL-cholesterol (negative risk factor for CHD)HDL-cholesterol is affected by a number of factors, e.g. smoking, exercise, hormones, sex and age. Serum or plasma cholesterol measurement (mass/volume)Ordered By: Kranthi Kramer on 12-24-2024 Cholesterol [Mass/Vol] 187 mg/dL <201 [facility] Comment on above: Cholesterol level, D esirable <200 mg/dLBorderline high cholesterol 200-239 mg/dLHigh cholesterol >=240 mg/dLRecommendations of the NCEP Adult Treatment Panel for the following risk-cutoff thresholds for the [place] population. Serum or plasma urea nitroge n measurement (mass/volume)Ordered By: Kranthi Kramer on 12-24-2024 Urea nitrogen [Mass/Vol] 17 mg/dL 4-19 [facility] Sodium levelOrdered By: Clare Kramer on 12-24-2024 Sodium [Moles/Vol] 142 mmol/L 133-145 [facility] Triglycerides measurementOrd ered By: Kranthi Kramer on 12-24-2024 Triglyceride [Mass/Vol] 165 mg/dL <199 [facility] Comment on above: The drugs N-Acetylcy steine and Metamizole may falsely depress this assay. Normal range: <150 mg/dLBorderline High: 150-199 mg/dLHigh: 200-499 mg/dLVery High: >500 mg/dL Cerv Spine 2 or 3 Viewson Cerv Spine 2 or 3 Views [facility] Services [address] [place] [address] Cerv Spine 2 or 3 Views MR#: [id number] Acct: [id number] Name: SONAL CONROY Rep #: [id number] : 1955 F 69 From: Armani Montenegro DO PCP: Dr. Kranthi Kramer MD Status: REG CLI Study: Cerv Spine 2 or 3 Views Date of Exam: 11/13/24 Exam# [id number] Ordering Dr: Robe Kevin PROCEDURE: CERV SPINE 2 OR 3 VIEWS REASON FOR EXAM: Neck pain. TECHNIQUE: 3 views of the cervical spine. COMPARISON: None. FINDINGS: Cervical vertebral bodies are seen to the upper thoracic level on the sagittal view. Cervical vertebral bodies maintain a normal height. There is mild levocurvature of the cervical spine. There is minimal disc space narrowing from C4-C7. No acute fracture or subluxation is identified. Atlantodental interval is intact. Odontoid process is intact. Lateral masses align. Prevertebral soft tissues are unremarkable. RAD/Cerv Spine 2 or 3 Views IMPRESSION: 1. No acute osseous abnormality. 2. Mild degenerative changes. Reading Location: [facility] CC: Dr. Kranthi Kramer MD; IRMA Shi Wood Mechanist: Signed Normal [facility] Internal Medicine Office Vis geovanna 11-13-2024 Internal Medicine Office Visit [facility] [address] [place] [address] [place] [address] OFFICE VISIT Date of Service: 11/13/24 MR#: [id number] Acct: [id number] Name: SONAL CONROY Rep #: [id number] : 1955 Provider: IRMA Shi Age/Sex: 69/F Location: [facility] Status: Signed Intake Vital Signs 09/29/24 10:44 11/13/24 14:48 Height 5 ft 3 in 5 ft 3 in Weight: 163 lb 165 lb BMI 28.8 29.2 BP 110/64 122/78 H Blood Pressure Location Lt brachial Lt brachial Position Sitting Sitting Respiration 14 18 Pulse 52 L 70 Pulse Source Monitor Monitor Temp 97.1 F L 97.8 F Temp Source Temporal Temporal Pulse Oximetry (%) 95 97 Oxygen Delivery Method room air room air Intake Visit Reasons: ACUTE - PAIN IN NECK/PINCHED NERVE? Chief Complaint: ACUTE - PAIN IN NECK/PINCHED NERVE? Is patient in pain?: Yes (8 pain in neck with limited ROM) Allergies ropinirole Allergy (Intermediate, Verified 11/13/24 14:45) rash acetaminophen (From Vicodin) Allergy (Verified 11/13/24 14:45) Other hydrocodone bitartrate (From Vicodin) Allergy (Verified 11/13/24 14:45) Other Penicillins Allergy (Verified 11/13/24 14:45) Rash Medications ???Medication ???Instructions ???Recorded ???Confirmed ???Type mervat.stocking,thigh,reg,med #2 ea 09/07/20 11/13/24 Rx cetirizine 10 mg tablet (24Hour 5 mg (1/2 x 10 mg) PO DAILY PRN 11/13/24 Rx Allergy) allergy symptoms #30 tabs Handicap Placard #1 ea 01/25/22 11/13/24 Rx arm brace (Elbow Compression #1 ea 11/23/22 11/13/24 Rx Sleeve) zoledronic acid 5 mg/100 mL in 1 ea .Route .yearly #100 mL 11/13/24 Rx mannitol 5 %-water intravenous piggybck pantoprazole 40 mg tablet,delayed 40 mg PO DAILY #90 tabs 08/18/24 11/13/24 Rx release atorvastatin 20 mg tablet 10 mg (1/2 x 20 mg) PO DAILY #90 1 11/13/24 Rx tabs metoprolol succinate 50 mg 50 mg PO QDAY #90 tabs 10/13/24 Rx tablet,extended release 24 hr meloxicam 7.5 mg tablet 7.5 mg PO BID #20 tabs 11/13/24 Rx gzfoasum-hyt-hoya 18 mg-FA 400 tab PO 11/13/24 11/13/24 History mcg-calcium 500 mg-vit K 50 mcg tablet (Women's Multivitamin) tizanidine 2 mg tablet 2 mg PO TID PRN muscle spasticity 11/13/24 11/13/24 Rx #30 tabs Have you fallen in the past year?: No Nurse's Note: pt reports that she was stretching/cracking her neck a couple of months ago and noticed significant pain of 8 on 0-10 scale PFSH Medical History Chills URI (upper respiratory infection) Hyperlipidemia Bilateral lower extremity edema Osteoporosis Right elbow pain Health care maintenance Right thigh pain Right hip pain Abnormal thyroid function test Flu vaccine need Post herpetic neuralgia Colon cancer screening Thyroid disease Knee pain Chest pain Nontoxic multinodular goiter History of goiter History of left heart catheterization Osteoarthritis GERD (gastroesophageal reflux disease) Hypothyroidism SABIAN (obstructive sleep apnea) Hypertension Dyskinesia of esophagus Chronic back pain Sciatica Surgical History history left thyroidectomy History of tubal ligation removal of bone fragments in right elbow. History of esophagogastroduodenoscopy (EGD) History of colonoscopy Family History Mother Hypertension Father CVA (cerebral vascular accident) Son Hypertension SABINA (obstructive sleep apnea) Social History Smoking Status: Never smoker alcohol intake: never substance use type: does not use what type of physical activity do you participate in: yoga frequency: daily HPI HPI Chief Complaint: ACUTE - PAIN IN NECK/PINCHED NERVE? Details: SONAL CONROY, is a 69 F who presents to the office today for neck pains / problems. She states that the pains started about 2 months ago (not sure exactly). She states that there was no acute injury / trauma or inciting incident that caused this. Pains started gradually. Pains are described as being on being both sides and the back of the neck. She states that the pains are constant pains that are aggravated with movements. There is no radiation into the upper extremities and she denies any numbness or tingling. No swelling. She has taken Tylenol which she states does help improve the pains for about 4-6 hours. She has been trying to stretch the neck. She has tried ice and heat as well as Salonpas patch. She denies any previous injuries or problems with her neck. ROS Const Constitutional: No body ache, chills, excessive sweating, fatigue, fever(s), frequent falls, headache(s), snoring, weight change, sleep problem (more content not included)... Normal [facility] Albumin to globulin ratioOrd ered By: Kranthi Kramer on 09-29-2024 Albumin/Globulin [Mass ratio] 1.1 {ratio} 0.9-2.4 [facility] Bilirubin, totalOrdered By: Kranthi Kramer on 09-29-2024 Bilirubin [Mass/Vol] 0.70 mg/dL 0.20-1.00 [facility] Comment on above: For patients on eltr ombopag therapy, use of Dimension [place] TBIL is not recommended. Blood urea nitrogen (BUN)/cr eatinine ratioOrdered By: Kranthi Kramer on 09-29-2024 Urea nitrogen/Creatinine [Mass ratio] 28.5 mg/mg High 10-20 [facility] Carbon dioxide measurementOr dered By: Kranthi Kramer on 09-29-2024 CO2 [Moles/Vol] 27.0 mmol/L 21.0-32.0 [facility] Chloride measurementOrdered By: Kranthi Kramer on 09-29-2024 Chloride [Moles/Vol] 112 mmol/L High 98-107 [facility] Comprehensive Metabolic Prof ilon 09-29-2024 Albumin [Mass/Vol] 3.7 g/dL Normal 3.2-5.0 [facility] Comment on above: Performed By: #### L 500.4100, L500.4050 #### [facility] [address] [place], [address] Albumin/Globulin [Mass ratio] 1.1 {ratio} Normal 0.9-2.4 [facility] Comment on above: Performed By: #### L 500.4100, L500.4050 #### [facility] [address] [place], [address] ALK P 58 U/L Normal 45-117 [facility] Comment on above: Performed By: #### L 500.4100, L500.4050 #### [facility] [address] [place], [address] ALT [Catalytic activity/Vol] 45 U/L Normal 13-56 [facility] Comment on above: Performed By: #### L 500.4100, L500.4050 #### [facility] [address] [place], [address] AST [Catalytic activity/Vol] 23 U/L Normal 15-37 [facility] Comment on above: Performed By: #### L 500.4100, L500.4050 #### [facility] [address] [place], [address] Bilirubin [Mass/Vol] 0.70 mg/dL Normal 0.20-1.00 [facility] Comment on above: Result Comment: For patients on eltrombopag therapy, use of Dimension [place] TBIL is not recommended. Performed By: #### L 500.4100, L500.4050 #### [facility] [address] [place], [address] BUN/CRE 28.5 RATIO High 10-20 [facility] Comment on above: Performed By: #### L 500.4100, L500.4050 #### [facility] [address] [place], [address] CA,Total 8.8 mg/dL Normal 8.5-10.1 [facility] Comment on above: Performed By: #### L 500.4100, L500.4050 #### [facility] [address] [place], [address] Chloride [Moles/Vol] 112 mmol/L High 98-107 [facility] Comment on above: Performed By: #### L 500.4100, L500.4050 #### [facility] [address] [place], [address] CO2 [Moles/Vol] 27.0 mmol/L Normal 21.0-32.0 [facility] Comment on above: Performed By: #### L 500.4100, L500.4050 #### [facility] [address] [place], [address] Creatinine [Mass/Vol] 0.74 mg/dL Normal 0.55-1.02 [facility] Comment on above: Result Comment: The validity of the calculated GFR GFRAA in patients over 70 years has not been determined. Clinical correlation is essential. Performed By: #### L 500.4100, L500.4050 #### [facility] [address] [place], [address] EST GFR - AA 100 mL/min Normal >60 [facility] Comment on above: Result Comment: Afri can Citizen Of [place] GFR Calc Performed By: #### L 500.4100, L500.4050 #### [facility] [address] [place], [address] GAP 3 Low 5-15 [facility] Comment on above: Performed By: #### L 500.4100, L500.4050 #### [facility] [address] [place], [address] GFR/1.73 sq M.predicted among non-blacks MDRD (S/P/Bld) [Vol rate/Area] 83 mL/min/{1.73_m2} Normal >60 [facility] Comment on above: Result Comment: Non- GFR Calc Performed By: #### L 500.4100, L500.4050 #### [facility] [address] [place], [address] Globulin (S) [Mass/Vol] 3.5 g/dL Normal 2.2-4.2 [facility] Comment on above: Performed By: #### L 500.4100, L500.4050 #### [facility] [address] [place], [address] Glucose [Mass/Vol] 77 mg/dL Normal 74-106 [facility] Comment on above: Performed By: #### L 500.4100, L500.4050 #### [facility] [address] [place], [address] Potassium [Moles/Vol] 3.9 mmol/L Normal 3.5-5.1 [facility] Comment on above: Performed By: #### L 500.4100, L500.4050 #### [facility] [address] [place], [address] Sodium [Moles/Vol] 142 mmol/L Normal 136-145 [facility] Comment on above: Performed By: #### L 500.4100, L500.4050 #### [facility] [address] [place], [address] T PROT 7.2 g/dL Normal 6.4-8.2 [facility] Comment on above: Performed By: #### L 500.4100, L500.4050 #### [facility] [address] [place], [address] Urea nitrogen [Mass/Vol] 21 mg/dL High 7-18 [facility] Comment on above: Performed By: #### L 500.4100, L500.4050 #### [facility] [address] [place], [address] Estimated glomerular filtrat ion rate (GFR) AmericanOrdered By: Kranthi Kramer on 09-29-2024 Estimated GFR (MDRD) Amer 100 mL/min >60 [facility] Comment on above: GFR Calc Glomerular filtration rate ( GFR) estimationOrdered By: Kranthi Kramer on 09-29-2024 Estimated GFR (MDRD) Non-Af Amer 83 mL/min >60 [facility] Comment on above: Non- GFR Calc Glucose measurementOrdered B y: Kranthi Kramer on 09-29-2024 Glucose [Mass/Vol] 77 mg/dL 74-106 [facility] High density lipoprotein (HD L) measurementOrdered By: Kranthi Kramer on 09-29-2024 Cholesterol in HDL [Mass/Vol] 66 mg/dL >40 [facility] Comment on above: The drugs N-Acetylcy steine and Metamizole may falsely depress this assay. Reference Range HDL <40 mg/dL Low HDL Cholesterol HDL >or= 60 mg/dL High HDL Cholesterol Internal Medicine Office Vis iton 09-29-2024 Internal Medicine Office Visit [facility] [address] [place] [id number] OFFICE VISIT Date of Service: 09/29/24 MR#: [id number] Acct: [id number] Name: SONAL CONROY Rep #: [id number] : 1955 Provider: Dr. Kranthi nelson MD Age/Sex: 69/F Location: [facility] Status: Signed Intake Vital Signs 05/29/24 15:25 07/08/24 07:44 09/29/24 10:44 Height 5 ft 3 in 5 ft 3 in 5 ft 3 in Weight: 163 lb BMI 28.8 BP 110/64 Blood Pressure Location Lt brachial Position Sitting Respiration 14 Pulse 52 L Pulse Source Monitor Temp 97.1 F L Temp Source Temporal Pulse Oximetry (%) 95 Oxygen Delivery Method room air Intake Visit Reasons: 4 M FU Chief Complaint: Follow-up chronic conditions Oral Communication Instructor Required: No Is patient in pain?: No Allergies ropinirole Allergy (Intermediate, Verified 09/29/24 10:36) rash acetaminophen (From Vicodin) Allergy (Verified 09/29/24 10:36) Other hydrocodone bitartrate (From Vicodin) Allergy (Verified 09/29/24 10:36) Other Penicillins Allergy (Verified 09/29/24 10:36) Rash Medications ???Medication ???Instructions ???Recorded ???Confirmed ???Type ascorbic acid (vitamin C) 500 mg 500 mg PO DAILY 10/13/19 09/29/24 History capsule cholecalciferol (vitamin D3) 50 2,000 unit PO DAILY 10/13/19 09/29/24 History mcg (2,000 unit) tablet mervat.stocking,thigh,reg,med #2 ea 09/07/20 09/29/24 Rx cetirizine 10 mg tablet (24Hour 5 mg (1/2 x 10 mg) PO DAILY PRN 02/15/21 09/29/24 Rx Allergy) allergy symptoms #30 tabs Handicap Placard #1 ea 01/25/22 09/29/24 Rx arm brace (Elbow Compression #1 ea 11/23/22 09/29/24 Rx Sleeve) zoledronic acid 5 mg/100 mL in 1 ea .Route .yearly #100 mL 09/10/23 09/29/24 Rx mannitol 5 %-water intravenous piggybck metoprolol succinate 50 mg 50 mg PO QDAY #90 tabs 11/01/23 09/29/24 Rx tablet,extended release 24 hr pantoprazole 40 mg tablet,delayed 40 mg PO DAILY #90 tabs 08/18/24 09/29/24 Rx release atorvastatin 20 mg tablet 10 mg (1/2 x 20 mg) PO DAILY #90 09/29/24 Rx tabs Have you fallen in the past year?: No PFSH Medical History Chills URI (upper respiratory infection) Hyperlipidemia Bilateral lower extremity edema Osteoporosis Right elbow pain Health care maintenance Right thigh pain Right hip pain Abnormal thyroid function test Flu vaccine need Post herpetic neuralgia Colon cancer screening Thyroid disease Knee pain Chest pain Nontoxic multinodular goiter History of goiter History of left heart catheterization Osteoarthritis GERD (gastroesophageal reflux disease) Hypothyroidism SABINA (obstructive sleep apnea) Hypertension Dyskinesia of esophagus Chronic back pain Sciatica Surgical History history left thyroidectomy History of tubal ligation removal of bone fragments in right elbow. History of esophagogastroduodenoscopy (EGD) History of colonoscopy Family History Mother Hypertension Father CVA (cerebral vascular accident) Son Hypertension SABINA (obstructive sleep apnea) Social History Smoking Status: Never smoker alcohol intake: never substance use type: does not use what type of physical activity do you participate in: yoga frequency: daily HPI HPI Chief Complaint: Follow-up chronic conditions Details: SONAL CONROY, is a 69 F who presents to the office today for follow-up of her chronic conditions. No acute concerns at this time. History of hyperlipidemia currently on atorvastatin. She states that over the last 2 months, she has been taking half of current prescription which per patient is a 20 mg pill. She did this due to leg cramps which have improved on current regimen. Tries to stay active. History of hypertension, blood pressure today at 110/64. Heart rate is low but she is asymptomatic. No syncopal and near syncopal episodes. Other chronic medical conditions are stable. ROS Const Constitutional: No body ache, chills, excessive sweating, fatigue, fever(s), frequent falls, headache(s), snoring, weakness, sleep problems or change in appetite Eyes Eyes: No blurry vision, change in vision, floaters, visual disturbances, eye pain or Light sensitivity ENT ENT: No abnormal hearing, ear or mastoid pain, tinnitus, balance problems, nosebleed/epistaxis, nasal congestion, headache(s), neck pain or sore throat Resp Respiratory: No cough, excessive phlegm production, pain on inspiration, shortness of breath, snoring or wheezing Cardio Cardiology: No chest pain at rest, chest pain with exertion, excessive sweating, shortness o (more content not included)... Normal [facility] - Chemistry and C hemistry - challengeOrdered By: Kranthi Kramer on 09-29-2024 AST [Catalytic activity/Vol] 23 U/L 15- [facility] Lipid Profileon 09-29-2024 Cholesterol [Mass/Vol] 172 mg/dL Normal 200 [facility] Comment on above: Result Comment: <200 mg/dL Desirable 200-240 mg/dL Borderline >240 mg/dL High Risk Performed By: #### L 500.4100, L500.4050 #### [facility] [address] [place], [address] Cholesterol in HDL [Mass/Vol] 66 mg/dL Normal [facility] Comment on above: Result Comment: The drugs N-Acetylcysteine and Metamizole may falsely depress this assay. Reference Range HDL <40 mg/dL Low HDL Cholesterol HDL >or= 60 mg/dL High HDL Cholesterol Performed By: #### L 500.4100, L500.4050 #### [facility] [address] [place], [address] Cholesterol in LDL [Mass/Vol] 87 mg/dL Normal 0-130 [facility] Comment on above: Performed By: #### L 500.4100, L500.4050 #### [facility] [address] [place], [address] Cholesterol in VLDL [Mass/Vol] 19 mg/dL Normal 5-40 [facility] Comment on above: Performed By: #### L 500.4100, L500.4050 #### [facility] [address] [place], [address] Triglyceride [Mass/Vol] 93 mg/dL Normal [facility] Comment on above: Result Comment: The drugs N-Acetylcysteine and Metamizole may falsely depress this assay. Serum Triglycerides Reference Interval Normal <150 mg/dL Borderline high 150 - 199 mg/dL High 200 - 499 mg/dL Very High > or = 500 mg/dL Performed By: #### L 500.4100, L500.4050 #### [facility] [address] [place], [address] Low density lipoprotein (LDL ) cholesterol measurementOrdered By: Kranthi Kramer on 09-29-2024 Cholesterol in LDL [Mass/Vol] 87 mg/dL 0-130 [facility] Potassium measurementOrdered By: Kranthi Kramer on 09-29-2024 Potassium [Moles/Vol] 3.9 mmol/L 3.5-5.1 [facility] Serum anion gap measurementO rdered By: Kranthi Kramer on 09-29-2024 Anion gap [Moles/Vol] 3 mmol/L Low 5-15 [facility] Serum globulin measurementOr dered By: Kranthi Kramer on 09-29-2024 Globulin (S) [Mass/Vol] 3.5 g/dL 2.2-4.2 [facility] Serum or plasma alanine aiken otransferase (ALT) measurementOrdered By: Kranthi Kramer on 09-29-2024 ALT [Catalytic activity/Vol] 45 U/L 13-56 [facility] Serum or plasma albumin vipul urement (mass/volume)Ordered By: Kranthi Kramer on 09-29-2024 Albumin [Mass/Vol] 3.7 g/dL 3.2-5.0 [facility] Serum or plasma alkaline rebecca sphatase measurementOrdered By: Kranthi Kramer on 09-29-2024 ALP [Catalytic activity/Vol] 58 U/L 45-117 [facility] Serum or plasma calcium vipul urement (mass/volume)Ordered By: Kranthi Kramer on 09-29-2024 Calcium [Mass/Vol] 8.8 mg/dL 8.5-10.1 [facility] Serum or plasma cholesterol measurement (mass/volume)Ordered By: Kranthi Kramer on 09-29-2024 Cholesterol [Mass/Vol] 172 mg/dL <200 [facility] Comment on above: <200 mg/dL Desirable 200-240 mg/dL Borderline >240 mg/dL High Risk Serum or plasma creatinine m easurement (mass/volume)Ordered By: Kranthi Kramer on 09-29-2024 Creatinine [Mass/Vol] 0.74 mg/dL 0.55-1.02 [facility] Comment on above: The validity of the calculated GFR & GFRAA in patients over 70 years has not been determined. Clinical correlation is essential. Serum or plasma urea nitroge n measurement (mass/volume)Ordered By: Kranthi Kramer on 09-29-2024 Urea nitrogen [Mass/Vol] 21 mg/dL High 7-18 [facility] Sodium levelOrdered By: Clare Kramer on 09-29-2024 Sodium [Moles/Vol] 142 mmol/L 136-145 [facility] Total proteinOrdered By: Stephane Kramer on 09-29-2024 Protein [Mass/Vol] 7.2 g/dL 6.4-8.2 [facility] Triglycerides measurementOrd ered By: Kranthi Kramer on 09-29-2024 Triglyceride [Mass/Vol] 93 mg/dL <199 [facility] Comment on above: The drugs N-Acetylcy steine and Metamizole may falsely depress this assay.Serum Triglycerides Reference Interval Normal <150 mg/dL Borderline high 150 - 199 mg/dL High 200 - 499 mg/dL Very High > or = 500 mg/dL Very low density lipoprotein (VLDL) cholesterol measurementOrdered By: Kranthi Hectorromain on 09-29-2024 VLDL Cholesterol 19 mg/dL 5-40 [facility] Pulmonary Visit Reporton Pulmonary Visit Report [facility] of [address] [place] [address] OFFICE VISIT Date of Service: 07/08/24 MR#: [id number] Acct: [id number] Name: CHUNGSONAL Rep #: [id number] : 1955 Provider: PAT Ann Age/Sex: 69/F Location: [facility] Status: Signed Assessment and Plan Assessment and Plan (1) SABINA (obstructive sleep apnea): Status: Chronic Plan: She is using and benefiting from Pap therapy. No indication for titration study at this time. Contact the office for any new or worsening symptoms in the meantime. Follow-up in 1 year. Plan Details Follow Up: 1 Year ([facility]) HPI 1 Y FU Chief Complaint: Routine follow-up HPI Comments Details: This patient presents to the office today for follow-up of her obstructive sleep apnea. She is ambulatory, currently on room air. She has not recently been seen in the ED or urgent care for any respiratory illness. She has not required any antibiotics or prednisone for any breathing problems. She denies any difficulty with shortness of breath. She denies any cough, sputum production or hemoptysis. She has not had any wheezing, chest tightness, chest pain or palpitations. She denies any fever, chills or body aches. She wakes up feeling rested and refreshed. She is no longer having morning headaches. She is not having difficulty with mask leaks or dry mouth. She is not having excessive nocturia. Compliance report for the past 30 days shows 100% compliance with an average use of 6 hours and 53 minutes per night. Current setting is auto BiPAP 5 to 25 cm of water with pressures being averaged at 10.1-12.6/6 0.1 to 8.6 cm of water. Residual AHI of 2.4 events per hour. Leaks do not appear to be problematic. Intake Vital Signs 07/24/23 08:04 02/27/24 09:50 05/29/24 15:25 07/08/24 07:44 Height 5 ft 3 in 5 ft 3 in 5 ft 3 in 5 ft 3 in Weight: 164 lb BMI 29.0 BP 134/76 H Blood Pressure Location Rt brachial Position Sitting Respiration 18 Pulse 59 L Pulse Source Monitor Temp 97.6 F L Temperature Source Temporal Artery Pulse Oximetry (%) 96 Oxygen Delivery Method room air Intake Visit Reasons: 1 Y FU Oral Communication Instructor Required: No DME Vendor: cpap- [employer] Accompanied by: Self Is patient in pain?: No Allergies ropinirole Allergy (Intermediate, Verified 07/08/24 10:55) rash acetaminophen (From Vicodin) Allergy (Verified 07/08/24 10:55) Other hydrocodone bitartrate (From Vicodin) Allergy (Verified 07/08/24 10:55) Other Penicillins Allergy (Verified 07/08/24 10:55) Rash Medications ???Medication ???Instructions ???Recorded ???Confirmed ???Type ascorbic acid (vitamin C) 500 mg 500 mg PO DAILY 10/13/19 07/08/24 History capsule cholecalciferol (vitamin D3) 50 2,000 unit PO DAILY 10/13/19 07/08/24 History mcg (2,000 unit) tablet mervat.stocking,thigh,reg,med #2 ea 09/07/20 07/08/24 Rx cetirizine 10 mg tablet (24Hour 5 mg (1/2 x 10 mg) PO DAILY PRN 02/15/21 07/08/24 Rx Allergy) allergy symptoms #30 tabs Handicap Placard #1 ea 01/25/22 07/08/24 Rx arm brace (Elbow Compression #1 ea 11/23/22 07/08/24 Rx Sleeve) zoledronic acid 5 mg/100 mL in 1 ea .Route .yearly #100 mL 09/10/23 07/08/24 Rx mannitol 5 %-water intravenous piggybck metoprolol succinate 50 mg 50 mg PO QDAY #90 tabs 11/01/23 07/08/24 Rx tablet,extended release 24 hr pantoprazole 40 mg tablet,delayed 40 mg PO DAILY #120 tabs 02/27/24 07/08/24 Rx release atorvastatin 20 mg tablet 20 mg PO DAILY #90 tabs 06/19/24 07/08/24 Rx Have you fallen in the past year?: No PFSH Medical History Chills URI (upper respiratory infection) Hyperlipidemia Bilateral lower extremity edema Osteoporosis Right elbow pain Health care maintenance Right thigh pain Right hip pain Abnormal thyroid function test Flu vaccine need Post herpetic neuralgia Colon cancer screening Thyroid disease Knee pain Chest pain Nontoxic multinodular goiter History of goiter History of left heart catheterization Osteoarthritis GERD (gastroesophageal reflux disease) Hypothyroidism SABINA (obstructive sleep apnea) Hypertension Dyskinesia of esophagus Chronic back pain Sciatica Surgical History history left thyroidectomy History of tubal ligation removal of bone fragments in right elbow. History of esophagogastroduodenoscopy (EGD) History of colonoscopy Family History Mother Hypertension Father CVA (cerebral vascular accident) Son Hypertension SABINA (obstructive sleep apnea) Social History Luciain (more content not included)... Normal [facility] Internal Medicine Office Vis iton 05-29-2024 Internal Medicine Office Visit [facility] [address] [place] [address] [place] [address] OFFICE VISIT Date of Service: 05/29/24 MR#: [id number] Acct: [id number] Name: SONAL CONROY Rep #: [id number] : 1955 Provider: Dr. Kranthi nelson MD Age/Sex: 69/F Location: [facility] Status: Signed Intake Vital Signs 02/27/24 09:50 05/29/24 15:25 Height 5 ft 3 in 5 ft 3 in Weight: 165 lb BMI 29.2 BP 126/72 H Blood Pressure Location Lt brachial Position Sitting Respiration 17 Pulse 80 Pulse Source Monitor Temp 98.6 F Temp Source Temporal Pulse Oximetry (%) 97 Oxygen Delivery Method room air Intake Visit Reasons: 3 m fu Chief Complaint: 3 m fu Is patient in pain?: No Allergies ropinirole Allergy (Intermediate, Verified 05/29/24 15:24) rash acetaminophen (From Vicodin) Allergy (Verified 05/29/24 15:24) Other hydrocodone bitartrate (From Vicodin) Allergy (Verified 05/29/24 15:24) Other Penicillins Allergy (Verified 05/29/24 15:24) Rash Medications ???Medication ???Instructions ???Recorded ???Confirmed ???Type ascorbic acid (vitamin C) 500 mg 500 mg PO DAILY 10/13/19 05/29/24 History capsule cholecalciferol (vitamin D3) 50 2,000 unit PO DAILY 10/13/19 05/29/24 History mcg (2,000 unit) tablet mervat.stocking,thigh,reg,med #2 ea 09/07/20 05/29/24 Rx cetirizine 10 mg tablet (24Hour 5 mg (1/2 x 10 mg) PO DAILY PRN 02/15/21 05/29/24 Rx Allergy) allergy symptoms #30 tabs Handicap Placard #1 ea 01/25/22 05/29/24 Rx arm brace (Elbow Compression #1 ea 11/23/22 05/29/24 Rx Sleeve) zoledronic acid 5 mg/100 mL in 1 ea .Route .yearly #100 mL 09/10/23 05/29/24 Rx mannitol 5 %-water intravenous piggybck metoprolol succinate 50 mg 50 mg PO QDAY #90 tabs 11/01/23 05/29/24 Rx tablet,extended release 24 hr pantoprazole 40 mg tablet,delayed 40 mg PO DAILY #120 tabs 02/27/24 05/29/24 Rx release atorvastatin 20 mg tablet 20 mg PO DAILY #60 tabs 02/28/24 05/29/24 Rx Have you fallen in the past year?: No PFSH Medical History Chills URI (upper respiratory infection) Hyperlipidemia Bilateral lower extremity edema Osteoporosis Right elbow pain Health care maintenance Right thigh pain Right hip pain Abnormal thyroid function test Flu vaccine need Post herpetic neuralgia Colon cancer screening Thyroid disease Knee pain Chest pain Nontoxic multinodular goiter History of goiter History of left heart catheterization Osteoarthritis GERD (gastroesophageal reflux disease) Hypothyroidism SABINA (obstructive sleep apnea) Hypertension Dyskinesia of esophagus Chronic back pain Sciatica Surgical History history left thyroidectomy History of tubal ligation removal of bone fragments in right elbow. History of esophagogastroduodenoscopy (EGD) History of colonoscopy Family History Mother Hypertension Father CVA (cerebral vascular accident) Son Hypertension SABINA (obstructive sleep apnea) Social History Smoking Status: Never smoker alcohol intake: never substance use type: does not use what type of physical activity do you participate in: yoga frequency: daily HPI HPI Chief Complaint: 3 m fu Details: SONAL CONROY, is a 69 F who presents to the office today for follow-up of her chronic medical conditions. No acute concerns at this time. Started on atorvastatin due to worsening cholesterol. Has tolerated medication well. No muscle pain or weakness. LDL with very good response. Stable liver function at recent check. History of hypertension, blood pressure today is at 126/72 also down from her last visit. No chest pain, palpitation or shortness of breath reported. Other chronic medical conditions are stable. ROS Const Constitutional: No body ache, chills, excessive sweating, fatigue, fever(s), frequent falls, headache(s), snoring, weight change, sleep problems, abnormal sleep pattern or change in appetite Eyes Eyes: No blurry vision, change in vision, eye pain or Light sensitivity ENT ENT: No abnormal hearing, ear or mastoid pain, tinnitus, nasal congestion, headache(s), neck pain or sore throat Resp Respiratory: No cough, shortness of breath, snoring or wheezing Cardio Cardiology: No chest pain at rest, chest pain with exertion, excessive sweating, shortness of breath, dyspnea on exertion, lightheadedness, orthopnea or palpitations Gastro GI: No abdominal pain, change in bowel habits, constipation, cramping, diarrhea, nausea/dyspepsia or vomiting Genitourinary-Female: No burning urination, painful urination, urinary incontinence, urinary frequency (more content not included)... Normal [facility] Basophil percentageOrdered B y: Kranthi Kramer on 09-03-2023 Cholesterol [Mass/Vol] 213 mg/dL <200 [facility] Comment on above: <200 mg/dL Desirable 200-240 mg/dL Borderline >240 mg/dL High Risk Triglyceride [Mass/Vol] 100 mg/dL <199 [facility] Comment on above: The drugs N-Acetylcy steine and Metamizole may falsely depress this assay.Serum Triglycerides Reference Interval Normal <150 mg/dL Borderline high 150 - 199 mg/dL High 200 - 499 mg/dL Very High > or = 500 mg/dL Serum or plasma cholesterol in HDL measurement (mass/volume)Ordered By: Kranthi Kramer on 09-03-2023 Cholesterol in HDL [Mass/Vol] 60 mg/dL >40 [facility] Comment on above: The drugs N-Acetylcy steine and Metamizole may falsely depress this assay. Reference Range HDL <40 mg/dL Low HDL Cholesterol HDL >or= 60 mg/dL High HDL Cholesterol Serum or plasma cholesterol in VLDL measurement (mass/volume)Ordered By: Kranthi Kramer on 09-03-2023 Cholesterol in VLDL [Mass/Vol] 20 mg/dL 5-40 [facility] Serum or plasma low density lipoprotein (LDL) cholesterol measurement (mass/volume)Ordered By: Kranthi Kramer on 09-03-2023 Cholesterol in LDL [Mass/Vol] 133 mg/dL 0-130 [facility] Basophil percentageOrdered B y: Kranthi Kramer on 06-11-2023 Bilirubin [Mass/Vol] 0.60 mg/dL 0.20-1.00 [facility] Comment on above: For patients on eltr ombopag therapy, use of Dimension [place] TBIL is not recommended. Chloride [Moles/Vol] 108 mmol/L 98-107 [facility] Cholesterol [Mass/Vol] 232 mg/dL <200 [facility] Comment on above: <200 mg/dL Desirable 200-240 mg/dL Borderline >240 mg/dL High Risk Glucose [Mass/Vol] 70 mg/dL 74-106 [facility] Potassium [Moles/Vol] 3.9 mmol/L 3.5-5.1 [facility] Protein [Mass/Vol] 7.4 g/dL 6.4-8.2 [facility] Sodium [Moles/Vol] 142 mmol/L 136-145 [facility] Triglyceride [Mass/Vol] 113 mg/dL <199 [facility] Comment on above: The drugs N-Acetylcy steine and Metamizole may falsely depress this assay.Serum Triglycerides Reference Interval Normal <150 mg/dL Borderline high 150 - 199 mg/dL High 200 - 499 mg/dL Very High > or = 500 mg/dL Laboratory - Chemistry and C hemistry - challengeOrdered By: Kranthi Kramer on 06-11-2023 ALP [Catalytic activity/Vol] 67 U/L 45-117 [facility] ALT [Catalytic activity/Vol] 37 U/L 13-56 [facility] CO2 [Moles/Vol] 27.0 mmol/L 21.0-32.0 [facility] Globulin (S) [Mass/Vol] 3.7 g/dL 2.2-4.2 [facility] Urea nitrogen/Creatinine [Mass ratio] 33.0 mg/mg 10-20 [facility] No Panel InformationOrdered By: Kranthi Kramer on 06-11-2023 Estimated GFR (MDRD) Amer 112 mL/min >60 [facility] Comment on above: GFR Calc Estimated GFR (MDRD) Non-Af Amer 93 mL/min >60 [facility] Comment on above: Non- GFR Calc Vitamin D 25-Hydroxy 56.7 ng/mL [facility] Comment on above: Vitamin D 25(OH) Sta tus Range Deficiency <20 ng/mL (50nmol/L) Insufficiency 20 - 30 ng/mL (50 - 75 nmol/L) Sufficiency 30 - 100 ng/mL (75 - 250 nmol/L) Toxicity >100 ng/mL (>250 nmol/L) Serum or plasma albumin vipul urement (mass/volume)Ordered By: Kranthi Kramer on 06-11-2023 Albumin [Mass/Vol] 3.7 g/dL 3.2-5.0 [facility] Serum or plasma albumin/glob ulin mass ratioOrdered By: Kranthi Kramer on 06-11-2023 Albumin/Globulin [Mass ratio] 1.0 {ratio} 0.9-2.4 [facility] Serum or plasma calcium vipul urement (mass/volume)Ordered By: Kranthi Kramer on 06-11-2023 Calcium [Mass/Vol] 9.0 mg/dL 8.5-10.1 [facility] Serum or plasma cholesterol in HDL measurement (mass/volume)Ordered By: Kranthi Kramer on 06-11-2023 Cholesterol in HDL [Mass/Vol] 59 mg/dL >40 [facility] Comment on above: The drugs N-Acetylcy steine and Metamizole may falsely depress this assay. Reference Range HDL <40 mg/dL Low HDL Cholesterol HDL >or= 60 mg/dL High HDL Cholesterol Serum or plasma cholesterol in VLDL measurement (mass/volume)Ordered By: Kranthi Kramer on 06-11-2023 Cholesterol in VLDL [Mass/Vol] 23 mg/dL 5-40 [facility] Serum or plasma creatinine m easurement (mass/volume)Ordered By: Kranthi Kramer on 06-11-2023 Creatinine [Mass/Vol] 0.67 mg/dL 0.55-1.02 [facility] Comment on above: The validity of the calculated GFR & GFRAA in patients over 70 years has not been determined. Clinical correlation is essential. Serum or plasma low density lipoprotein (LDL) cholesterol measurement (mass/volume)Ordered By: Kranthi Kramer on 06-11-2023 Cholesterol in LDL [Mass/Vol] 150 mg/dL 0-130 [facility] Serum or plasma urea nitroge n measurement (mass/volume)Ordered By: Kranthi Kramer on 06-11-2023 Urea nitrogen [Mass/Vol] 22 mg/dL 7-18 [facility] Thin prep Papanicolaou smear with manual screeningOrdered By: Kranthi Kramer on 06-11-2023 Thin prep Papanicolaou smear with manual screening 28 U/L 15-37 [facility] Thin prep Papanicolaou smear with manual screening 7 5-15 [facility] Absolute lymphocyte countOrd ered By: Dr. Kramer on 10-30-2022 Lymphocytes Auto (Unsp spec) [#/Vol] 1.99 10*3/uL 0.83-4.51 [facility] Basophil percentageOrdered B y: Dr. Kramer on 10-30-2022 Basophils/100 WBC (Bld) 1.1 % 0-1 [facility] Chloride [Moles/Vol] 107 mmol/L 98-107 [facility] Eosinophils/100 WBC (Bld) 3.5 % 0-5 [facility] Glucose [Mass/Vol] 84 mg/dL 74-106 [facility] Neutrophils (Bld) [#/Vol] 3.7 10*3/uL 2.0-7.7 [facility] Neutrophils/100 WBC (Bld) 57.5 % 47-70 [facility] Potassium [Moles/Vol] 4.1 mmol/L 3.5-5.1 [facility] Sodium [Moles/Vol] 143 mmol/L 136-145 [facility] WBC (Bld) [#/Vol] 6.3 10*3/uL 4.4-11.0 [facility] Blood erythrocytes count (nu mber/volume)Ordered By: Dr. Kramer on 10-30-2022 RBC (Bld) [#/Vol] 4.44 10*6/uL 4.2-5.4 [facility] Blood hemoglobin measurement (mass/volume)Ordered By: Dr. Kramer on 10-30-2022 Hemoglobin (Bld) [Mass/Vol] 13.3 g/dL 12.0-15.0 [facility] Blood lymphocytes/100 leukoc ytesOrdered By: Dr. Kramer on 10-30-2022 Lymphocytes/100 WBC (Bld) 31.4 % 19-41 [facility] Blood monocytes/100 leukocyt esOrdered By: Dr. Kramer on 10-30-2022 Monocytes/100 WBC (Bld) 6.2 % 0-10 [facility] Blood platelet mean volumeOr dered By: Dr. Kramer on 10-30-2022 Platelet mean volume (Bld) [Entitic vol] 10.4 fL 6.2-12.0 [facility] Determination of erythrocyte mean corpuscular volume (MCV)Ordered By: Dr. Kramer on 10-30-2022 MCV (RBC) [Entitic vol] 94.4 fL 81-99 [facility] Hematocrit Auto (Bld) [Volum e fraction]Ordered By: Dr. Kramer on 10-30-2022 Hematocrit (Bld) [Volume fraction] 41.9 % 37-47 [facility] Laboratory - Chemistry and C hemistry - challengeOrdered By: Dr. Kramer on 10-30-2022 CO2 [Moles/Vol] 29.0 mmol/L 21.0-32.0 [facility] Urea nitrogen/Creatinine [Mass ratio] 33.4 mg/mg 10-20 [facility] Laboratory - Hematology and Cell countsOrdered By: Dr. Kramer on 10-30-2022 Erythrocyte distribution width (RBC) [Entitic vol] 43.7 fL 35.1-43.9 [facility] Erythrocyte distribution width (RBC) [Ratio] 12.7 % 11.6-14.6 [facility] Immature granulocytes/100 WBC (Bld) 0.300 % 0.0-0.9 [facility] Comment on above: IG% - Immature Granu locytes (promyelocytes, myelocytes and metamyelocytes) > 1% indicates that a LEFT SHIFT is Present. MCH (RBC) [Entitic mass] 30.0 pg 27.0-32.0 [facility] Nucleated RBC/100 WBC (Bld) [Ratio] 0 [facility] [Mass/Vol]Or dered By: Dr. Kramer on 10-30-2022 MCHC (RBC) [Mass/Vol] 31.7 g/dL 32-36 [facility] No Panel InformationOrdered By: Dr. Kramer on 10-30-2022 Estimated GFR (MDRD) Amer 103 mL/min >60 [facility] Comment on above: GFR Calc Estimated GFR (MDRD) Non-Af Amer 85 mL/min >60 [facility] Comment on above: Non- GFR Calc Platelets bldOrdered By: Dr. Kramer on 10-30-2022 Platelets (Bld) [#/Vol] 269 10*3/uL 150-450 [facility] Serum or plasma calcium vipul urement (mass/volume)Ordered By: Dr. Kramer on 10-30-2022 Calcium [Mass/Vol] 9.0 mg/dL 8.5-10.1 [facility] Serum or plasma creatinine m easurement (mass/volume)Ordered By: Dr. Kramer on 10-30-2022 Creatinine [Mass/Vol] 0.72 mg/dL 0.55-1.02 [facility] Comment on above: The validity of the calculated GFR & GFRAA in patients over 70 years has not been determined. Clinical correlation is essential. Serum or plasma urea nitroge n measurement (mass/volume)Ordered By: Dr. Kramer on 10-30-2022 Urea nitrogen [Mass/Vol] 24 mg/dL 7-18 [facility] Thin prep Papanicolaou smear with manual screeningOrdered By: Dr. Kramer on 10-30-2022 Thin prep Papanicolaou smear with manual screening 7 5-15 [facility] Absolute lymphocyte countOrd ered By: Dr. Kramer on 07-27-2022 Lymphocytes Auto (Unsp spec) [#/Vol] 2.18 10*3/uL 0.83-4.51 [facility] Basophil percentageOrdered B y: Dr. Kramer on 07-27-2022 Basophils/100 WBC (Bld) 0.9 % 0-1 [facility] Bilirubin [Mass/Vol] 0.30 mg/dL 0.20-1.00 [facility] Comment on above: For patients on eltr ombopag therapy, use of Dimension [place] TBIL is not recommended. Chloride [Moles/Vol] 110 mmol/L 98-107 [facility] Cholesterol [Mass/Vol] 214 mg/dL <200 [facility] Comment on above: <200 mg/dL Desirable 200-240 mg/dL Borderline >240 mg/dL High Risk Eosinophils/100 WBC (Bld) 3.0 % 0-5 [facility] Glucose [Mass/Vol] 96 mg/dL 74-106 [facility] Neutrophils (Bld) [#/Vol] 4.0 10*3/uL 2.0-7.7 [facility] Neutrophils/100 WBC (Bld) 57.4 % 47-70 [facility] Potassium [Moles/Vol] 3.6 mmol/L 3.5-5.1 [facility] Protein [Mass/Vol] 7.1 g/dL 6.4-8.2 [facility] Sodium [Moles/Vol] 142 mmol/L 136-145 [facility] Triglyceride [Mass/Vol] 152 mg/dL <199 [facility] Comment on above: The drugs N-Acetylcy steine and Metamizole may falsely depress this assay.Serum Triglycerides Reference Interval Normal <150 mg/dL Borderline high 150 - 199 mg/dL High 200 - 499 mg/dL Very High > or = 500 mg/dL WBC (Bld) [#/Vol] 7.0 10*3/uL 4.4-11.0 [facility] Blood erythrocytes count (nu mber/volume)Ordered By: Dr. Kramer on 07-27-2022 RBC (Bld) [#/Vol] 4.39 10*6/uL 4.2-5.4 [facility] Blood hemoglobin measurement (mass/volume)Ordered By: Dr. Kramer on 07-27-2022 Hemoglobin (Bld) [Mass/Vol] 13.6 g/dL 12.0-15.0 [facility] Blood lymphocytes/100 leukoc ytesOrdered By: Dr. Kramer on 07-27-2022 Lymphocytes/100 WBC (Bld) 31.1 % 19-41 [facility] Blood monocytes/100 leukocyt esOrdered By: Dr. Kramer on 07-27-2022 Monocytes/100 WBC (Bld) 7.3 % 0-10 [facility] Blood platelet mean volumeOr dered By: Dr. Kramer on 07-27-2022 Platelet mean volume (Bld) [Entitic vol] 10.3 fL 6.2-12.0 [facility] Determination of erythrocyte mean corpuscular volume (MCV)Ordered By: Dr. Kramer on 07-27-2022 MCV (RBC) [Entitic vol] 92.5 fL 81-99 [facility] Hematocrit Auto (Bld) [Volum e fraction]Ordered By: Dr. Kramer on 07-27-2022 Hematocrit (Bld) [Volume fraction] 40.6 % 37-47 [facility] Laboratory - Chemistry and C hemistry - challengeOrdered By: Dr. Kramer on 07-27-2022 ALP [Catalytic activity/Vol] 67 U/L 45-117 [facility] ALT [Catalytic activity/Vol] 48 U/L 13-56 [facility] CO2 [Moles/Vol] 28.0 mmol/L 21.0-32.0 [facility] Globulin (S) [Mass/Vol] 3.4 g/dL 2.2-4.2 [facility] Urea nitrogen/Creatinine [Mass ratio] 17.4 mg/mg 10-20 [facility] Laboratory - Hematology and Cell countsOrdered By: Dr. Kramer on 07-27-2022 Erythrocyte distribution width (RBC) [Entitic vol] 41.6 fL 35.1-43.9 [facility] Erythrocyte distribution width (RBC) [Ratio] 12.2 % 11.6-14.6 [facility] Immature granulocytes/100 WBC (Bld) 0.300 % 0.0-0.9 [facility] Comment on above: IG% - Immature Granu locytes (promyelocytes, myelocytes and metamyelocytes) > 1% indicates that a LEFT SHIFT is Present. MCH (RBC) [Entitic mass] 31.0 pg 27.0-32.0 [facility] Nucleated RBC/100 WBC (Bld) [Ratio] 0 % 0-5 [facility] MCHC Auto (RBC) [Mass/Vol]Or dered By: Dr. Kramer on 07-27-2022 MCHC (RBC) [Mass/Vol] 33.5 g/dL 32-36 [facility] No Panel InformationOrdered By: Dr. Kramer on 07-27-2022 Estimated GFR (MDRD) Amer 64 mL/min >60 [facility] Comment on above: GFR Calc Estimated GFR (MDRD) Non-Af Amer 53 mL/min >60 [facility] Comment on above: Non- GFR Calc Platelets bldOrdered By: Dr. Kramer on 07-27-2022 Platelets (Bld) [#/Vol] 271 10*3/uL 150-450 [facility] Serum or plasma albumin vipul urement (mass/volume)Ordered By: Dr. Kramer on 07-27-2022 Albumin [Mass/Vol] 3.7 g/dL 3.2-5.0 [facility] Serum or plasma albumin/glob ulin mass ratioOrdered By: Dr. Kramer on 07-27-2022 Albumin/Globulin [Mass ratio] 1.1 {ratio} 0.9-2.4 [facility] Serum or plasma calcium vipul urement (mass/volume)Ordered By: Dr. Kramer on 07-27-2022 Calcium [Mass/Vol] 8.6 mg/dL 8.5-10.1 [facility] Serum or plasma cholesterol in HDL measurement (mass/volume)Ordered By: Dr. Kramer on 07-27-2022 Cholesterol in HDL [Mass/Vol] 58 mg/dL >40 [facility] Comment on above: The drugs N-Acetylcy steine and Metamizole may falsely depress this assay. Reference Range HDL <40 mg/dL Low HDL Cholesterol HDL >or= 60 mg/dL High HDL Cholesterol Serum or plasma cholesterol in VLDL measurement (mass/volume)Ordered By: Dr. Kramer on 07-27-2022 Cholesterol in VLDL [Mass/Vol] 30 mg/dL 5-40 [facility] Serum or plasma creatinine m easurement (mass/volume)Ordered By: Dr. Kramer on 07-27-2022 Creatinine [Mass/Vol] 1.09 mg/dL 0.55-1.02 [facility] Comment on above: The validity of the calculated GFR & GFRAA in patients over 70 years has not been determined. Clinical correlation is essential. Serum or plasma low density lipoprotein (LDL) cholesterol measurement (mass/volume)Ordered By: Dr. Kramer on 07-27-2022 Cholesterol in LDL [Mass/Vol] 126 mg/dL 0-130 [facility] Serum or plasma urea nitroge n measurement (mass/volume)Ordered By: Dr. Kramer on 07-27-2022 Urea nitrogen [Mass/Vol] 19 mg/dL 7-18 [facility] Thin prep Papanicolaou smear with manual screeningOrdered By: Dr. Kramer on 07-27-2022 Thin prep Papanicolaou smear with manual screening 27 U/L 15-37 [facility] Thin prep Papanicolaou smear with manual screening 4 5-15 [facility] Laboratory - Chemistry and C hemistry - challengeon 10-14-2021 Free T4 [Mass/Vol] 0.99 ng/dL 0.76-1.46 [facility] Work Phone: No Panel Informationon 10-14 Thyroid Stimulating Hormone (TSH) 0.36 uIU/mL 0.358-3.74 [facility] Work Phone: CNCOon 07-09-2017 Erythrocyte distribution width Auto Ratio (RBC) Letter TextPhone: Vianeyrola Conroy[address] [place] [id number] #: [id number] ,Due to a change in the provider's schedule it has been necessary toreschedule your Appointment.Your original appointment was scheduled for 07/31/17 at 1 PM with Prince Whelan.Your new appointment is now scheduled on 11/18/16 at 340 PM with Elmer Velazquez M.D.If this new appointment is not convenient for you, please contact our officeat [phone].Thank you for choosing [facility] as your Healthcare Provider.Sincerely,Internal MedicineAppointment Office Normal [facility] CNOVon 06-19-2017 CNOV Office Visit (INTMWS) SONAL BOB ([id number]) 1955 FDate Time Provider Department06/19/17 11:20 AM ELMER VELAZQUEZ INTMWS During your visit today, we recorded the following information about you: Pulse Respiration Blood pressure Weight 67/minute 12/minute 120/70 67.6 kg Height 1.6 mReferring Provider: ELMER VELAZQUEZ [[id number]]Allergies As of Date: 06/19/2017 Noted Allergy ReactionTRAZODONE 05/18/2008 2 - Rash 8 - GI UpsetPENICILLINS 11/10/2003 1 - Mental Status Change 2 - RashTRAMADOL 05/31/2017 14 - Other: See Comments Comments: bad dreams and depressionZOLOFT (SERTRALINE HCL) 11/07/2006 Comments: hallucinationsDate Reviewed: 06/19/2017Reviewed by: Radha Allen AQUATIC PERFORMER - Fully AssessedReason for Visit: [facility] (Worker's Comp) [6307] Cmt: left lower leg injury on 05/04/2017Primary Visit Diagnosis:Patient left without being seen [Z53.21]Prescriptions as of 06/19/2017 Sig: TRAMADOL 50 MG TABLET Take 1 tablet by mouth every * OMEPRAZOLE 20 MG CAPSULE,MAGGIE* Take 1 capsule by mouth once * METOPROLOL SUCCINATE ER 50 MG* Take 1 tablet by mouth once d* CPAP Pressure change: AutoPAP 10-2* DIETARY SUPPLEMENT ORAL Take by mouth. Usana multi s* ASPIRIN 81 MG TABLET Take 1 tablet by mouth once d* * CHOLECALCIFEROL (VITAMIN D3) * Take 2 tabs daily.Problem List As Of Date 06/19/2017 Noted Resolved SCIATICA [M54.30] INVALID FOR* OSTEOPENIA [M89.9, M94.9] INVALID FOR* HYPOTHYROIDISM [T68.XXXA] INVALID FOR*07/16/2015 PSVT [I47.1] INVALID FOR* CHRONIC RHINITIS [J31.0] INVALID FOR* LBP (See LOW BACK PAIN) [M54.5] INVALID FOR* Dyskinesia of esophagus [K22.4] INVALID FOR* Diarrhea [R19.7] INVALID FOR* Hypertension [I10] INVALID FOR* SABINA on CPAP [G47.33, Z99.89] INVALID FOR* More... 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/31/17 11:20 AM BROOKE GOLDSTEIN) INTMWS During your visit today, we recorded the following information about you: Pulse Respiration Blood pressure Weight 68/minute 16/minute 120/68 67.1 kgTerri SHAHLA Goldstein CNS 05/31/2017 11:35 AM SignedContinue with treatments unchanged.Check to see in physical therapy would be covered.SHAHLA Forbes CNS 05/31/2017 12:14 PM SignedOUTPATIENT VISIT DATE May 31, 2017OUTPATIENT VISIT TYPEESTABLUNC HEALTH BL[facility] - M[facility]GANTONPRFIRSTHE[facility]OM[facility] HOSPITALRY CARE PHYSICIAN:LINDY Fernández COMPLAINT:Patient presents with:Recheck: Left legHistory of Present Illness:Sonal Conroy is a 62 year old female who was last seen 05/17/2017 by .She has been seen in the past forACTIVE PROBLEM LISTSciaticaOSTEOPENIAPSVTChron ic RhinitisLBP (See LOW BACK PAIN)Dyskinesia of EsophagusDiarrheaHypertensionOs a On CpapAcquired HypothyroidismHypersomnia Due to Medical ConditionShift Work Sleep DisorderPresents today for follow-up of left leg injury. Seen by Dr. Mock about 2weeks ago. Noted to have hematoma in the left leg. This has improved, reducedin size since injury. Does note some swelling persists in the left ankle andfoot. Has returned to work. Naproxen twice daily with some relief of pain.No recent hospital or ED visits.No new medical problems or medications.Able to obtain medications.No problems with taking medications or note side effects.PAST MEDICAL HISTORYDiagnosis Date- Allergic rhinitis, cause unspecified Allergic rhinitis- Dysfunction of eustachian tube- Esophageal reflux- Hypertension- Obstructive sleep apnea- Other specified gastritis- Paroxysmal supraventricular tachycardia (HCC)- Sleep apnea- Temporomandibular joint disorders, unspecified- Unspecified hemorrhoids without mention of complication Hemorrhoids- Unspecified hypothyroidismPAST SURGICAL HISTORYProcedure Laterality Date- COLONOSCOP W/ OR W/O BRSH SPEC 08/29/2012 Colonoscopy- EGD W/O OR W/BRUSH/WASH 08/05/2012 EGD- LEFT HEART CATH,PERCUTANEOUS 1998 Cardiac cath, L heart- LIGATE FALLOPIAN TUBE 23 years ago- THYROIDECTOMY SUBTOTAL/PARTIAL 1979 substernalFAMILY HISTORYProblem Relation Age of Onset- Hypertension Mother alive age 75- Stroke Father 60.s- Hypertension Son- sleep apnea [OTHER] SonSocial HistorySubstance Use Topics- Smoking status: Never Smoker- Smokeless tobacco: Never Used- Alcohol use NoALLERGIES:ALLERGIESAllergen Reactions- Trazodone Rash, GI Upset- Penicillins Mental Status Change, Rash- Tramadol Other: See Comments bad dreams and depression- Zoloft [Sertraline * hallucinationsMEDICATIONStraMAD ol (ULTRAM) 50 mg tablet Take 1 tablet by mouth every 6 hours as needed.omeprazole (PRILOSEC) 20 mg capsule Take 1 capsule by mouth once daily.metoprolol succinate ER (TOPROL XL) 50 mg 24 hr tablet Take 1 tablet by mouthonce daily.CPAP Pressure change: AutoPAP 10-20 cmH2O. Dx OSADIETARY SUPPLEMENT ORAL Take by mouth. Usana multi supplement. Uses DailyAspirin 81 mg Tab Take 1 tablet by mouth once daily. Take with food.CHOLECALCIFEROL (VITAMIN D3) 1,000 UNIT TAB Take 2 tabs daily.REVIEW OF SYSTEMS:GENERAL: Negative for: Weight loss or gain, Fever or Chills, Weakness and Sleepdifficulties.Physical Examination:BP 120/68 Pulse 68 Resp 16 Wt 148 lb (67.1kg)Extended Vitals not filed for this encounter.General appearance: Well appearing, alert, in no acute distress, well-hydrated,well nourished.Skin: Skin color, texture, turgor normal, no suspicious rashes or lesionsExtremities: + Hematoma left lateral calf ~[id number]; dimension, raised ~1/2inch, some ankle edema, no ecchymosis, no skin discoloration, clubbing orcyanosis. Good capillary refill.Musculoskeletal: +tenderness to palpation left ankle and left lateral calf /hematoma tendernessPeripheral pulses: NormalNeuro: Gait normal. Sensation grossly intact.Reviewed chart, outside records, testsI personally interviewed, confirmed and edited the above information ifobtained by others.TESTING:Glucose (mg/dL)Date Value03/30/2016 84 Potassium (mmol/L)Date 03/30/2016 3.8 Sodium (mmol/L)Date 03/30/2016 142 Chloride (mmol/L)Date 03/30/2016 102 CO2 (mmol/L)Date 03/30/2016 27 Creatinine (mg/dL)Date Value03/30/2016 0.63 BUN (mg/dL)Date 03/30/2016 18 Anion Gap (mmol/L)Date Value03/30/2016 13 Calcium (mg/dL)Date Value03/30/2016 9.0 Glucose (mg/dL)Date 03/30/2016 84 Potassium (mmol/L)Date Value03/30/2016 3.8 Sodium (mmol/L)Date 03/30/2016 142 Chloride (mmol/L)Date Value03/30/2016 102 CO2 (mmol/L)03/30/2016 27 Creatinine (mg/dL)03/30/2016 0.63 BUN (mg/dL)03/30/2016 18 Anion Gap (mmol/L)03/30/2016 13 Calcium (mg/dL)03/30/2016 9.0 Protein, Total (g/dL)03/24/2015 7.1 Albumin (g/dL)03/24/2015 4.2 Bilirubin, Total (mg/dL)03/24/2015 0.4 Alkaline Phosphatase (U/L)03/24/2015 48 AST (U/L)03/24/2015 28 ALT (U/L)03/24/2015 25 Hemoglobin (g/dL)03/24/2015 12.9 Hematocrit (%)03/24/2015 39.8 WBC (k/uL)03/24/2015 7.68 Cholesterol (mg/dL)2013 197 HDL Cholesterol (mg/dL)2013 78 LDL Cholesterol (mg/dL)2013 99 Triglyceride (mg/dL)Date 2013 99 No results found for: [id number] Fraction - Result: 65 % Date: 03/05/2017 Time: 11:06:34IMPRESSION:Ms. Conroy is a 62 year old woman presents for follow up after fall andinjury of left leg.After my examination and review of data, I make the following recommendations.PLAN AND RECOMMENDATIONS:1. Injury of ankle, left, subsequent encounter - ICD9: V58.89, 959.7, ICD10:S99.912D (primary diagnosis)- CONSULT TO PHYSICAL THERAPY2. Injury of leg, left, subsequent encounter - ICD9: V58.89, 959.7, ICD10:S89.92XD- CONSULT TO PHYSICAL THERAPYContinue with treatment unchangedRest as able, elevate when able.Compression with brian wrap or compression socks/stockingsNaproxen 440-500 BID is ok to use for pain, take with food.Intolerant of tramadolOK to soak legConsider PT for further evaluation and treatment. Check to see if this will becovered by insurance.Advised to go to ER if develops chest pain, shortness of breath, or severeworsening of symptoms.Discussed risks, benefits, alternatives, and potential side effects ofmedications.Ms. Conroy expressed understanding and agreed with the plan.Brooke Goldstein, CNSReferring Provider: SELF [200]Allergies As of Date: 05/31/2017 Noted Allergy ReactionTRAZODONE 05/18/2008 2 - Rash 8 - GI UpsetPENICILLINS 11/10/2003 1 - Mental Status Change 2 - RashTRAMADOL 05/31/2017 14 - Other: See Comments Comments: bad dreams and depressionZOLOFT (SERTRALINE HCL) 11/07/2006 Comments: hallucinationsDate Reviewed: 05/31/2017Reviewed by: Birdie Cosme LPN - Fully AssessedReason for Visit: Recheck [92] Cmt: Left legPrimary Visit Diagnosis:Injury of ankle, left, subsequent encounter [S99.912D] Other Visit Diagnosis:Injury of leg, left, subsequent encounter [S89.92XD]Order(s):CONSULT TO PHYSICAL THERAPY [9032] Order #: [id number]: 1Prescriptions as of 05/31/2017 Sig: TRAMADOL 50 MG TABLET Take 1 tablet by mouth every * OMEPRAZOLE 20 MG CAPSULE,MAGGIE* Take 1 capsule by mouth once * METOPROLOL SUCCINATE ER 50 MG* Take 1 tablet by mouth once d* CPAP Pressure change: AutoPAP 10-2* DIETARY SUPPLEMENT ORAL Take by mouth. Usana multi s* ASPIRIN 81 MG TABLET Take 1 tablet by mouth once d* * CHOLECALCIFEROL (VITAMIN D3) * Take 2 tabs daily.Medication notes this encounter TRAMADOL 50 MG TABLET >> Birdie Cosme LPN 05/31/2017 11:19 AM >> BIRDIE COSME LPN [facility] May 31, 2017 11:19 AM Not takingProblem List As Of Date 05/31/2017 Noted Resolved SCIATICA [M54.30] INVALID FOR* OSTEOPENIA [M89.9, M94.9] INVALID FOR* HYPOTHYROIDISM [T68.XXXA] INVALID FOR*07/16/2015 PSVT [I47.1] INVALID FOR* CHRONIC RHINITIS [J31.0] INVALID FOR* LBP (See LOW BACK PAIN) [M54.5] INVALID FOR* Dyskinesia of esophagus [K22.4] INVALID FOR* Diarrhea [R19.7] INVALID FOR* Hypertension [I10] INVALID FOR* SABINA on CPAP [G47.33, Z99.89] INVALID FOR* More... 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 Check to see in physical therapy would be covered. Status:Closed by BROOKE FALLON on 05/31/17 [facility] PROGRESSon 05-31-2017 PROGRESS HNO ID: [id number] thor: Brooke (Shahla) SHAHLA GoldsteinService: (none)Author Type: Nurse SpecialistType: Progress NotesFiled: 05/31/2017 12:14 PMNote Text:OUTPATIENT VISIT DATE May 31, 2017OUTPATIENT VISIT TYPEESTABLISHEDPRIMARY CARE PHYSICIAN:LINDY Fernández COMPLAINT:Patient presents with:Recheck: Left legHistory of Present Illness:Sonal Conroy is a 62 year old female who was last seen 05/17/2017 [address]Dr. Mock.She has been seen in the past forACTIVE PROBLEM LISTSciaticaOSTEOPENIAPSVTChron ic RhinitisLBP (See LOW BACK PAIN)Dyskinesia of EsophagusDiarrheaHypertensionOs a On CpapAcquired HypothyroidismHypersomnia Due to Medical ConditionShift Work Sleep DisorderPresents today for follow-up of left leg injury. Seen by Dr. Mock about2 weeks ago. Noted to have hematoma in the left leg. This has improved,reduced in size since injury. Does note some swelling persists in theleft ankle and foot. Has returned to work. Naproxen twice daily withsome relief of pain.No recent hospital or ED visits.No new medical problems or medications.Able to obtain medications.No problems with taking medications or note side effects.PAST MEDICAL HISTORYDiagnosis Date- Allergic rhinitis, cause unspecified Allergic rhinitis- Dysfunction of eustachian tube- Esophageal reflux- Hypertension- Obstructive sleep apnea- Other specified gastritis- Paroxysmal supraventricular tachycardia (HCC)- Sleep apnea- Temporomandibular joint disorders, unspecified- Unspecified hemorrhoids without mention of complication Hemorrhoids- Unspecified hypothyroidismPAST SURGICAL HISTORYProcedure Laterality Date- COLONOSCOP W/ OR W/O [facility] SPEC 08/29/2012 Colonoscopy- EGD W/O OR W/BRUSH/WASH 08/05/2012 EGD- LEFT HEART CATH,PERCUTANEOUS 1998 Cardiac cath, L heart- LIGATE FALLOPIAN TUBE 23 years ago- THYROIDECTOMY SUBTOTAL/PARTIAL 1979 substernalFAMILY HISTORYProblem Relation Age of Onset- Hypertension Mother alive age 75- Stroke Father 60.s- Hypertension Son- sleep apnea [OTHER] SonSocial HistorySubstance Use Topics- Smoking status: Never Smoker- Smokeless tobacco: Never Used- Alcohol use NoALLERGIES:ALLERGIESAllergen Reactions- Trazodone Rash, GI Upset- Penicillins Mental Status Change, Rash- Tramadol Other: See Comments bad dreams and depression- Zoloft [Sertraline * hallucinationsMEDICATIONStraMAD ol (ULTRAM) 50 mg tablet Take 1 tablet by mouth every 6 hours asneeded.omeprazole (PRILOSEC) 20 mg capsule Take 1 capsule by mouth once daily.metoprolol succinate ER (TOPROL XL) 50 mg 24 hr tablet Take 1 tablet bymouth once daily.CPAP Pressure change: AutoPAP 10-20 cmH2O. Dx OSADIETARY SUPPLEMENT ORAL Take by mouth. Usana multi supplement. Uses DailyAspirin 81 mg Tab Take 1 tablet by mouth once daily. Take with food.CHOLECALCIFEROL (VITAMIN D3) 1,000 UNIT TAB Take 2 tabs daily.REVIEW OF SYSTEMS:GENERAL: Negative for: Weight loss or gain, Fever or Chills, Weakness andSleep difficulties.Physical Examination:BP 120/68 Pulse 68 Resp 16 Wt 148 lb (67.1kg)Extended Vitals not filed for this encounter.General appearance: Well appearing, alert, in no acute distress,well-hydrated, well nourished.Skin: Skin color, texture, turgor normal, no suspicious rashes or lesionsExtremities: + Hematoma left lateral calf ~1x2 dimension, raised ~1/2inch, some ankle edema, no ecchymosis, no skin discoloration, clubbing orcyanosis. Good capillary refill.Musculoskeletal: +tenderness to palpation left ankle and left lateral calf/ hematoma tendernessPeripheral pulses: NormalNeuro: Gait normal. Sensation grossly intact.Reviewed chart, outside records, testsI personally interviewed, confirmed and edited the above information ifobtained by others.TESTING:Glucose (mg/dL)Date Value03/30/2016 84 Potassium (mmol/L)Date Value03/30/2016 3.8 Sodium (mmol/L)Date Value03/30/2016 142 Chloride (mmol/L)Date Value03/30/2016 102 CO2 (mmol/L)Date 03/30/2016 27 Creatinine (mg/dL)Date Value03/30/2016 0.63 BUN (mg/dL)Date Value03/30/2016 18 Anion Gap (mmol/L)Date Value03/30/2016 13 Calcium (mg/dL)Date Value03/30/2016 9.0 Glucose (mg/dL)Date Value03/30/2016 84 Potassium (mmol/L)Date Value03/30/2016 3.8 Sodium (mmol/L)03/30/2016 142 Chloride (mmol/L)03/30/2016 102 CO2 (mmol/L)03/30/2016 27 Creatinine (mg/dL)03/30/2016 0.63 BUN (mg/dL)03/30/2016 18 Anion Gap (mmol/L)03/30/2016 13 Calcium (mg/dL)03/30/2016 9.0 Protein, Total (g/dL)03/24/2015 7.1 Albumin (g/dL)03/24/2015 4.2 Bilirubin, Total (mg/dL)03/24/2015 0.4 Alkaline Phosphatase (U/L)03/24/2015 48 AST (U/L)03/24/2015 28 ALT (U/L)03/24/2015 25 Hemoglobin (g/dL)03/24/2015 12.9 Hematocrit (%)03/24/2015 39.8 WBC (k/uL)03/24/2015 7.68 Cholesterol (mg/dL)2013 197 HDL Cholesterol (mg/dL)2013 78 LDL Cholesterol (mg/dL)2013 99 Triglyceride (mg/dL)Date 2013 99 No results found for: BSL4COrcodrnp Fraction - Result: 65 % Date: 03/05/2017 Time: 11:06:34IMPRESSION:Ms. Conroy is a 62 year old woman presents for follow up after fall andinjury of left leg.After my examination and review of data, I make the followingrecommendations.PLAN AND RECOMMENDATIONS:1. Injury of ankle, left, subsequent encounter - ICD9: V58.89, 959.7,ICD10: S99.912D (primary diagnosis)- CONSULT TO PHYSICAL THERAPY2. Injury of leg, left, subsequent encounter - ICD9: V58.89, 959.7, ICD10:S89.92XD- CONSULT TO PHYSICAL THERAPYContinue with treatment unchangedRest as able, elevate when able.Compression with brian wrap or compression socks/stockingsNaproxen 440-500 BID is ok to use for pain, take with food.Intolerant of tramadolOK to soak legConsider PT for further evaluation and treatment. Check to see if thiswill be covered by insurance.Advised to go to ER if develops chest pain, shortness of breath, or severeworsening of symptoms.Discussed risks, benefits, alternatives, and potential side effects ofmedications.Ms. Conroy expressed understanding and agreed with the plan.SHAHLA Forbes [facility] Tomasa 05-18-2017 [facility] Telephone (FAMPWS) YESIKA GRAYSON PAEZIA Rola ([id number]) 1955 [facility] Time Provider Department05/18/17 MARY MOCK During your visit today, we recorded the following information about you:Mary Mock DO 05/18/2017 11:34 AM SignedPlease let patient know that xray showed no acute fracture. I do recommendwrapping if it makes the leg feel better ANDamp; warm compresses on the hematoma. Hitesh Knott LPN 05/21/2017 9:21 AM SignedPt notified.Sofia Roth Psr 05/22/2017 10:42 AM SignedTerry from [facility] is calling to receive further information about the BWCclaim; please call her at [phone].Allergies As of Date: 05/18/2017 Noted Allergy ReactionTRAZODONE 05/18/2008 2 - Rash 8 - GI UpsetPENICILLINS 11/10/2003 1 - Mental Status Change 2 - RashZOLOFT (SERTRALINE HCL) 11/07/2006 Comments: hallucinationsDate Reviewed: 05/17/2017Reviewed by: Mary Mock - Fully AssessedReason for Visit: Results [95] Cmt: xrayReason For Visit History RecordedPrescriptions as of 05/18/2017 Sig: TRAMADOL 50 MG TABLET Take 1 tablet by mouth every * OMEPRAZOLE 20 MG CAPSULE,MAGGIE* Take 1 capsule by mouth once * METOPROLOL SUCCINATE ER 50 MG* Take 1 tablet by mouth once d* CPAP Pressure change: AutoPAP 10-2* DIETARY SUPPLEMENT ORAL Take by mouth. 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 It is my recommendation that shecontinue with light duty for an additional week secondary to this injury. Ifyou have any questions, please call the office.Sincerely,Mary Mock DO [facility] CNOVon 05-17-2017 CNOV Office Visit (FAMPWS) YESIKA PAEZSONAL ([id number]) 1955 FDate Time Provider Department05/17/17 11:40 AM MARY MOCK FAMPWS During your visit today, we recorded the following information about you: Temperature Pulse Respiration Blood pressure 97.4 degrees 72/minute 18/minute 130/78 Weight 66.7 kgNicole Jose Mock DO 05/22/2017 10:46 AM SignedChief ComplaintPatient presents with:ER F/Taylor Rola Conroy is a 62 year old female who presents here today for AboveComplaints..This is a workers comp issue.Patient had a fall/bump at work against a metal shelf resulting in significantpain/swelling/bruisi ng of the left lateral calf. She has been usingice/heat/elevation but finds that it is still painful to the touch ANDamp; withwalking. She still has a very large hematoma on the left lateral calf andsignificant bruising tracking to the foot. She had xrays of the foot in the ERbut not of the tib/fib/anklePast medical history, appointments, medications, allergies reviewed.Previous Medical HistoryPAST MEDICAL HISTORYDiagnosis Date- Allergic rhinitis, cause unspecified Allergic rhinitis- Dysfunction of eustachian tube- Esophageal reflux- Hypertension- Obstructive sleep apnea- Other specified gastritis- Paroxysmal supraventricular tachycardia (HCC)- Sleep apnea- Temporomandibular joint disorders, unspecified- Unspecified hemorrhoids without mention of complication Hemorrhoids- Unspecified hypothyroidismPrevious Surgical HistoryPAST SURGICAL [id number]/29/2012: COLONOSCOP W/ OR W/O [facility] SPEC Comment: Xlbbiugybwl24/5/2012: EGD W/O OR W/BRUSH/WASH Comment: [id number]: LEFT HEART CATH,PERCUTANEOUS Comment: Cardiac cath, L heartNo date: LIGATE FALLOPIAN TUBE Comment: 23 years [id number]: THYROIDECTOMY SUBTOTAL/PARTIAL Comment: substernalFamily HistoryFAMILY HISTORY Hypertension Mother Comment: alive age 75 Stroke Father Comment: 60.s Hypertension Son sleep apnea [OTHER] SonPatient AllergiesALLERGIESAllergen Reactions- Trazodone Rash, GI Upset- Penicillins Mental Status Change, Rash- Zoloft [Sertraline * hallucinationsCurrent MedicationsCurrent Outpatient Prescriptions on File Prior to Visit:omeprazole (PRILOSEC) 20 mg capsule Take 1 capsule by mouth once daily.metoprolol succinate ER (TOPROL XL) 50 mg 24 hr tablet Take 1 tablet by mouthonce daily.CPAP Pressure change: AutoPAP 10-20 cmH2O. Dx OSADIETARY SUPPLEMENT ORAL Take by mouth. Usana multi supplement. Uses DailyAspirin 81 mg Tab Take 1 tablet by mouth once daily. 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 [place] in [place]. , 3 kidsEXAM:BP 130/78 (BP Site: Left Arm, BP Position: Sitting, BP Cuff Size: RegularAdult) Pulse 72 Temp 36.3 ?C (97.4 ?F) Resp 18 Wt 66.7 kg (147 lb 1.3oz) BMI 26.05 kg/g0Ogwzqsp Appearance: Well appearing, alert, in no acute distress, well-hydrated,well nourished..Skin: Skin color, texture, turgor normal, no suspicious rashes or lesions.Head: Normocephalic, no masses, lesions, tenderness or abnormalities.Eyes: Anicteric sclera.Ears: External ears normal, canals clear.Lungs: Lungs clear to auscultation. No wheezing, rhonchi, rales.Heart: RRR without murmur, gallop, or rubs. No ectopy.Extremities: large hematoma left lateral calf, bruising tracking into left foot.Health Maintenance ListINFLUENZA(1) due on 06/01/2017MAMMOGRAM due on 08/29/2017LIPID SCREEN due on 2018DIABETES SCREEN due on 03/30/2019PAP EVERY 5 YEARS due on 08/12/2020HPV EVERY 5 YEARS due on 08/12/2020COLORECTAL CANCER SCREENING,SEE MODIFIER due on 08/29/2022TETANUS due on 03/30/2026ZOSTAVAX CompletedHEPATITIS C SCREENING CompletedASSESSMENT/PLAN:1. Fall, initial encounter - ICD9: E888.9, ICD10: W19.XXXA (primary diagnosis)- XR TIBIA FIBULA AP/LAT LT- XR ANKLE AP/LAT LT2. Trauma - ICD9: 959.9, ICD10: T14.90- Rest, ice/elevation, pain control, see above, RTC if no improvement- work restrictions based on imaginsNicole Sue Peres Provider: SELF [200]Allergies As of Date: 05/17/2017 Noted Allergy ReactionTRAZODONE 05/18/2008 2 - Rash 8 - GI UpsetPENICILLINS 11/10/2003 1 - Mental Status Change 2 - RashZOLOFT (SERTRALINE HCL) 11/07/2006 Comments: hallucinationsDate Reviewed: 05/17/2017Reviewed by: Mary Mock - Fully AssessedReason for Visit: ER F/U [41]Primary Visit Diagnosis:Fall, initial encounter [W19.XXXA] Other Visit Diagnosis:Trauma [T14.90]Order(s):XR TIBIA FIBULA AP/LAT LT [[id number]] Order #: [id number] FUTURE XR ANKLE AP/LAT LT [[id number]] Order #: [id number] FUTURE traMADol (ULTRAM) 50 mg tabletTake 1 tablet by mouth every 6 hours as needed.Disp: 20 tabletRfl: 0Prescriptions as of 05/17/2017 Sig: OMEPRAZOLE 20 MG CAPSULE,MAGGIE* Take 1 capsule by mouth once * METOPROLOL SUCCINATE ER 50 MG* Take 1 tablet by mouth once d* CPAP Pressure change: AutoPAP 10-2* DIETARY SUPPLEMENT ORAL Take by mouth. Usana multi s* ASPIRIN 81 MG TABLET Take 1 tablet by mouth once d* * CHOLECALCIFEROL (VITAMIN D3) * Take 2 tabs daily. 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 Status:Closed by MARY MOCK on 05/22/17 [facility] Tele[facility] (FAMPWS) SONAL BOB ([id number]) 1955 FDate Time Provider Department05/17/17 MARY MOCK FAMPWS During your visit today, we recorded the following information about you:Andra Adame [facility] 05/17/2017 2:34 PM SignedPatient calling asking if she should still have work restrictions with herankle? Patient was in office today for appt. Patient said the ER had herelevate her leg, asking if could have note if still needing restrictionsplease. Please advisKrissy Mock DO 05/17/2017 5:37 PM SignedI don't have the final read on her xrays but they look ok to me.I have written her a letter for a week of light duty, I will drop it in [place] [facility] hospitalSound[facility]; she can pick it up tomorrow, Hitesh Knott [facility] 05/18/2017 11:14 AM SignedPt notified.Ni Holcomb [facility] 05/30/2017 10:53 AM SignedKarrie from [facility] calls to request a copy of OV note. Faxed to [phone] her request.Allergies As of Date: 05/17/2017 Noted Allergy ReactionTRAZODONE 05/18/2008 2 - Rash 8 - GI UpsetPENICILLINS 11/10/2003 1 - Mental Status Change 2 - RashZOLOFT (SERTRALINE HCL) 11/07/2006 Comments: hallucinationsDate Reviewed: 05/17/2017Reviewed by: Mary Mock - Fully AssessedReason for Visit: work restrictions? [Other]Prescriptions as of 05/17/2017 Sig: TRAMADOL 50 MG TABLET Take 1 tablet by mouth every * OMEPRAZOLE 20 MG CAPSULE,MAGGIE* Take 1 capsule by mouth once * METOPROLOL SUCCINATE ER 50 MG* Take 1 tablet by mouth once d* CPAP Pressure change: AutoPAP 10-2* DIETARY SUPPLEMENT ORAL Take by mouth. 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 status: : NoBreastfeeding status: NO.PATIENT RELEVANT IMPLANT DATA REVIEWED: Not ApplicableRADIOLOGY DEPARTMENT: General X-ray: Exam(s) Completed: Lower ExtremityX-Ray(s): Tibia Fibula, Left:PERIPHERAL IV DATA: Not applicableSIGNED BY: Pradeep Minaya 2016 12:31 PM [facility] PROGRESS HNO ID: [id number] thor: Mary Garcia: (none)Author Type: PhysicianType: Progress NotesFiled: 05/22/2017 10:46 AMNote Text:Chief ComplaintPatient presents with:ER F/Taylor Rola Conroy is a 62 year old female who presents here today for AboveComplaints..This is a workers comp issue.Patient had a fall/bump at work against a metal shelf resulting insignificant pain/swelling/bruising of the left lateral calf. She has beenusing ice/heat/elevation but finds that it is still painful to the touch ANDwith walking. She still has a very large hematoma on the left lateral calfand significant bruising tracking to the foot. She had xrays of the footin the ER but not of the tib/fib/anklePast medical history, appointments, medications, allergies reviewed.Previous Medical HistoryPAST MEDICAL HISTORYDiagnosis Date- Allergic rhinitis, cause unspecified Allergic rhinitis- Dysfunction of eustachian tube- Esophageal reflux- Hypertension- Obstructive sleep apnea- Other specified gastritis- Paroxysmal supraventricular tachycardia (HCC)- Sleep apnea- Temporomandibular joint disorders, unspecified- Unspecified hemorrhoids without mention of complication Hemorrhoids- Unspecified hypothyroidismPrevious Surgical HistoryPAST SURGICAL [id number]/29/2012: COLONOSCOP W/ OR W/O [facility] SPEC Comment: Caicfnlvzxy49/5/2012: EGD W/O OR W/BRUSH/WASH Comment: [id number]: LEFT HEART CATH,PERCUTANEOUS Comment: Cardiac cath, L heartNo date: LIGATE FALLOPIAN TUBE Comment: 23 years [id number]: THYROIDECTOMY SUBTOTAL/PARTIAL Comment: substernalFamily HistoryFAMILY HISTORY Hypertension Mother Comment: alive age 75 Stroke Father Comment: 60.s Hypertension Son sleep apnea [OTHER] SonPatient AllergiesALLERGIESAllergen Reactions- Trazodone Rash, GI Upset- Penicillins Mental Status Change, Rash- Zoloft [Sertraline * hallucinationsCurrent MedicationsCurrent Outpatient Prescriptions on File Prior to Visit:omeprazole (PRILOSEC) 20 mg capsule Take 1 capsule by mouth once daily.metoprolol succinate ER (TOPROL XL) 50 mg 24 hr tablet Take 1 tablet bymouth once daily.CPAP Pressure change: AutoPAP 10-20 cmH2O. Dx OSADIETARY SUPPLEMENT ORAL Take by mouth. Usana multi supplement. Uses DailyAspirin 81 mg Tab Take 1 tablet by mouth once daily. 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 [place] in [place]. , 3 kidsEXAM:BP 130/78 (BP Site: Left Arm, BP Position: Sitting, BP Cuff Size: RegularAdult) Pulse 72 Temp 36.3 ?C (97.4 ?F) Resp 18 Wt 66.7 kg (147 lb1.3 oz) BMI 26.05 kg/b6Xybhocj Appearance: Well appearing, alert, in no acute distress,well-hydrated, well nourished..Skin: Skin color, texture, turgor normal, no suspicious rashes or lesions.Head: Normocephalic, no masses, lesions, tenderness or abnormalities.Eyes: Anicteric sclera.Ears: External ears normal, canals clear.Lungs: Lungs clear to auscultation. No wheezing, rhonchi, rales.Heart: RRR without murmur, gallop, or rubs. No ectopy.Extremities: large hematoma left lateral calf, bruising tracking into leftfoot.Health Maintenance ListINFLUENZA(1) due on 06/01/2017MAMMOGRAM due on 08/29/2017LIPID SCREEN due on 2018DIABETES SCREEN due on 03/30/2019PAP EVERY 5 YEARS due on 08/12/2020HPV EVERY 5 YEARS due on 08/12/2020COLORECTAL CANCER SCREENING,SEE MODIFIER due on 08/29/2022TETANUS due on 03/30/2026ZOSTAVAX CompletedHEPATITIS C SCREENING CompletedASSESSMENT/PLAN:1. Fall, initial encounter - ICD9: E888.9, ICD10: W19.XXXA (primarydiagnosis)- XR TIBIA FIBULA AP/LAT LT- XR ANKLE AP/LAT LT2. Trauma - ICD9: 959.9, ICD10: T14.90- Rest, ice/elevation, pain control, see above, RTC if no improvement- work restrictions based on imaginsNicole Jose Mock, [facility] XR TIBIA FIBULA AP/LATon XR TIBIA FIBULA AP/LAT * * *Final Report* * *DATE OF EXAM: May 17 2017 12:46PM WOX 2043 - XR TIBIA FIBULA AP/LAT - LEFT / REASON: Unspecified fall, initial encounter * * * * Physician Interpretation * * * * HISTORY: left mid barragan pain to ankle with bruising/hit it on something at work on May 04 patient states. Unspecified fall, initial encounter .TECHNIQUE: XR TIBIA FIBULA AP/LAT Laterality: LEFT Number of different views (projections): 2COMPARISON: NoneRESULT:No fracture identified. No focal periostitis. Benign deformity of the medial aspect of the proximal tibia metaphysis.No other significant abnormality. IMPRE SSION:No acute fracture.Wood Mechanist: KAVON Transcribe Date/Time: May 17 2017 10:16PDictated by : ROXANNE SERRANO MDThis examination was interpreted and the report reviewed and electronically signed by: ROXANNE SERRANO MD on May 17 2017 10:17PM EST [facility] Tomasa 04-[birth year]-2017 CNPN Telephone (MIQ) SONAL CONROY ([id number]) 1955 FDate Time Provider Department04/09/17 MARY MOCK MIQ During your visit today, we recorded the following information about you:Sarita Godfrey 04/09/2017 12:03 PM AddendumPatient came in and is requesting a handicap sticker for her car. Please callpatient when it is ready.Zee Mellisa BONILLA 04/09/2017 2:22 PM SignedPlacard pending under letters.Mary Mock, 04/10/2017 5:34 AM SignedPlease let patient know that letter is ready for fruit or nut picker, thanksAllergies As of Date: 04/09/2017 Noted Allergy ReactionTRAZODONE 05/18/2008 2 - Rash 8 - GI UpsetPENICILLINS 11/10/2003 1 - Mental Status Change 2 - RashZOLOFT (SERTRALINE HCL) 11/07/2006 Comments: hallucinationsDate Reviewed: 03/09/2017Reviewed by: Zainab Flores RN - Fully AssessedReason for Visit: handicap sticker for car [Other]Prescriptions as of 04/09/2017 Sig: OMEPRAZOLE 20 MG CAPSULE,MAGGIE* Take 1 capsule by mouth once * METOPROLOL SUCCINATE ER 50 MG* Take 1 tablet by mouth once d* CPAP Pressure change: AutoPAP 10-2* DIETARY SUPPLEMENT ORAL Take by mouth. 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 Kranthi Kramer MD Work Phone: [facility] 06-04-2025 14:06-0400 Body mass index (BMI) [Ratio] 30.1 kg/m2 Dr. Kranthi Kramer MD Work Phone: [facility] 06-04-2025 14:06-0400 Body temperature 96.8 [degF] Dr. Kranthi Kramer MD Work Phone: [facility] 06-04-2025 14:06-0400 Body weight 77.[address] Kranthi Kramer MD Work Phone: [facility] 06-04-2025 14:06-0400 Diastolic blood pressure 84 mm[Hg] Dr. Kranthi Kramer MD Work Phone: [facility] 06-04-2025 14:06-0400 Heart rate 72 /min Dr. Kranthi Kramer MD Work Phone: [facility] 06-04-2025 14:06-0400 Respiratory rate 18 /min Dr. Kranthi Kramer MD Work Phone: [facility] 06-04-2025 14:06-0400 SaO2% (BldA) [Mass fraction] 96 % Dr. Kranthi Kramer MD Work Phone: [facility] 06-04-2025 14:06-0400 Systolic blood pressure 132 mm[Hg] Dr. Kranthi Kramer MD Work Phone: [facility] 04-02-2025 14:32-0400 Body height 160.[address] Kranthi Kramer MD Work Phone: [facility] 04-02-2025 14:32-0400 Body mass index (BMI) [Ratio] 29.5 kg/m2 Dr. Kranthi Kramer MD Work Phone: [facility] 04-02-2025 14:32-0400 Body temperature 97.3 [degF] Dr. rKanthi Kramer MD Work Phone: [facility] 04-02-2025 14:32-0400 Body weight 75.[address] Kranthi Kramer MD Work Phone: [facility] 04-02-2025 14:32-0400 Diastolic blood pressure 82 mm[Hg] Dr. Kranthi Kramer MD Work Phone: [facility] 04-02-2025 14:32-0400 Heart rate 62 /min Dr. Kranthi Kramer MD Work Phone: [facility] 04-02-2025 14:32-0400 Respiratory rate 18 /min Dr. Kranthi Kramer MD Work Phone: [facility] 04-02-2025 14:32-0400 SaO2% (BldA) [Mass fraction] 97 % Dr. Kranthi Kramer MD Work Phone: [facility] 04-02-2025 14:32-0400 Systolic blood pressure 122 mm[Hg] Dr. Kranthi Kramer MD Work Phone: [facility] 03-18-2025 17:50-0400 Body height 160.[address] Kranthi Kramer MD Work Phone: [facility] 03-18-2025 17:50-0400 Body mass index (BMI) [Ratio] 30.3 kg/m2 Dr. Kranthi Kramer MD Work Phone: [facility] 03-18-2025 17:50-0400 Body temperature 97.4 [degF] Dr. Kranthi Kramer MD Work Phone: [facility] 03-18-2025 17:50-0400 Body weight 77.[address] Kranthi Kramer MD Work Phone: [facility] 03-18-2025 17:50-0400 Diastolic blood pressure 62 mm[Hg] Dr. Kranthi Kramer MD Work Phone: [facility] 03-18-2025 17:50-0400 Heart rate 73 /min Dr. Kranthi Kramer MD Work Phone: [facility] 03-18-2025 17:50-0400 Respiratory rate 16 /min Dr. Kranthi Kramer MD Work Phone: [facility] 03-18-2025 17:50-0400 SaO2% (BldA) [Mass fraction] 92 % Dr. Kranthi Kramer MD Work Phone: [facility] 03-18-2025 17:50-0400 Systolic blood pressure 124 mm[Hg] Dr. Kranthi Kramer MD Work Phone: [facility] 12-24-2024 10:21-0400 Body height 160.[address] Kranthi Kramer MD Work Phone: [facility] 12-24-2024 10:21-0400 Body mass index (BMI) [Ratio] 29.4 kg/m2 Dr. Kranthi Kramer MD Work Phone: [facility] 12-24-2024 10:21-0400 Body temperature 97.5 [degF] Dr. Kranthi Kramer MD Work Phone: [facility] 12-24-2024 10:21-0400 Body weight 75.[address] Kranthi Kramer MD Work Phone: [facility] 12-24-2024 10:21-0400 Diastolic blood pressure 82 mm[Hg] Dr. Kranthi Kramer MD Work Phone: [facility] 12-24-2024 10:21-0400 Heart rate 71 /min Dr. Kranthi Kramer MD Work Phone: [facility] 12-24-2024 10:21-0400 Respiratory rate 16 /min Dr. Kranthi Kramer MD Work Phone: [facility] 12-24-2024 10:21-0400 SaO2% (BldA) [Mass fraction] 95 % Dr. Kranthi Kramer MD Work Phone: [facility] 12-24-2024 10:21-0400 Systolic blood pressure 122 mm[Hg] Dr. Kranthi Kramer MD Work Phone: [facility] 11-13-2024 14:48-0500 Body mass index (BMI) [Ratio] 29.2 kg/m2 Dr. Kranthi Kramer MD Work Phone: [facility] 11-13-2024 14:48-0500 Body temperature 97.8 [degF] Dr. Kranthi Kramer MD Work Phone: [facility] 11-13-2024 14:48-0500 Body weight 74.[address] Kranthi Kramer MD Work Phone: [facility] 11-13-2024 14:48-0500 Diastolic blood pressure 78 mm[Hg] Dr. Kranthi Kramer MD Work Phone: [facility] 11-13-2024 14:48-0500 Heart rate 70 /min Dr. Kranthi Kramer MD Work Phone: [facility] 11-13-2024 14:48-0500 Respiratory rate 18 /min Dr. Kranthi Kramer MD Work Phone: [facility] 11-13-2024 14:48-0500 SaO2% (BldA) [Mass fraction] 97 % Dr. Kranthi Kramer MD Work Phone: [facility] 11-13-2024 14:48-0500 Systolic blood pressure 122 mm[Hg] Dr. Kranthi Kramer MD Work Phone: [facility] 09-29-2024 10:44-0500 Body mass index (BMI) [Ratio] 28.8 kg/m2 Dr. Kranthi Kramer MD Work Phone: [facility] 09-29-2024 10:44-0500 Body temperature 97.1 [degF] Dr. Kranhti Kramer MD Work Phone: [facility] 09-29-2024 10:44-0500 Body weight 73.[address] Kranthi Kramer MD Work Phone: [facility] 09-29-2024 10:44-0500 Diastolic blood pressure 64 mm[Hg] Dr. Kranthi Kramer MD Work Phone: [facility] 09-29-2024 10:44-0500 Heart rate 52 /min Dr. Kranthi Kramer MD Work Phone: [facility] 09-29-2024 10:44-0500 Respiratory rate 14 /min Dr. Kranthi Kramer MD Work Phone: [facility] 09-29-2024 10:44-0500 SaO2% (BldA) [Mass fraction] 95 % Dr. Kranthi Kramer MD Work Phone: [facility] 09-29-2024 10:44-0500 Systolic blood pressure 110 mm[Hg] Dr. Kranthi Kramer MD Work Phone: [facility] 09-27-2023 14:26-0500 Body temperature 97 [degF] Dr. Kranthi Kramer Work Phone: [facility] 09-27-2023 14:26-0500 Diastolic blood pressure 76 mm[Hg] Dr. Kranthi Kramer Work Phone: [facility] 09-27-2023 14:26-0500 Heart rate 65 /min Dr. Kranthi Kramer Work Phone: [facility] 09-27-2023 14:26-0500 Respiratory rate 16 /min Dr. Kranthi Kramer Work Phone: [facility] 09-27-2023 14:26-0500 SaO2% (BldA) [Mass fraction] 97 % Dr. Kranthi Kramer Work Phone: [facility] 09-27-2023 14:26-0500 Systolic blood pressure 130 mm[Hg] Dr. Kranthi Kramer Work Phone: [facility] 09-27-2023 13:48-0500 Body height 160.[address] Kranthi Kramer Work Phone: [facility] 09-27-2023 13:48-0500 Body mass index (BMI) [Ratio] 27.1 kg/m2 Dr. Kranthi Kramer Work Phone: [facility] 09-27-2023 13:48-0500 Body weight 69.[address] Kranthi Kramer Work Phone: [facility] 09-10-2023 10:12-0500 Body mass index (BMI) [Ratio] 27.1 kg/m2 Dr. Kranthi Kramer Work Phone: [facility] 09-10-2023 10:12-0500 Body temperature 97 [degF] Dr. Kranthi Kramer Work Phone: [facility] 09-10-2023 10:12-0500 Body weight 69.[address] Kranthi Kramer Work Phone: [facility] 09-10-2023 10:12-0500 Diastolic blood pressure 80 mm[Hg] Dr. Kranthi Kramer Work Phone: [facility] 09-10-2023 10:12-0500 Heart rate 66 /min Dr. Kranthi Kramer Work Phone: [facility] 09-10-2023 10:12-0500 Respiratory rate 16 /min Dr. Kranthi Kramer Work Phone: [facility] 09-10-2023 10:12-0500 SaO2% (BldA) [Mass fraction] 99 % Dr. Kranthi Kramer Work Phone: [facility] 09-10-2023 10:12-0500 Systolic blood pressure 124 mm[Hg] Dr. Kranthi Kramer Work Phone: [facility] 07-24-2023 08:04-0400 Body height 160.[address] Krnathi Kramer Work Phone: [facility] 07-24-2023 08:04-0400 Body mass index (BMI) [Ratio] 27.8 kg/m2 Dr. Kranthi Kramer Work Phone: [facility] 07-24-2023 08:04-0400 Body temperature 96.9 [degF] Dr. Kranthi Kramer Work Phone: [facility] 07-24-2023 08:04-0400 Body weight 71.[address] Kranthi Kramer Work Phone: [facility] 07-24-2023 08:04-0400 Diastolic blood pressure 74 mm[Hg] Dr. Kranthi Kramer Work Phone: [facility] 07-24-2023 08:04-0400 Heart rate 72 /min Dr. Kranthi Kramer Work Phone: [facility] 07-24-2023 08:04-0400 Respiratory rate 16 /min Dr. Kranthi Kramer Work Phone: [facility] 07-24-2023 08:04-0400 SaO2% (BldA) [Mass fraction] 96 % Dr. Kranthi Kramer Work Phone: [facility] 07-24-2023 08:04-0400 Systolic blood pressure 131 mm[Hg] Dr. Kranthi Kramer Work Phone: [facility] 06-11-2023 09:30-0400 Body height 160.[address] Kranthi Kramer Work Phone: [facility] 06-11-2023 09:30-0400 Body mass index (BMI) [Ratio] 28.1 kg/m2 Dr. Kranthi Kramer Work Phone: [facility] 06-11-2023 09:30-0400 Body temperature 97.9 [degF] Dr. Kranthi Kramer Work Phone: [facility] 06-11-2023 09:30-0400 Body weight 72.[address] Kranthi Kramer Work Phone: [facility] 06-11-2023 09:30-0400 Diastolic blood pressure 84 mm[Hg] Dr. Kranthi Kramer Work Phone: [facility] 06-11-2023 09:30-0400 Heart rate 61 /min Dr. Kranthi Kramer Work Phone: [facility] 06-11-2023 09:30-0400 Respiratory rate 18 /min Dr. Kranthi Kramer Work Phone: [facility] 06-11-2023 09:30-0400 SaO2% (BldA) [Mass fraction] 98 % Dr. Kranthi Kramer Work Phone: [facility] 06-11-2023 09:30-0400 Systolic blood pressure 128 mm[Hg] Dr. Kranthi Kramer Work Phone: [facility] 12-06-2022 10:23-0500 Body height 160.[address] Kranthi Kramer Work Phone: [facility] 12-06-2022 10:23-0500 Body mass index (BMI) [Ratio] 28.1 kg/m2 Dr. Kranthi Kramer Work Phone: [facility] 12-06-2022 10:23-0500 Body weight 72.[address] Kranthi Kramer Work Phone: [facility] 11-23-2022 13:40-0500 Body mass index (BMI) [Ratio] 27.8 kg/m2 Dr. Kranthi Kramer Work Phone: [facility] 11-23-2022 13:40-0500 Body temperature 95 [degF] Dr. Kranthi Kramer Work Phone: [facility] 11-23-2022 13:40-0500 Body weight 71.[address] Kranthi Kramer Work Phone: [facility] 11-23-2022 13:40-0500 Diastolic blood pressure 82 mm[Hg] Dr. Kranthi Kramer Work Phone: [facility] 11-23-2022 13:40-0500 Heart rate 67 /min Dr. Kranthi Kramer Work Phone: [facility] 11-23-2022 13:40-0500 Respiratory rate 18 /min Dr. Kranthi Kramer Work Phone: [facility] 11-23-2022 13:40-0500 SaO2% (BldA) [Mass fraction] 97 % Dr. Kranthi Kramer Work Phone: [facility] 11-23-2022 13:40-0500 Systolic blood pressure 134 mm[Hg] Dr. Kranthi Kramer Work Phone: [facility] 11-02-2022 11:52-0500 Diastolic blood pressure 92 mm[Hg] Dr. Kranthi Kramer Work Phone: [facility] 11-02-2022 11:52-0500 Heart rate 74 /min Dr. Kranthi Kramer Work Phone: [facility] 11-02-2022 11:52-0500 Systolic blood pressure 169 mm[Hg] Dr. Kranthi Kramer Work Phone: [facility] 10-30-2022 09:55-0500 Body height 160.[address] Kranthi Kramer Work Phone: [facility] 10-30-2022 09:55-0500 Body mass index (BMI) [Ratio] 26.7 kg/m2 Dr. Kranthi Kramer Work Phone: [facility] 10-30-2022 09:55-0500 Body temperature 97.9 [degF] Dr. Kranthi Kramer Work Phone: [facility] 10-30-2022 09:55-0500 Body weight 68.[address] Kranthi Kramer Work Phone: [facility] 10-30-2022 09:55-0500 Diastolic blood pressure 100 mm[Hg] Dr. Kranthi Kramer Work Phone: [facility] 10-30-2022 09:55-0500 Heart rate 66 /min Dr. Kranthi Kramer Work Phone: [facility] 10-30-2022 09:55-0500 Respiratory rate 16 /min Dr. Kranthi Kramer Work Phone: [facility] 01-30-2023 09:55-0500 SaO2% (BldA) [Mass fraction] 98 % Dr. Kranthi Kramer Work Phone: [facility] 10-30-2022 09:55-0500 Systolic blood pressure 140 mm[Hg] Dr. Kranthi Kramer Work Phone: [facility] 07-27-2022 14:02-0400 Body height 160.[address] Kranthi Kramer Work Phone: [facility] Work Phone: 07-27-2022 14:02-0400 Body mass index (BMI) [Ratio] 28 kg/m2 Dr. Kranthi Kramer Work Phone: [facility] 07-27-2022 14:02-0400 Body temperature 96.8 [degF] Dr. Kranthi Kramer Work Phone: [facility] 07-27-2022 14:02-0400 Body weight 71.[address] Kranthi Kramer Work Phone: [facility] 07-27-2022 14:02-0400 Diastolic blood pressure 94 mm[Hg] Dr. Kranthi Kramer Work Phone: [facility] 07-27-2022 14:02-0400 Heart rate 72 /min Dr. Kranthi Kramer Work Phone: [facility] 07-27-2022 14:02-0400 Respiratory rate 16 /min Dr. Kranthi Kramer Work Phone: [facility] 07-27-2022 14:02-0400 SaO2% (BldA) [Mass fraction] 97 % Dr. Kranthi Kramer Work Phone: [facility] 07-27-2022 14:02-0400 Systolic blood pressure 148 mm[Hg] Dr. Kranthi Kramer Work Phone: [facility] 07-24-2022 08:52-0400 Body mass index (BMI) [Ratio] 28 kg/m2 Dr. Kranthi Kramer Work Phone: [facility] 07-24-2022 08:52-0400 Body temperature 98 [degF] Dr. Kranthi Kramer Work Phone: [facility] 07-24-2022 08:52-0400 Body weight 71.[address] Kranthi Kramer Work Phone: [facility] 07-24-2022 08:52-0400 Diastolic blood pressure 97 mm[Hg] Dr. Kranthi Kramer Work Phone: [facility] 07-24-2022 08:52-0400 Heart rate 77 /min Dr. Kranthi Kramer Work Phone: [facility] 07-24-2022 08:52-0400 Respiratory rate 16 /min Dr. Kranthi Kramer Work Phone: [facility] 07-24-2022 08:52-0400 SaO2% (BldA) [Mass fraction] 98 % Dr. Kranthi Kramer Work Phone: [facility] 07-24-2022 08:52-0400 Systolic blood pressure 157 mm[Hg] Dr. Kranthi Kramer Work Phone: [facility] 04-25-2022 09:34-0400 Body height 160.[address] Kranthi Kramer Work Phone: [facility] Work Phone: 04-25-2022 09:34-0400 Body mass index (BMI) [Ratio] 26.4 kg/m2 Dr. Kranthi Kramer Work Phone: [facility] Work Phone: 04-25-2022 09:34-0400 Body temperature 97.1 [degF] Dr. Kranthi Kramer Work Phone: [facility] Work Phone: 04-25-2022 09:34-0400 Body weight 67.[address] Kranthi Kramer Work Phone: [facility] Work Phone: 04-25-2022 09:34-0400 Diastolic blood pressure 86 mm[Hg] Dr. Kranthi Kramer Work Phone: [facility] Work Phone: 04-25-2022 09:34-0400 Heart rate 64 /min Dr. Kranthi Kramer Work Phone: [facility] Work Phone: 04-25-2022 09:34-0400 Respiratory rate 16 /min Dr. Kranthi Kramer Work Phone: [facility] Work Phone: 04-25-2022 09:34-0400 SaO2% (BldA) [Mass fraction] 98 % Dr. Kranthi Kramer Work Phone: [facility] Work Phone: 04-25-2022 09:34-0400 Systolic blood pressure 142 mm[Hg] Dr. Kranthi Kramer Work Phone: [facility] Work Phone: 01-25-2022 09:12-0400 Body mass index (BMI) [Ratio] 26.7 kg/m2 Dr. Kranthi Kramer Work Phone: [facility] Work Phone: 01-25-2022 09:12-0400 Body temperature 98.7 [degF] Dr. Kranthi Kramer Work Phone: [facility] Work Phone: 01-25-2022 09:12-0400 Body weight 68.[address] Kranthi Kramer Work Phone: [facility] Work Phone: 01-25-2022 09:12-0400 Diastolic blood pressure 88 mm[Hg] Dr. Kranthi Kramer Work Phone: [facility] Work Phone: 01-25-2022 09:12-0400 Heart rate 74 /min Dr. Kranthi Kramer Work Phone: [facility] Work Phone: 01-25-2022 09:12-0400 Respiratory rate 14 /min Dr. Kranthi Kramer Work Phone: [facility] Work Phone: 01-25-2022 09:12-0400 SaO2% (BldA) [Mass fraction] 99 % Dr. Kranthi Kramer Work Phone: [facility] Work Phone: 01-25-2022 09:12-0400 Systolic blood pressure 126 mm[Hg] Dr. Kranthi Kramer Work Phone: [facility] Work Phone: 01-24-2022 08:36-0400 Body mass index (BMI) [Ratio] 26.8 kg/m2 Dr. Kranthi Kramer Work Phone: [facility] Work Phone: 01-24-2022 08:36-0400 Body temperature 97.5 [degF] Dr. Kranthi Kramer Work Phone: [facility] Work Phone: 01-24-2022 08:36-0400 Body weight 68.[address] Kranthi Kramer Work Phone: [facility] Work Phone: 01-24-2022 08:36-0400 Diastolic blood pressure 97 mm[Hg] Dr. Kranthi Kramer Work Phone: [facility] Work Phone: 01-24-2022 08:36-0400 Heart rate 77 /min Dr. Kranthi Kramer Work Phone: [facility] Work Phone: 01-24-2022 08:36-0400 Respiratory rate 18 /min Dr. Kranthi Kramer Work Phone: [facility] Work Phone: 01-24-2022 08:36-0400 SaO2% (BldA) [Mass fraction] 96 % Dr. Kranthi Kramer Work Phone: [facility] Work Phone: 01-24-2022 08:36-0400 Systolic blood pressure 130 mm[Hg] Dr. Kranthi Kramer Work Phone: [facility] Work Phone: 10-14-2021 08:52-0500 Body height 160.[address] Kranthi Kramer Work Phone: [facility] Work Phone: 10-14-2021 08:52-0500 Body mass index (BMI) [Ratio] 25.8 kg/m2 Dr. Kranthi Kramer Work Phone: [facility] Work Phone: 10-14-2021 08:52-0500 Body temperature 98.8 [degF] Dr. Kranthi Kramer Work Phone: [facility] Work Phone: 10-14-2021 08:52-0500 Body weight 66.[address] Kranthi Kramer Work Phone: [facility] Work Phone: 10-14-2021 08:52-0500 Diastolic blood pressure 82 mm[Hg] Dr. Kranthi Kramer Work Phone: [facility] Work Phone: 10-14-2021 08:52-0500 Heart rate 76 /min Dr. Kranthi Kramer Work Phone: [facility] Work Phone: 10-14-2021 08:52-0500 Respiratory rate 14 /min Dr. Kranthi Kramer Work Phone: [facility] Work Phone: 10-14-2021 08:52-0500 SaO2% (BldA) [Mass fraction] 96 % Dr. Kranthi Kramer Work Phone: [facility] Work Phone: 10-14-2021 08:52-0500 Systolic blood pressure 140 mm[Hg] Dr. Kranthi Kramer Work Phone: [facility] Work Phone: 10-11-2021 10:18-0500 Body mass index (BMI) [Ratio] 25.4 kg/m2 Dr. Kranthi Kramer Work Phone: [facility] Work Phone: 10-11-2021 10:18-0500 Body temperature 97.3 [degF] Dr. Kranthi Kramer Work Phone: [facility] Work Phone: 10-11-2021 10:18-0500 Body weight 65.[address] Kranthi Kramer Work Phone: [facility] Work Phone: 10-11-2021 10:18-0500 Diastolic blood pressure 73 mm[Hg] Dr. Kranthi Kramer Work Phone: [facility] Work Phone: 10-11-2021 10:18-0500 Heart rate 68 /min Dr. Kranthi Kramer Work Phone: [facility] Work Phone: 10-11-2021 10:18-0500 Respiratory rate 16 /min Dr. Kranthi Kramer Work Phone: [facility] Work Phone: 10-11-2021 10:18-0500 SaO2% (BldA) [Mass fraction] 97 % Dr. Kranthi Kramer Work Phone: [facility] Work Phone: 10-11-2021 10:18-0500 Systolic blood pressure 135 mm[Hg] Dr. Kranthi Kramer Work Phone: [facility] Work Phone: Encounters Encounter Date Encounter Type Care Provider Facility Start: 06-04-2025 End: 06-04-[address] Kranthi Kramer MD Work Phone: [facility] Start: 06-04-2025 End: 06-04-[address] Kranthi Kramer MD -[facility] Work Phone: Start: 04-02-2025 End: 04-02-[address] Kranthi Kramer MD -[facility] Work Phone: Start: 04-02-2025 End: 04-02-[address] Kranthi Kramer MD Work Phone: -[facility] Start: 03-18-2025 End: 03-18-[address] Krant[facility] [facility] Work Phone: Start: 03-18-2025 End: 03-18-[address] Kranthi Kramer MD Work Phone: [facility] Work Phone: Start: 03-09-2025 End: 03-09-[address] Kranthi Kramer MD Work Phone: [facility] Work Phone: Start: 03-09-2025 End: 03-09-[address] Kranthi Kramer MD -Physical Therapy Work Phone: Start: 02-04-[address] Karen Kramer MD -Physical Therapy Work Phone: Start: 01-29-2025 End: 01-29-[address] Kranthi Kramer MD Work Phone: [facility] Work Phone: Start: 01-29-2025 End: 01-29-[address] Kranthi Kramer MD -Outpatient Breast Imaging Work Phone: Start: 01-29-2025 End: 01-29-2025 ambulatory Kranthi Kramer Facility:[facility] Start: 12-24-2024 End: 12-24-[address] Kranthi Kramer MD -[facility] Work Phone: Start: 12-24-2024 End: 12-24-[address] Kranthi Kramer MD Work Phone: [facility] Work Phone: Start: 12-24-2024 End: 12-24-2024 ambulatory Kranthi Kramer Facility:[facility] Start: 11-13-2024 End: 11-13-2024 Patient encounter procedure Robe SOLIS -Radiology, [place] Work Phone: Start: 11-13-2024 End: 11-13-2024 Patient encounter procedure Robe SOLIS -[facility] Work Phone: Start: 11-13-2024 End: 11-13-2024 ambulatory Efdeniz Kramer Facility:[facility] Start: 11-13-2024 End: 11-13-2024 ambulatory Efdeniz Kramer Facility:[facility] Start: 10-24-2024 ambulatory Efdeniz Kramer Facili ty:[facility] Start: 09-29-2024 End: 09-29-[address] Kranthi Kramer MD -[facility] Work Phone: Start: 09-29-2024 End: 09-29-2024 ambulatory Kranthi Kramer Facility:[facility] Start: 09-29-2024 End: 09-29-2024 ambulatory [facility] Facility:[facility] Start: 07-08-2024 End: 07-08-2024 ambulatory Clarebrocketnavin Kramer Facility:[facility] Start: 05-29-2024 End: 05-29-2024 ambulatory Clarechrisnavin Kramer Facility:[facility] Start: 12-27-2023 End: 12-27-[address] Kranthi Kramer Work Phone: [facility] Work Phone: Start: 12-27-2023 End: 12-27-[address] Kranthi Kramer Work Phone: [facility]-Outpatient Breast Imaging Work Phone: Start: 09-27-2023 End: 09-27-[address] Kranthi Kramer Work Phone: [facility] Work Phone: Start: 09-27-2023 End: 09-27-[address] Kranthi Kramer Work Phone: [facility]-Medical Out Work Phone: Start: 09-10-2023 End: 09-10-2023 Encounter for general adult medical examination without abnormal findings Dr. Kranthi Kramer Work Phone: [facility] Start: 09-10-2023 End: 09-10-[address] Kranthi Kramer Work Phone: [facility] Work Phone: Start: 09-03-2023 End: 09-03-[address] Kranthi Kramer Work Phone: [facility] Work Phone: Start: 09-03-2023 End: 09-03-[address] Kranthi Kramer Work Phone: [facility]-Laboratory, [place] Start: 07-24-2023 End: 07-24-[address] Kranthi Kramer Work Phone: [facility]-Pulmonary Medicine [facility] Work Phone: Start: 06-11-2023 End: 06-11-[address] Kranthi Kramer Work Phone: [facility] Work Phone: Start: 06-11-2023 End: 06-11-[address] [facility] [place] Start: 06-11-2023 End: 06-11-[address] Kranthi Kramer Work Phone: [facility] Internal Medicine Work Phone: Start: 12-20-2022 End: 12-20-[address] Kranthi Kramer Work Phone: [facility] Work Phone: Start: 12-20-2022 End: 12-20-[address] Kranthi Kramer Work Phone: [facility]-Outpatient Bone Densitometry Start: 12-06-2022 End: 12-06-[address] Kranthi Kramer Work Phone: [facility] Start: 11-23-2022 End: 11-23-[address] Kranthi Kramer Work Phone: [facility] Internal Medicine Start: 11-02-2022 End: 11-02-[address] Kranthi Kramer Work Phone: [facility] Internal Medicine Start: 10-30-[address] Kranthi Kramer Work Phone: [facility] Start: 10-30-2022 End: 10-30-[address] Kranthi Kramer Work Phone: [facility] Work Phone: Start: 10-30-2022 End: 10-30-2022 Encounter for general adult medical examination without abnormal findings Dr. Kranthi Kramer Work Phone: [facility] Start: 10-30-2022 End: 10-30-[address] Kranthi Santos Phone: [facility] Internal Medicine Start: 09-07-2022 End: 09-07-[address] Kranthi Kramer Work Phone: [facility] Work Phone: Start: 09-07-2022 End: 09-07-[address] Kranthi Kramer Work Phone: [facility]-Physical Therapy Start: 07-31-2022 End: 07-31-[address] Kranthi Kramer Work Phone: [facility] Radiology Start: 07-27-2022 End: 07-27-[address] Kranthi Kramer Work Phone: [facility] Work Phone: Start: 07-27-2022 End: 07-27-[address] Kranthi Kramer Work Phone: [facility] Internal Medicine Start: 07-24-2022 End: 07-24-[address] [facility] Start: 05-09-2022 End: 05-09-[address] Kranthi Kramer Work Phone: [facility]-Sleep Lab Start: 04-25-2022 End: 04-25-[address] [facility]rant[facility] Start: 01-25-2022 End: 01-25-[address] Kranthi Kramer Work Phone: [facility] Internal Medicine Start: 01-24-2022 End: 01-24-[address] Krant[facility]ramer [facility] Start: 01-03-2022 End: 01-03-[address] [facility] Start: 11-29-2021 End: 11-29-[address] Kranthi Kramer Work Phone: [facility]-Outpatient Breast Imaging Start: 11-10-2021 End: 11-10-[address] Kranthi Kramer Work Phone: [facility]-Sleep Lab Start: 10-14-2021 End: 10-14-[address] Kranthi Kramer Work Phone: [facility]-Laboratory, [facility] Start: 10-11-2021 End: 10-11-[address] Krant[facility] Kramer [facility] Start: 06-19-2017 End: 07-09-2017 Ambulatory ELMER VELAZQUEZ [facility] Start: 05-31-2017 End: 06-06-2017 Ambulatory BROOKE (REGULATORY ATTORNEY) JARROD [facility] Start: 05-17-2017 End: 05-23-2017 Ambulatory MARY MOCK [facility] Procedures Date Procedure Procedure Detail Performing Clinician Start: 01-29-2025 Screening mammography Trey Kramer MD Work Phone: Start: 11-13-2024 X-ray of cervical spine Dr. Kranthi Kramer MD Work Phone: Start: 12-27-2023 Screening mammography Trey Kramer Work Phone: Start: 12-20-2022 Dual energy X-ray absorptiometry Dr. Kranthi Kramer Work Phone: Start: 12-20-2022 Screening mammography Trey Kramer Work Phone: Start: 11-23-2022 Plain x-ray of elbow Dr Kaitlynn Kramer Work Phone: Start: 07-31-2022 Plain x-ray of pelvi s and lower extremity Dr. Kranthi Kramer Work Phone: Start: 11-29-2021 Screening mammography Trey Kramer Work Phone: Plan of Treatment Date Care Activity Detail Author Start: 12-24-2024 Patient referral [facility] Work Phone: Start: 09-27-2023 Iv infusion therapy/prophylaxis /dx 1st to 1 hr THER/PROPH/DIAG IV INF INIT [facility] Start: 10-30-2022 Patient referral [facility] Work Phone: CBC W Auto Different ial panel - Blood [facility] CBC W Auto Different ial panel - Blood [facility] Comprehensive metabo lic 2000 panel - Serum or Plasma [facility] DXA Bone [Mass/Area] Bone density [facility] Lipid 1996 panel - S henry or Plasma [facility] MG Breast - bilatera l Screening [facility] Patient referral [facility] Work Phone: T4 free measurement [facility] Thyroid stimulating hormone measurement [facility] XR Shoulder GE 2 Views [facility] Immunizations Immunization Date Immunization Notes Care Provider Fa radha 07-02-2023 Seasonal, quadrivale nt, recombinant, injectable influenza vaccine, preservative free Dr. Kranthi Kramer Work Phone: [facility] 10-11-2022 Covid Pfizer Bivalen t Booster Dr. Kranthi Kramer Work Phone: [facility] 07-27-2022 influenza, injectabl e, quadrivalent, preservative free Dr. Kranthi Kramer Work Phone: [facility] 07-27-2022 influenza, seasonal, injectable Dr. Kranthi Kramer Work Phone: [facility] 02-15-2022 Covid (Pfizer) Dr. Kranthi rKamer Work Phone: [facility] 07-14-2021 Covid (Pfizer) Dr. Kranthi Kramer Work Phone: [facility] 12-29-2020 Covid (Pfizer) Dr. Kranthi Kramer Work Phone: [facility] 12-08-2020 Covid (Pfizer) Dr. Kranthi Kramer Work Phone: [facility] 06-23-2020 influenza, injectabl e, quadrivalent, preservative free Dr. Kranthi Kramer Work Phone: [facility] 06-23-2020 influenza, seasonal, injectable Dr. Kranthi Kramer Work Phone: [facility] 06-23-2020 Fluad Quad [id number](65yr up)(PF) 60 mcg (15 mcg x 4)/0.5mL IM syringe (flu vac Dr. Kranthi Kramer Work Phone: [facility] Work Phone: 07-08-2019 pneumococcal conjuga te vaccine, [address] Kranthi Kramer Work Phone: [facility] 07-08-2019 pneumococcal vaccine , unspecified formulation Dr. Kranthi Kramer Work Phone: [facility] Work Phone: 07-05-2019 influenza, injectabl e, quadrivalent, preservative free Dr. Kranthi Kramer Work Phone: [facility] 07-05-2019 influenza, seasonal, injectable Dr. Kranthi Kramer Work Phone: [facility] 08-06-2018 pneumococcal conjuga te vaccine, [address] Kranthi Kramer Work Phone: [facility] 08-06-2018 pneumococcal vaccine , unspecified formulation Dr. Kranthi Kramer Work Phone: [facility] Work Phone: Payers Date Payer Category Payer Self-pay [id number] 2023 Unknown [id number] Medicare [id number] Medicare [id number] Private Health Insurance [facility] [id number] Unknown [id number] Unknown [id number] Unknown [id number] Unknown [id number] 2.16.8 [id number] Unknown [id number] 2.16.8 [id number] Unknown [id number] 2.16.8 [id number] Unknown [id number] 2.16.8 [id number] Unknown [id number] 2.16.8 [id number] Unknown [id number] 2.16.8 [id number] Unknown [id number] 2.16.8 [id number] Unknown [id number] 2.16.8 [id number] Unknown [id number] 2.16.8 [id number] Unknown [id number] 2.16.8 [id number] Unknown [id number] 2.16.8 [id number] Unknown [id number] 2.16.8 [id number] Unknown [id number] 2.16.8 [id number] Social History Date Type Detail Facility Start: 10-14-2021 End: 09-10-2023 Tobacco smoking status NHIS Unknown if ever smoked [facility] Start: 1955 Sex Assigned At Female W [facility] Start: 09-10-2023 Tobacco smoking stat us TXIS Never smoked tobacco (finding) [facility] Start: 12-29-2024 Sex Female (finding) [facility] Mental Status Date Assessment Result Facility 09-27-2023 Cognitive function Voice/Name [facility] Work Phone: Clinical Notes 09-29-2024 to 03-18-2025 Note Date & Type Note Facility 03-18-2025 Evaluation note Diagnosis Onset Date Resolution Bilateral lower extremity edema chronic March 18, 2025 5:40pm Hypertension chronic March 18, 2 025 5:40pm Dermatitis acute April 02, 2025 2:02pm Right buttock pain acute April 022024 2:02pm Bilateral lower extremity edema chronic April 02, 2025 2 :02pm Hypertension chronic April 02 2:02pm [facility] Work Phone: 1(582) 563-247706-09-2025 Discharge summary [facility] Physical Therapy [facility] [address] [place] [address] / REHABILITATION SERVICES DISCHARGE SUMMARY MR#: [id number] Acct: [id number] Name: SONAL CONROY Rep #: [id number] : 1955 70 From: Geoff Perez DPT, OCS, CSCS Referring Dr.: Dr. Kranthi Kramer MD Status : REG RCR Insurance: [employer]URANCE Discharge Summary D/C summary: It has been my pleasure to treat SONAL CONROY referred by Dr. Kranthi Kramer MD, with the diagnosis of vertigo for a total of 15 visit(s). Discharge Date: 03/09/25 Please see the following information for a summary of their discharge status. Subjective Subjective: L rotation still feels limited but not painful. Turning better in the car. Pain is not bad , up to 3/10 with rotating L only. Sleep is OK. No spinning lately. Activities are pretty normal. To Dr. Kramer next month. Pain neck: Pain Intensity (Out of 10): 3 Overall Improvement % Improvement: 90 Objective Objective/Function: 65 R rotation, 62 L rotation, 65 ext, n pain. No wincing. - c/s comrpession. No spinning or pain today. Goals Goal 1:: abolish dizzy feeling in am Goal Progress: Goal Met Goal 2:: FGA Goal Progress: Goal Met Goal 3:: Neck pain 50% better and 3/10 at worst and manageable Goal Progress: Goal Met Goal 4:: DHI score 20 or better Goal Progress: Goal Met Goal 5:: I appropriate management of condition Goal Progress: Goal Met Goal 6:: rotate head L without pain to turn head in car without wincing. Goal Progress: Goal Met Plan Plan: d/c to [facility] D/C Information d/c sentence: If there are questions or concerns regarding this patient's physical therapy, please feel free to call me at [phone]. Thank you for the referral of thispatient. Sincerely, Geoff Perez DPT, OCS, CSCS Balance/Gait/Functional tests Balance/Special Test Scores Functional Gait Assessment Score: 29 % Disability: 3.3400 CATSIB Score (Max score 120 seconds): 105 Dizziness Score: 0 Improvement % Improvement: 90 03/09/25 1310 CC: Dr. Kranthi Kramer MD ~ EBG Signed [facility]06-09-2025 Discharge summary Author Geoff Perez [facility] Note Date/Time March 09, 2025 2:11p m [facility] Physical Therapy [facility] [address] [place] [address] [address] [place] [address] / REHABILITATION SERVICES DISCHARGE SUMMARY MR#: [id number] Acct: [id number] Name: SONAL CONROY Rep #: [id number] : 1955 70 From: Geoff Perez DPT, OCS, CSCS Referring Dr.: Dr. Kranthi Kramer MD Status : REG R Insurance: [employer] INSURANCE Discharge Summary D/C summary: It has been my pleasure to treat SONAL CONROY referred by Dr. Kranthi Kramer MD, with the diagnosis of vertigo for a total of 15 visit(s). Discharge Date: 03/09/25 Please see the following information for a summary of their discharge status. Subjective Subjective: L rotation still feels limited but not painful. Turning better in the car. Pain is not bad , up to 3/10 with rotating L only. Sleep is OK. No spinning lately. Activities are pretty normal. To Dr. Kramer next month. Pain neck: Pain Intensity (Out of 10): 3 Overall Improvement % Improvement: 90 Objective Objective/Function: 65 R rotation, 62 L rotation, 65 ext, n pain. No wincing. - c/s comrpession. No spinning or pain today. Goals Goal 1:: abolish dizzy feeling in am Goal Progress: Goal Met Goal 2:: FGA Goal Progress: Goal Met Goal 3:: Neck pain 50% better and 3/10 at worst and manageable Goal Progress: Goal Met Goal 4:: DHI score 20 or better Goal Progress: Goal Met Goal 5:: I appropriate management of condition Goal Progress: Goal Met Goal 6:: rotate head L without pain to turn head in car without wincing. Goal Progress: Goal Met Plan Plan: d/c to [facility] D/C Information d/c sentence: If there are questions or concerns regarding this patient's physical therapy, please feel free to call me at [phone]. Thank you for the referral of thispatient. Sincerely, Geoff Perez, CARROLL, OCS, CSCS Balance/Gait/Functional tests Balance/Special Test Scores Functional Gait Assessment Score: 29 % Disability: 3.3400 CATSIB Score (Max score 120 seconds): 105 Dizziness Score: 0 Improvement % Improvement: 90 <Electronically signed by Geoff Perez DPT, OCS, CSCS> 03/09/25 1310 CC: Dr. Kranthi Kramer MD ~ EBG Signed [facility] Work Phone: 1([phone]) 236-451803-26-2025 Evaluation note* Diagnosis Onset Date Resolution Status Admit Date Neck pain acute December 24 10:08am Vertigo acute December 24 10:08am Hyperlipidemia chronic November 10:08am Hypertension chronic December 24, 2024 10:08am [facility] Work Phone: 1(728) 916-187403-26-2025 Evaluation note* Diagnosis Onset Date Resolution Status Admit Date Neck pain acute December 24 10:08am Vertigo acute December 24 10:08am Hyperlipidemia chronic November 10:08am Hypertension chronic December 24, 2024 10:08am Bilateral lower extremity edema gaming host mirian March 18, 2025 5:40pm Hypertension chronic March 18, 2 025 5:40pm [facility] Work Phone: 1([phone] 453-787602-13-2025 Evaluation note* Diagnosis Onset Date Resolution Status Admit Date Neck pain acute November 13, 2024 2:41pm Neck pain acute December 24 10:08am Vertigo acute December 24 10:08am Hyperlipidemia chronic November 10:08am Hypertension chronic December 24, 2024 10:08am [facility] Work Phone: [phone] 856-150612-30-2024 Evaluation note* Diagnosis Onset Date Resolution Status Admit Date GERD (gastroesophageal reflu x disease) chronic September 29, 2 024 10:36am Hyperlipidemia chronic September 022023 10:36am Hypertension chronic August 10:36am SABINA (obstructive sleep apnea) chroni c September 29, 2024 10:36am Neck pain acute November 13, 2024 2:41pm Neck pain acute December 24 10:08am Vertigo acute December 24 10:08am Hyperlipidemia chronic November 10:08am Hypertension chronic December 24, 2024 10:08am [facility] Work Phone: Evaluation note* Diagnosis Onset Date Resolution Status SABINA (obstructive sleep apnea) chronic Abnormal thyroid function test acute GERD (gastroesophageal reflux disease) chronic Hypertension chronic Irritable bowel syndrome chr onic [facility] Work Phone: Evaluation note* Diagnosis Onset Date Resolution Status SABINA (obstructive sleep apnea) chronic Hypertension chronic Irritable bowel syndrome [facility] SABINA (obstructive sleep apnea) chronic SABINA (obstructive sleep apnea) [facility] Work Phone: Evaluation note* Diagnosis Onset Date Resolution Status SABINA (obstructive sleep apnea) chronic SABINA (obstructive sleep apnea) chronic Flu vaccine need acute Hypertension chronic Right hip pain chronic Right thigh pain chronic [facility] Work Phone: Evaluation note* Diagnosis Onset Date Resolution Status SABINA (obstructive sleep apnea) chronic Flu vaccine need acute Hypertension chronic Right hip pain chronic Right thigh pain chronic [facility] Work Phone: Evaluation note* Diagnosis Onset Date Resolution Status SABINA (obstructive sleep apnea) chronic Flu vaccine need acute Hypertension chronic Right hip pain chronic Right thigh pain chronic Health care maintenance acut e GERD (gastroesophageal reflux disease) chronic Hypertension chronic Right hip pain [facility] Work Phone: Evaluation note* Diagnosis Onset Date Resolution Status Health care maintenance acut e GERD (gastroesophageal reflux disease) chronic Hypertension chronic Right hip pain chronic Right elbow pain chronic Right elbow pain [facility] Work Phone: Evaluation note* Diagnosis Onset Date Resolution Status Bilateral lower extremity edema chronic Chronic back pain chronic Hypertension chronic Osteoporosis [facility] Work Phone: Evaluation note* Diagnosis Onset Date Resolution Status Bilateral lower extremity edema chronic Chronic back pain chronic Hypertension chronic Osteoporosis chronic SABINA (obstructive sleep apnea) [facility] Work Phone: Evaluation note* Diagnosis Onset Date Resolution Status Bilateral lower extremity edema chronic Chronic back pain chronic Hypertension chronic Osteoporosis chronic SABINA (obstructive sleep apnea) chronic Health care maintenance acut e URI (upper respiratory infection) acute Hypertension chronic Osteoporosis [facility] Work Phone: Evaluation note* Diagnosis Onset Date Resolution Status Health care maintenance acut e URI (upper respiratory infection) acute Hypertension chronic Osteoporosis [facility] Work Phone: Reason for referral (narrative)No reason for referral [facility] Work Phone: Summary Purpose Family History Relationship Condition Age at Onset Recorded Date/T nitza mother Hypertension Unknown father Cerebrovascular accident (CVA) Unknown son Hypertension Unknown Obstructive sleep apnea syndrome Unknown Advance Directives Advance Directive Response Recorded Date/ Time Living Will Yes May 08, 2017 11:58am Power of Machine Coil Assembler No May 08 11:58am Advance Directive Response Recorded Date/ Time Living Will Yes May 08, 2017 10:58am Power of Machine Coil Assembler No May 08 10:58am Advance Directive Response Recorded Date/ Time Living Will Yes May 08, 2017 11:58am Do you have a Healthcare Power of Machine Coil Assembler? No May 08, 2017 11:58am Chief Complaint and Reason for Visit Chief Complaint 3 M FU 3 M FU SABINA SCREENING NEW AUTOBIPAP-INVENTORY TAGGED Reason for Visit SABINA (obstructive sle ep apnea) Abnormal thyroid function test GERD (gastroesophageal reflux disease) Hypertension Irritable bowel syndrome Chief Complaint 3m 3 M FU 3 M FU Obstructive sleep apnea (adult) (pediatric) Reason for Visit SABINA (obstructive sle ep apnea) Hypertension Irritable bowel syndrome SABINA (obstructive sleep apnea) SABINA (obstructive sleep apnea) Chief Complaint 3 M FU Obstructive sleep apnea (adult) (pediatric) 3 M FU 6 M FU XRAY Reason for Visit SABINA (obstructive sle ep apnea) SABINA (obstructive sleep apnea) Flu vaccine need Hypertension Right hip pain Right thigh pain Chief Complaint 3 M FU 6 M FU XRAY PN IN R HIP,THIGH/RX HERE Reason for Visit SABINA (obstructive sle ep apnea) Flu vaccine need Hypertension Right hip pain Right thigh pain Chief Complaint 3 M FU 6 M FU XRAY PN IN R HIP,THIGH/RX HERE 3 M FU bp check Reason for Visit SABINA (obstructive sle ep apnea) Flu vaccine need Hypertension Right hip pain Right thigh pain Health care maintenance GERD (gastroesophageal reflux disease) Hypertension Right hip pain Chief Complaint PN IN R HIP,THIGH/RX HERE 3 M FU bp check R ARM PAIN XRAY RIGHT ELBOW POST MENOPAUSAL Reason for Visit [facility] GERD (gastroesophageal reflux disease) Hypertension Right hip pain Right elbow pain Right elbow pain Chief Complaint 4 M FU Reason for Visit Bilateral lower extr emity edema Chronic back pain Hypertension Osteoporosis Chief Complaint 4 M FU 1 Y FU Reason for Visit Bilateral lower extr emity edema Chronic back pain Hypertension Osteoporosis SABINA (obstructive sleep apnea) Chief Complaint 4 M FU 1 Y FU YEARLY reclast Reason for Visit Bilateral lower extr emity edema Chronic back pain Hypertension Osteoporosis SABINA (obstructive sleep apnea) Health care maintenance URI (upper respiratory infection) Hypertension Osteoporosis Chief Complaint YEARLY reclast SCREENING Reason for Visit Health care [facility] n[facility] URI (upper respiratory infection) Hypertension Osteoporosis Chief Complaint Admit Date 4 M FU September 29, 2024 10:36am ACUTE - PAIN IN NECK/PINCHED NERVE? Febr uary 2024 2:41pm E-ORDER November 13, 2024 3:58pm Dizziness (cardiology) December 24, 2024 10:08am Reason for Visit Admit Date GERD (gastroesophageal reflux disease) D ecember 2023 10:36am Hyperlipidemia September 29, 2024 10:36am Hypertension September 29, 2024 10:36am SABINA (obstructive sleep apnea) September 022023 10:36am Neck pain November 13, 2024 2:41pm Neck pain December 24, 2024 10: 08am Vertigo December 24, 2024 10: 08am Hyperlipidemia December 24, 2024 10: 08am Hypertension December 24, 2024 10: 08am Chief Complaint Admit Date ACUTE - PAIN IN NECK/PINCHED NERVE? Febr 2024 2:41pm E-ORDER November 13, 2024 3:58pm Dizziness (cardiology) December 24, 2024 10:08am Breast cancer screening January 29, 2025 9: 55am VERTIGO. RX HERE February 04, 2025 10:00a m Reason for Visit Admit Date Neck pain November 13, 2024 2:41pm Neck pain December 24, 2024 10: 08am Vertigo December 24, 2024 10: 08am Hyperlipidemia December 24, 2024 10: 08am Hypertension December 24, 2024 10: 08am Chief Complaint Admit Date ACUTE - PAIN IN NECK/PINCHED NERVE? Febr [facility] 2024 2:41pm E-ORDER November 13, 2024 3:58pm Dizziness (cardiology) December 24, 2024 10:08am Breast cancer screening January 29, 2025 9: 55am VERTIGO. RX HERE March 09, 2025 12:30 pm Chief Complaint Admit Date Dizziness (cardiology) December 24, 2024 10:08am Breast cancer screening January 29, 2025 9: 55am VERTIGO. RX HERE March 09, 2025 12:30 pm SWELLING IN BOTH FEET March 18, 2025 5: 40pm Reason for Visit Admit Date Neck pain December 24, 2024 10: 08am Vertigo December 24, 2024 10: 08am Hyperlipidemia December 24, 2024 10: 08am Hypertension December 24, 2024 10: 08am Chief Complaint Admit Date Dizziness (cardiology) December 24, 2024 10:08am Breast cancer screening January 29, 2025 9: 55am VERTIGO. RX HERE March 09, 2025 12:30 pm SWELLING IN BOTH FEET March 18, 2025 5: 40pm 3 M FU April 02, 2025 2:02p m Reason for Visit Admit Date Neck pain December 24, 2024 10: 08am Vertigo December 24, 2024 10: 08am Hyperlipidemia December 24, 2024 10: 08am Hypertension December 24, 2024 10: 08am Bilateral lower extremity edema March 5:40pm Hypertension March 18, 2025 5:40 pm Chief Complaint Admit Date VERTIGO. RX HERE March 09, 2025 12:30 pm SWELLING IN BOTH FEET March 18, 2025 5: 40pm 3 M FU April 02, 2025 2:02p m 2 M FU June 04, 2025 1:55pm Reason for Visit Admit Date Bilateral lower extremity edema March 5:40pm Hypertension March 18, 2025 5:40 pm Dermatitis April 02, 2025 2:02p m Right buttock pain April 02, 2025 2:02p m Bilateral lower extremity edema March 2:02pm Hypertension April 02, 2025 2:02p m Additional Source Comments INFORMATION SOURCE (unrecogn ized section and content) DATE CREATED AUTHOR 03/26/2018 [facility] DATE CREATED AUTHOR AUTHOR'S ORGANIZ ATION 05/10/2025 [facility] Goals (unrecognized section and content) Goals may be documented in a n alternate sectionGoals may be documented in an alternate sectionGoals may be documented in an alternate sectionGoals may be documented in an alternate sectionGoals may be documented in an alternate sectionGoals may be documented in an alternate sectionGoals may be documented in an alternate sectionGoals may be documented in an alternate sectionGoals may be documented in an alternate sectionGoals may be documented in an alternate sectionGoals may be documented in an alternate sectionGoals may be documented in an alternate sectionGoals may be documented in an alternate sectionGoals may be documented in an alternate sectionGoals may be documented in an alternate sectionGoals may be documented in an alternate section Care Teams (unrecognized sec tion and content) Team Status: Active Member Role Status Dates Dr. Kranthi Kramer MD Family Provider Active Dr. Kranthi Kramer MD Primary Care Provider Active Team Status: Inactive Member Role Status Dates Dr. Kranthi Kramer MD Primary Care Lilian reaves, Attending Provider, Referring Provider Active Team Status: Inactive Member Role Status Dates Dr. Kranthi Kramer MD Primary Care Provider, Refer ring Provider Active Dr. Aly House DO Attending Provider Active Team Status: Inactive Member Role Status Dates Dr. Kranthi Kramer MD Primary Care Provider Active Dr. Luis Benitez MD Attending Provider Active Team Status: Inactive Member Role Status Dates Dr. Kranthi Kramer MD Primary Care Provider, Atten ding Provider Active Team Status: Inactive Member Role Status Dates Dr. Kranthi Kramer MD Primary Care Provider, Refer ring Provider Active Dr. Abran Bearden DO Attending Provider Active Team Status: Inactive Member Role Status Dates Dr. Kranthi Kramer MD Primary Care Provider, Refer ring Provider Active Mariela Ann NP, [employer]ASH FILTER OPERATOR-C Attending Provider Active Team Status: Active Member Role Status Dates Dr. Kranthi Kramer MD Primary Care Provider Active Team Status: Inactive Member Role Status Dates Dr. Kranthi Kramer MD Primary Care Provider Active Start: September 29, 2024 End: September 29, 2024 Dr. Kranthi Kramer MD Attending Provider Active Start: September 29, 2024 End: September 29, 2024 Dr. Kranthi Kramer MD Referring Provider Active Start: September 29, 2024 End: September 29, 2024 Team Status: Inactive Member Role Status Dates Dr. Kranthi Kramer MD Primary Care Provider Active Start: November 13, 2024 End: November 13, 2024 Dr. Kranthi Kramer MD Referring Provider Active Start: November 13, 2024 End: November 13, 2024 IRMA Segura Attending Provider Active St art: November 13, 2024 End: November 13, 2024 Team Status: Inactive Member Role Status Dates Dr. Kranthi Kramer MD Primary Care Provider Active Start: November 13, 2024 End: November 13, 2024 IRMA Segura Attending Provider Active St art: November 13, 2024 End: November 13, 2024 IRMA Segura Referring Provider Active St art: November 13, 2024 End: November 13, 2024 Team Status: Inactive Member Role Status Dates Dr. Kranthi Kramer MD Primary Care Provider Active Start: December 24, 2024 End: December 24, 2024 Dr. Kranthi Kramer MD Attending Provider Active Start: December 24, 2024 End: December 24, 2024 Dr. Kranthi Kramer MD Referring Provider Active Start: December 24, 2024 End: December 24, 2024 Team Status: Inactive Member Role Status Dates Dr. Kranthi Kramer MD Primary Care Provider Active Start: January 29, 2025 End: January 29, 2025 Dr. Kranthi Kramer MD Attending Provider Active Start: January 29, 2025 End: January 29, 2025 Dr. Kranthi Kramer MD Referring Provider Active Start: January 29, 2025 End: January 29, 2025 Team Status: Active Member Role Status Dates Dr. Kranthi Kramer MD Primary Care Provider Active Start: February 04, 2025 Dr. Kranthi Kramer MD Attending Provider Active Start: February 04, 2025 Dr. Kranthi Kramer MD Referring Provider Active Start: February 04, 2025 Team Status: Inactive Member Role Status Dates Dr. Kranthi Kramer MD Primary Care Provider Active Start: March 09, 2025 End: March 09, 2025 Dr. Kranthi Kramer MD Attending Provider Active Start: March 09, 2025 End: March 09, 2025 Dr. Kranthi Kramer MD Referring Provider Active Start: March 09, 2025 End: March 09, 2025 Team Status: Inactive Member Role Status Dates Dr. Kranthi Kramer MD Primary Care Provider Active Start: March 18, 2025 End: March 18, 2025 Dr. Kranthi Kramer MD Attending Provider Active Start: March 18, 2025 End: March 18, 2025 Dr. Kranthi Kramer MD Referring Provider Active Start: March 18, 2025 End: March 18, 2025 Team Status: Active Member Role/Relationship Status Dates Dr. Kranthi Kramer MD Primary Care Provider Active Team Status: Inactive Member Role/Relationship Status Dates Dr. Kranthi Kramer MD Primary Care Provider Active Start: December 24, 2024 End: December 24, 2024 Dr. Kranthi Kramer MD Attending Provider Active Start: December 24, 2024 End: December 24, 2024 Dr. Kranthi Kramer MD Referring Provider Active Start: December 24, 2024 End: December 24, 2024 Team Status: Inactive Member Role/Relationship Status Dates Dr. Kranthi Kramer MD Primary Care Provider Active Start: December 24, 2024 End: December 24, 2024 Dr. Kranthi Kramer MD Attending Provider Active Start: December 24, 2024 End: December 24, 2024 Dr. Kranthi Kramer MD Referring Provider Active Start: December 24, 2024 End: December 24, 2024 Team Status: Inactive Member Role/Relationship Status Dates Dr. Kranthi Kramer MD Primary Care Provider Active Start: January 29, 2025 End: January 29, 2025 Dr. Kranthi Kramer MD Attending Provider Active Start: January 29, 2025 End: January 29, 2025 Dr. Kranthi Kramer MD Referring Provider Active Start: January 29, 2025 End: January 29, 2025 Team Status: Inactive Member Role/Relationship Status Dates Dr. Kranthi Kramer MD Primary Care Provider Active Start: March 09, 2025 End: March 09, 2025 Dr. Kranthi Kramer MD Attending Provider Active Start: March 09, 2025 End: March 09, 2025 Dr. Kranthi Kramer MD Referring Provider Active Start: March 09, 2025 End: March 09, 2025 Team Status: Inactive Member Role/Relationship Status Dates Dr. Kranthi Kramer MD Primary Care Provider Active Start: March 18, 2025 End: March 18, 2025 Dr. Kranthi Kramer MD Attending Provider Active Start: March 18, 2025 End: March 18, 2025 Dr. Kranthi Kramer MD Referring Provider Active Start: March 18, 2025 End: March 18, 2025 Team Status: Inactive Member Role/Relationship Status Dates Dr. Kranthi Kramer MD Primary Care Provider Active Start: April 02, 2025 End: April 02, 2025 Dr. Kranthi Kramer MD Attending Provider Active Start: April 02, 2025 End: April 02, 2025 Dr. Kranthi Kramer MD Referring Provider Active Start: April 02, 2025 End: April 02, 2025 Team Status: Inactive Member Role/Relationship Status Dates Dr. Kranthi Kramer MD Primary Care Provider Active Start: March 09, 2025 End: March 09, 2025 Dr. Kranthi Kramer MD Attending Provider Active Start: March 09, 2025 End: March 09, 2025 Dr. Kranthi Kramer MD Referring Provider Active Start: March 09, 2025 End: March 09, 2025 Team Status: Inactive Member Role/Relationship Status Dates Dr. Kranthi Kramer MD Primary Care Provider Active Start: March 18, 2025 End: March 18, 2025 Dr. Kranthi Kramer MD Attending Provider Active Start: March 18, 2025 End: March 18, 2025 Dr. Kranthi Kramer MD Referring Provider Active Start: March 18, 2025 End: March 18, 2025 Team Status: Inactive Member Role/Relationship Status Dates Dr. Kranthi Kramer MD Primary Care Provider Active Start: April 02, 2025 End: April 02, 2025 Dr. Kranthi Kramer MD Attending Provider Active Start: April 02, 2025 End: April 02, 2025 Dr. Kranthi Kramer MD Referring Provider Active Start: April 02, 2025 End: April 02, 2025 Team Status: Inactive Member Role/Relationship Status Dates Dr. Kranthi Kramer MD Primary Care Provider Active Start: June 04, 2025 End: June 04, 2025 Dr. Kranthi Kramer MD Attending Provider Active Start: June 04, 2025 End: June 04, 2025 Dr. Kranthi Kramer MD Referring Provider Active Start: June 04, 2025 End: June 04, 2025 FOR RECORDS PERTAINING TO PATIENTS WHO ARE [...] BE BASED ON THE PRIMARY CLINICAL RECORDS. [facility]. provides no warranty or guarantee of the accuracy or completeness of information in this document.
== END | disposition home or self-care (01) ==
PROVIDERS: PCP Internal Medicine; Referring Provider Internal Medicine; Visit Provider Internal Medicine
DX: M25.512 Pain in left shoulder (principal); I10 Essential (primary) hypertension; E78.5 Hyperlipidemia, unspecified; K21.9 Gastro-esophageal reflux disease without esophagitis
CPT/HCPCS: 36415; 73030; 80053; 84439; 84443; 85025

== ENCOUNTER 2025-07-13 10:30 | Outpatient (RCR) | payer MEDICARE, SELFPAY ==
--- NOTE | 2025-06-17 19:34 | HP.PTEVAL_ITS ---
Patient's Visit Information Visit Information Visit Information: SONAL WILKES is a 70 year old F referred to Physical Therapy by Dr. Kranthi Kramer MD with a diagnosis of L shoulder pain. Date of Evaluation: 06/17/25 Physical Therapist: QUINTEN Stark Visit Plan Frequency: 2x /Week Duration: 2 Months Plan: 2X/ week for 8 weeks for MT to the L shoulder including mid trap, L shoulder PROM/AAROM/AROM, scapular and postural exercises, RC strength with HEP HEP: supine wand flexion Subjective Subjective: Pt reports that she has been here for c-spine pain. She has had L shoulder pain for awhile and now it gets worse. She uses hot pack at night. She has problems to reach behind her back. She has pins and needles in the L hand but she does have stiffness in her L hand. She is able to sleep at night. Her L shoulder feels more stiff in the morning. She is R handed. She had an x- ray and it showed mild arthritis. Her Dr said to go to PT. She can not lay on the L shoulder. She has constant pain but it gets worse at times. Pain L shoulder pain: Pain Intensity (Out of 10): 8 Objective Objective: R handed AROM Shoulder: (Pt R arm does not have all the bones as she broke it very badly as a kid so hard to compare strength side to side) R shoulder flex 141 and L 120 (pain R) IR T12 B ER R 55, L 61 UE MMT: R shoulder flex 5.9 and L 6.1 R shoulder ER 8.8 and L 11.7 (pt does demonstrate weakness and on the R side she has a previous major injury so can not compare sides) Very tender along the L AC joint and mid trap region. C-spine AROM Rotation B 50% with increase pain, flexion 100%, ext 20% with increase pain Pt reported tingling down her arm that was relieved with MH and some MT to the mid trap region Posture: rounded shoulders and protracted especially on the L. (Seems pt is guarding) Balance/Special Test Scores Quick DASH Score: 40.9075 Goals Goal 1:: I HEP Goal Time Frame: 6-8 Weeks Goal 2:: Decrease L shoulder pain by 50% Goal Time Frame: 6-8 Weeks Goal 3:: Increase L shoulder AROM (R shoulder flex 141 and L 120 (pain R) IR T12 B ER R 55, L 61) Goal Time Frame: 6-8 Weeks Goal 4:: Be able to sit with retracted shoulder and upright posture Goal Time Frame: 6-8 Weeks Rehabilitation Potential Rehabilitation Potential: Good Anticipated Interventions Patient/Client Instruction: Educate patient on: Condition and Plan of Care For the Purpose of:: To decrease pain, To increase ROM, To improve nutrient delivery to tissue, To improve muscle performance and motor function, To improve ability to perform ADL's, To increase tolerance to activity/condition/position, To improve performance and independence with ADL's, To decrease level of supervision to perform tasks, To improve health of tissue, To decrease soft tissue restriction and To increase flexibility/ROM Therapeutic Exercise to Include: Strength training, Postural training, Flexibilty training, Passive ROM, Active ROM and Scapular Strength/Stabilization For the Purpose of:: To decrease pain, To increase ROM, To improve nutrient delivery to tissue, To improve muscle performance and motor function, To improve ability to perform ADL's, To increase tolerance to activity/condition/position, To improve health of tissue, To decrease soft tissue restriction and To increase flexibility/ROM Manual Therapy Techniques to Include: Passive ROM and Soft tissue mobilization For the Purpose of:: To decrease pain, To increase ROM, To improve nutrient delivery to tissue, To improve ability to perform ADL's, To improve health of tissue, To decrease soft tissue restriction, To increase flexibility/ROM and To improve endurance Text: Thank you for the opportunity to evaluate your patient. For Medicare and Medicare HMO plans, please review the plan of care and approve it. It will need to be FAXED BACK to us at [phone] for Medicare purposes. For Medicare only, by signing this I certify the plan of care. Please let me know if there are questions or concerns regarding this plan of care. Physician Signature: Date:
--- NOTE | 2025-07-13 10:59 | HP.PTDCSUM ---
Discharge Summary D/C summary: It has been my pleasure to treat SONAL WILKES referred by Dr. Kranthi Kramer MD, with the diagnosis of L shoulder pain for a total of 7 visit(s). Discharge Date: 07/13/25 Please see the following information for a summary of their discharge status. Subjective Subjective: Pt reports that her shoulder is feeling a little better but now the other shoulder is bothering her Pain L shoulder pain: Pain Intensity (Out of 10): 4 Overall Improvement % Improvement: 80 Objective Objective/Function: R shoulder flex L 160 IR T12 B ER L 65 Goals Goal 1:: I HEP Goal Progress: Goal Met Goal 2:: Decrease L shoulder pain by 50% Goal Progress: Goal Met Goal 3:: Increase L shoulder AROM (R shoulder flex 141 and L 120 (pain R) IR T12 B ER R 55, L 61) Goal Progress: Goal Met Goal 4:: Be able to sit with retracted shoulder and upright posture Goal Progress: Goal Met Plan Plan: DC PT to HEP D/C Information Discharge Comments: DC PT to HEP d/c sentence: If there are questions or concerns regarding this patient's physical therapy, please feel free to call me at [phone]. Thank you for the referral of this patient. Sincerely, Jovana Quevedo, MPT Balance/Gait/Functional tests Balance/Special Test Scores Quick DASH Score: 18.1800 Improvement % Improvement: 80
== END 2025-07-13 11:58 | disposition home or self-care (01) ==
LOC: PT 10:30
PROVIDERS: PCP Internal Medicine; Referring Provider Internal Medicine; Visit Provider Internal Medicine
DX: M25.512 Pain in left shoulder (principal)
CPT/HCPCS: 97110; 97140; 97162